=== PATIENT | male | born 1945 | race Caucasian/White ===

== ENCOUNTER → 2017-02-14 11:44 | Day surgery (SDC) | payer OTHER ==
--- NOTE | 2017-01-24 17:04 | HP ---
CC: Anjel Reyes MD, at [facility] ADMISSION HISTORY AND PHYSICAL: DATE OF ADMISSION: 01/31/17 CHIEF COMPLAINT: Bilateral inguinal and umbilical hernias. HISTORY OF PRESENT ILLNESS: This is a 71-year-old generally healthy male who for the past 2 to 3 ye ars has noted bulging in both groins, left greater than right. These have been associated with occas ional achiness related to activity, though nothing to suggest incarceration or strangulation. The u mbilical area has been asymptomatic. He denies any change in GI or symptoms. He was seen in the office by Dr. Allison on 01/18/17, at which time exam confirmed the presence of bilateral inguinal hernias which were reducible and a small nontender umbilical hernia. Dr. Allison has discussed with him the indications for repair, the risks, benefits, and alternatives and the patient would like to proceed as scheduled with laparoscopic repair of bilateral inguinal hernias with mesh and repair of umbilical hernia. 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 PAST SURGICAL HISTORY: Previous surgeries include: 1. Left eyebrow lift. 2. ORIF of a toe fracture. CURRENT MEDICATIONS: 1. Aspirin 81 mg once daily which he will hold for 1 week preoperatively. 2. Glucosamine and chondroitin once daily. 3. Multivitamin once daily. 4. Rnzt-kzz-qzfpnya eye drops for dry eyes. 5. Vitamin C 500 mg once daily. 6. Viagra 100 mg 1/2 to 1 tablet p.r.n. DRUG ALLERGIES: None known. FAMILY HISTORY: Negative for anesthesia problems, bleeding or clotting disorders. SOCIAL HISTORY: The patient is . 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 He is a nonsmoker and drinks between 1 and 2 drinks per day. Denies other drug use. REVIEW OF SYSTEMS: General: No recent constitutional symptoms or acute illnesses. His weight has b een stable. Cardiovascular: He has a long history of occasional palpitations that last for 10 to 1 5 seconds and not associated with any chest pain or lightheadedness. He has not had any workup othe r than routine in-office EKG's and there have been no recent changes. Respiratory: No history of a sthma, chronic cough, or shortness of breath. GI: No problems reported. He did undergo colonoscop y within the past 5 years and there were a couple of polyps removed at that time. He is due for a r epeat exam later this year. He denies any interval symptoms. : Somewhat decreased stream. Noct uria x1 to 2. No other reported problems. Endocrine: No diabetes or thyroid dysfunction. Musculo skeletal: He does well in terms of arthritic pain with the current glucosamine and chondroitin prod uct. PHYSICAL EXAMINATION GENERAL: Well-nourished, well-developed male in no acute distress. VITAL SIGNS: Height 71 inches, weight 180 pounds. Temperature 97.5, blood pressure 118/68, pulse 6 6, respirations 16. HEENT: Pupils equal, round, and reactive. EOMs intact. He has a left-sided Kincaid's palsy. He does have bilateral hearing aids. Oropharynx: Teeth in good repair. No intraoral lesions. NECK: No lymphadenopathy, thyromegaly, or masses. LUNGS: Clear to auscultation. No wheezes or rales. HEART: Regular rate and rhythm. No murmur appreciated. ABDOMEN: Soft, nontender to palpation. No palpable masses or organomegaly. Hernia exams as noted i n the HPI per Dr. Allison, not re-examined. EXTREMITIES: No edema. RECTAL: Not done. BACK: No spinous process or CVA tenderness. NEUROLOGICAL: Grossly intact other than the Kincaid's palsy. SKIN: Warm and dry. No suspicious rashes or lesions. IMPRESSION: Bilateral inguinal and umbilical hernias. PLAN: Laparoscopic repair, bilateral inguinal hernias with mesh; repair, umbilical hernia. MOISES RIVERA [id number]/[facility] #: [id number]
[~2017-02-14 11:44] MED LIST: Acetaminophen TAB* 325 MG PO PRN; Buffered Lidocaine 1% SYRIN* 3 ML/SYR SYRINGE INTRADERM ONE; Bupivacaine 0.5% W/EPI SDV* 30 ML VIAL ONE; Dexamethasone IV* 4 MG/ML 1 ML (4 MG) ONE; DiMENhydriNATE IV* 50 MG/ML VIAL IV PUSH PRN; DiMENhydriNATE IV* 50 MG/ML VIAL ONE; Famotidine IV* 10 MG/ML 2 ML (20 mg) IV ONE; Famotidine IV* 10 MG/ML 2 ML (20 mg) ONE; HYDROmorphone* 1 MG/ML 1 ML SYR IV PRN; Ketorolac INJ* 30 MG/ML 1 ML VIAL ONE; Lidocaine 2% PF* 5 ML VIAL ONE; Midazolam* 1 MG/ML 5 ML VIAL (5 MG) ONE; Ondansetron INJ* 2 MG/ML VIAL ONE; Propofol* 10 MG/ML 20 ML BTL IV PUSH ONE; Rocuronium* 10 MG/ML VIAL ONE; Succinylcholine* 20 MG/ML 10 ML VIAL ONE; ceFAZolin 2 GM PREMIX(*) 2 GM/50 ML BAG IVPB ONE; fentaNYL* 50 MCG/ML 2 ML VIAL (100 MCG VIAL) ONE; oxyCODONE TAB* 5 MG TAB ONE; oxyCODONE TAB* 5 MG TAB PO PRN
[2017-02-14 17:20] VITALS: BP 112/61
--- NOTE | 2017-02-15 04:53 | OP ---
DATE OF OPERATION: 02/14/17 [facility] DATE OF : 45 SURGEON: Miguel A Allison MD ELIGIBILITY CONSULTANT: MOISES Funes ANESTHESIOLOGIST: Casandra Hernandez MD ANESTHESIA: General endotracheal. PRE-OP DIAGNOSES: Bilateral inguinal hernias and umbilical hernia. POST-OP DIAGNOSES: Bilateral inguinal hernias and umbilical hernia. OPERATIVE PROCEDURE: Laparoscopic preperitoneal repair of bilateral inguinal hernias with mesh and open repair of umbilical hernia. ESTIMATED BLOOD LOSS: Minimal. IV FLUIDS: Crystalloid. SPECIMENS: None. DRAINS: None. COMPLICATIONS: None. COUNTS: The instrument, needle, and sponge counts were correct. DESCRIPTION OF PROCEDURE: The patient was brought to the operating room and placed on the table supine. Sequential compression devices were placed on both lower extremities. He was administered general anesthesia and Buck catheter was placed. His abdomen was prepped and draped in the usual sterile fashion, then time-out was performed. Local anesthetic was infiltrated into the skin and soft tissue prior to making each incision. The initial incision was curvilinear infraumbilical incision and then blunt dissection was used to dissect at the rectus fascia to the right of midline. The fascia was incised transversely. The underlying muscles retracted laterally and then preperitoneal balloon dissector was positioned down the pubic symphysis; and, under direct visualization, this was insufflated with air. The balloon dissector was removed and then a 12-mm blunt port was placed with carbon dioxide to insufflate to pressure of 12 mmHg. The addition of two 5-mm trocars in the lower midline was made under direct visualization. Blunt dissection was then used to dissect out the preperitoneal space starting at the midline and extending this laterally identifying Niraj's ligament and there was noted to be a direct inguinal hernia, which was reduced. The inferior epigastric vessels were maintained in their appropriate position. The peritoneum was identified and this was dissected away from the cord structures preserving them. The dissection proceeded laterally to the anterior superior iliac spine. There was an inadvertent entry into the peritoneal sac and this was controlled with endoscopic clip placement. The dissection then proceeded on the left side mimicking what was performed on the right. Again, the dissection identifying the direct inguinal hernia was performed out laterally to the anterior superior iliac spine and also succeeded in small rent in the peritoneal sac which was again closed with endoscopic clip placement. The repair of the hernias was performed with the Bard 3DMax mesh using a large size patch on each side. First the left-sided repair was performed and this was positioned to cover the direct, indirect, and femoral spaces, and the mesh was sutured with the CapSure tacker to the pubic tubercle, Niraj's ligament, anterior abdominal wall musculature, and the lateral abdominal wall musculature well above the inguinal ligament. This mesh placement procedure was repeated for the right side repair. After completing the repair, the ports were removed under direct visualization and carbon dioxide was released. A closure of the anterior rectus fascia was performed with a 0 Polysorb in a running fashion. Next, the umbilical hernia was addressed. First, the umbilical stalk was elevated off the abdominal wall and its attachment was divided. A 1-cm umbilical hernia was identified and the contents were reduced. Fascial edges were identified, healthy fascia was incorporated into the repair using 0 Ti-Cron suture in a running fashion, running to and fro, and tied to itself. Subsequently, the umbilical stalk was reapproximated to the anterior abdominal wall with 3-0 Polysorb. The skin incisions were closed with 4-0 Monocryl in a subcuticular fashion. Steri- Strips were applied. The patient tolerated the procedure well. He was extubated and transferred to recovery room in stable condition. [id number]/[facility] #: [id number] EILEEN
== END | disposition home or self-care (01) ==
LOC: OR 11:44
PROVIDERS: ATTEND Surgery
DX: K40.20 Bilateral inguinal hernia, without obstruction or gangrene, not specified as recurrent (principal); K42.9 Umbilical hernia without obstruction or gangrene; I49.3 Ventricular premature depolarization
CPT/HCPCS: A9270-GY; C1776; C1781; J0330; J0690; J1100; J1240; J1885; J2250; J2405; J2704; J3010

== ENCOUNTER 2017-07-31 08:58 | Emergency (ER) | payer OTHER ==
[2017-07-31 09:11] VITALS: BP 107/69
--- NOTE | 2017-07-31 09:26 | UC ---
Ear Complaint HPI - HPI Summary HPI Summary: 72 yo male presents here to have part of HEARING AID remove from right ear no pain - History of Current Complaint Chief Complaint: UCForeignBody Stated Complaint: FB IN EAR Time Seen by Provider: 07/31/17 09:04 Hx Obtained From: Patient Onset/Duration: Sudden Onset, Lasting Hours Severity Initially: Mild Severity Currently: Mild Pain Intensity: 1 Pain Scale Used: 0-10 Numeric Associated Signs/Symptoms: Positive: Foreign Body Sensation - Allergies/Home Medications Allergies/Adverse Reactions: Allergies Allergy/AdvReac Type Severity Reaction Status Date / Time No Known Allergies Allergy Verified 07/31/17 09:11 Home Medications: Home Medications Warfarin TAB(*) [Coumadin TAB(*)] 5 mg PO DAILY 07/31/17 [History Confirmed 10/06] traZODone TAB* [Desyrel TAB*] 50 mg PO BEDTIME PRN 07/31/17 [History Confirmed 07/31/17] PMH/Surg Hx/FS Hx/Imm Hx Previously Healthy: Yes Cardiovascular History: Other Other Cardiovascular History: valvular heart disease - Surgical History Surgical History: Yes Surgery Procedure, Year, and Place: 30 YRS AGO, RIGHT LITTLE TOE, [facility]. 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 - Family History Known Family History: Positive: Hypertension - Social History Alcohol Use: Daily Alcohol Amount: 1-2 drinks a day Substance Use Type: None Smoking Status (MU): Never Smoked Tobacco Have You Smoked in the Last Year: No Review of Systems Constitutional: Negative Skin: Negative Eyes: Negative ENT: Negative Respiratory: Negative Cardiovascular: Negative Gastrointestinal: Negative Genitourinary: Negative Motor: Negative Neurovascular: Negative Musculoskeletal: Negative Neurological: Negative Psychological: Negative Is Patient Immunocompromised?: No All Other Systems Reviewed And Are Negative: Yes Physical Exam Triage Information Reviewed: Yes Appearance: Well-Appearing, No Pain Distress, Well-Nourished Vital Signs: Initial Vital Signs Temp 97.3 F 07/31/17 09:05 Pulse 79 07/31/17 09:05 Resp 18 07/31/17 09:05 BP 107/69 07/31/17 09:05 Pulse Ox 99 07/31/17 09:05 Vital Signs Reviewed: Yes Eyes: Positive: Conjunctiva Clear ENT: Positive: TMs normal, Other: - FB right ear. 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
== END 2017-07-31 09:30 | disposition home or self-care (01) ==
LOC: UCEAST 08:58
DX: T16.1XXA Foreign body in right ear, initial encounter (principal); W45.8XXA Other foreign body or object entering through skin, initial encounter; Y92.9 Unspecified place or not applicable
CPT/HCPCS: 99211; G0463

== ENCOUNTER 2019-02-03 01:16 | Emergency (ER) | payer MEDICARE, OTHER ==
--- OUTSIDE RECORDS SUMMARY | 2019-02-03 01:27 | XMS REPORT | Continuity of Care Document ---
:1945 External Reference #:[id number] Author Name Jayro Cochran Care Team Providers Name Role Phone Edi Ferreira DO Primary Care Physician Unavailable Payers Date Identification Numbers Payment Provider Subscriber Policy Number: [id number] [employer] Ilya Bang PayID: [id number] [address] [place] [address] Policy Number: [id number] Medicare Ilya Bang PayID: [id number] [address] [place] [address] Advance Directives Description No Information Available Problems Description No Information Family History Date Family Member(s) Observation Comments General Bladder Cancer General Heart Disease General Diabetes Father Hypercholesterolemia Father due to Bladder Cancer () - at 67 Mother due to Natural Causes () - at 96 Onset: Siblings 1 1 brother (full (03/14/2017) brother) with MR, (MV (age 75 Years) repair age 65).arrhythmia hx requiring ablation 1 half brother - hx unknown 3 sisters - oldest sister from [place] 3 half sisters Social History Type Date Description Comments Sex Unknown Marital Status Lives With 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 Lisinopril 09/11/20 Active Tablets 2.5mg 90tab 1/2 tab by Niraj 17 s mouth every F. day Mitchell Harrison Metoprolol 06/22/20 Active Tablets 25mg 180ta 1/2 tablet Niraj Succinate ER 17 ER 24HR bs by mouth F. once a day Mitchell Harrison Glucosamine Active Capsules 1 po bid Unknown Chondroitin 500 00 Complex Multivitamin Active Tablets 1 by mouth Unknown Adult 00 every day Vitamin C Active Tablets 500mg 1 by mouth Unknown 00 twice a day Aspirin Active Tablets 81mg 90tab 1 by mouth Unknown 00 DR s every other day Magnesium Oxide Active Tablets 250mg 1 by mouth Unknown 00 every day Soothe XP Active 2 gtt Left Unknown 00 eye twice daily Soothe Night Active Ointment 1/4 inch Unknown Time 00 application L eye at bedtime Cialis Active Tablets 10mg 1 po qd prn Unknown 00 Sacul 01/25/20 Hx Tablets 5-325mg 20tab 1-2 tab by Lillian Garvey 17 - s mouth every , Unknown 4 hours as MD needed Viagra Hx Tablets 100mg by mouth Unknown 00 - 0.5 or 1 07/24/20 tab 1h 18 before intercourse Aspirin Hx Tablets 81mg 1 by mouth Unknown 00 - DR every day Unknown Ibuprofen Hx Tablets 600mg three times Unknown 00 - a day prn 10/25/20 (rare use) 17 Coumadin Hx Tablets 3mg as directed Unknown 00 - (managed by 09/10/20 Dr. Santi Ferreira) Coumadin Hx Tablets 1mg take as Unknown 00 - directed 09/10/20 (managed by Santi Ferreira) Trazodone HCL Hx Tablets 50mg 1 tab po Unknown 00 - weekly as 10/28/20 needed 18 (very rare) Immunizations Description No Information Available Vital Signs Date Vital Result Comment 01/17/2019 3:14pm Height 72 inches 6'0" Weight 182.00 lb with shoes Heart Rate 72 /min BP Systolic Sitting 104 mmHg BP Diastolic Sitting 74 mmHg BP Systolic Standing 100 mmHg BP Diastolic Standing 70 mmHg BP Systolic Lying Down 122 mmHg la repeat sitting BP Diastolic Lying Down 74 mmHg la repeat sitting BMI (Body Mass Index) 24.7 kg/m2 Ejection Fraction 40-45% stress echo09/26/18 10/29/2018 11:25am Height 72 inches 6'0" Weight 182.00 lb with shoes Heart Rate 72 /min BP Systolic 100 mmHg lue BP Diastolic 76 mmHg lue BMI (Body Mass Index) 24.7 kg/m2 Ejection Fraction 50-55% 02/06/18 echocardiogram 07/25/2018 1:27pm Height 72 inches 6'0" Weight 180.25 lb Heart Rate 68 /min BP Systolic Sitting 104 mmHg LA, reg BP Diastolic Sitting 72 mmHg LA, reg BMI (Body Mass Index) 24.4 kg/m2 Ejection Fraction 50%-55% 02/06/18 echo 12/26/2017 11:12am Height 72 inches 6'0" Weight 182.50 lb Heart Rate 72 /min BP Systolic 110 mmHg L/Arm Reg Cuff BP Diastolic 70 mmHg L/Arm Reg Cuff BMI (Body Mass Index) 24.7 kg/m2 Ejection Fraction 40-45% closer to 40% Echocardiogram 08/22/2017 11/30/2017 2:22pm Heart Rate 76 /min apical BP Systolic 108 mmHg Ra, reg cuff BP Diastolic 66 mmHg Ra, reg cuff BP Systolic Sitting 112 mmHg LA, reg cuff BP Diastolic Sitting 68 mmHg LA, reg cuff BP Systolic Standing 104 mmHg Ra, reg cuff BP Diastolic Standing 66 mmHg Ra, reg cuff 10/25/2017 12:59pm Height 72 inches 6'0" Weight 181.50 lb with shoes Heart Rate 84 /min BP Systolic Sitting 120 mmHg LA reg cuff BP Diastolic Sitting 78 mmHg LA reg cuff BMI (Body Mass Index) 24.6 kg/m2 Ejection Fraction 40%-45% echo 08/22/17 10/03/2017 9:11am Height 72 inches 6'0" Weight 182.00 lb with shoes Heart Rate 76 /min BP Systolic Sitting 116 mmHg Lue reg cuff BP Diastolic Sitting 80 mmHg Lue reg cuff BP Systolic Standing 108 mmHg Lue reg cuff BP Diastolic Standing 76 mmHg Lue reg cuff Respiratory Rate 16 /min BMI (Body Mass Index) 24.7 kg/m2 Ejection Fraction 40-45% 08/22/2017-echo 09/11/2017 9:09am Height 72 inches 6'0" Weight 181.12 lb with shoes Heart Rate 82 /min BP Systolic Sitting 110 mmHg Lue reg cuff BP Diastolic Sitting 70 mmHg Lue reg cuff Respiratory Rate 17 /min BMI (Body Mass Index) 24.6 kg/m2 Ejection Fraction 40-45% date 08/22/2017 ECHO 07/19/2017 10:57am Height 72 inches 6'0" Weight 180.50 lb with shoes Heart Rate 80 /min BP Systolic 132 mmHg LA reg cuff BP Diastolic 80 mmHg LA reg cuff BP Systolic Sitting 126 mmHg LA reg cuff in office BP Diastolic Sitting 84 mmHg LA reg cuff in office BMI (Body Mass Index) 24.5 kg/m2 07/10/2017 10:43am Height 72 inches 6'0" Heart Rate 80 /min BP Systolic Sitting 104 mmHg LA, regular BP Diastolic Sitting 78 mmHg LA, regular BP Systolic Standing 105 mmHg LA, regular, stand BP Diastolic Standing 70 mmHg LA, regular, stand 06/20/2017 1:36pm Height 72 inches 6'0" Weight 176.00 lb with shoes Heart Rate 94 /min BP Systolic Sitting 116 mmHg LA reg cuff BP Diastolic Sitting 74 mmHg LA reg cuff BMI (Body Mass Index) 23.9 kg/m2 Ejection Fraction 55% - 60% Moe 04/21/17 05/17/2017 12:53pm Height 72 inches 6'0" Weight 182.00 lb with shoes Heart Rate 66 /min BP Systolic Sitting 110 mmHg LA reg cuff BP Diastolic Sitting 62 mmHg LA reg cuff BMI (Body Mass Index) 24.7 kg/m2 Ejection Fraction 50% - 55% echo 05/10/17 03/14/2017 1:41pm Height 72 inches 6'0" Weight 187.00 lb w/shoes Heart Rate 70 /min BP Systolic Sitting 132 mmHg LA reg cuff BP Diastolic Sitting 90 mmHg LA reg cuff BP Systolic Standing 106 mmHg la repeat sitting BP Diastolic Standing 61 mmHg la repeat sitting BMI (Body Mass Index) 25.4 kg/m2 Ejection Fraction 60-65% Echo 02/03/17 03/08/2017 11:34am Heart Rate 66 /min BP Systolic 124 mmHg BP Diastolic 72 mmHg Respiratory Rate 18 /min Body Temperature 97.6 F 02/22/2017 1:54pm Heart Rate 72 /min BP Systolic 126 mmHg BP Diastolic 62 mmHg Respiratory Rate 16 /min Body Temperature 97.6 F 01/24/2017 1:05pm Height 71 inches 5'11" Weight 179.00 lb Heart Rate 60 /min BP Systolic 118 mmHg BP Diastolic 68 mmHg Respiratory Rate 16 /min Body Temperature 97.5 F BMI (Body Mass Index) 25.0 kg/m2 01/18/2017 3:12pm Height 71 inches 5'11" Weight 180.00 lb Heart Rate 72 /min BP Systolic 118 mmHg BP Diastolic 78 mmHg Respiratory Rate 18 /min Body Temperature 97.6 F BMI (Body Mass Index) 25.1 kg/m2 Results Test Date Facility Test Result H/L Range Note Basic Metabolic 10/22/2018 [facility] Sodium 140 mmol/L N 135- 145 Panel [address] [place] [address] [phone] Potassium 4.4 mmol/L N 3.5-5.0 Chloride 105 mmol/L N 101-111 Co2 Carbon Dioxide 29 mmol/L N 22-32 Anion Gap 6 mmol/L N 2-11 Glucose 100 mg/dL N 70-100 Blood Urea Nitrogen 22 mg/dL N 6-24 Creatinine 1.00 mg/dL N 0.67-1.17 BUN/Creatinine Ratio 22.0 High 8-20 Calcium 10.1 mg/dL N 8.6-10.3 Egfr Non- 73.2 >60 Egfr 88.6 >60 1 Basic Metabolic Panel 10/17/2018 [facility] Sodium 137 mmol/L N 135-145 [address] [place] [address] [phone] Chloride 104 mmol/L N 101-111 Co2 Carbon Dioxide 28 mmol/L N 22-32 Glucose 109 mg/dL High 70-100 Blood Urea Nitrogen 20 mg/dL N 6-24 Creatinine 0.93 mg/dL N 0.67-1.17 BUN/Creatinine Ratio 21.5 High 8-20 Calcium 10.0 mg/dL N 8.6-10.3 Egfr Non- 79.6 >60 Egfr 96.4 >60 2 Potassium TNP mmol/L 3.5-5.0 3 Anion Gap 5 mmol/L N 2-11 Laboratory test 10/17/2018 [facility] Magnesium 2.0 mg/dL N 1.9-2.[address] [place] [address] [phone] Laboratory test 12/01/2017 [facility] Magnesium 2.0 mg/dL N 1.9-2.[address] [place] [address] [phone] CBC Auto Diff 12/01/2017 [facility] White Blood 7.1 N 3.5- 10.[address] Count 10^3/[place] [address] [phone] Red Blood Count 5.30 10^6/uL N 4.0-5.4 Hemoglobin 15.3 g/dL N 14.0-18.0 Hematocrit 45 % N 42-52 Mean Corpuscular Volume 85 fL N 80-94 Mean Corpuscular Hemoglobin 29 pg N 27-31 Mean Corpuscular HGB Conc 34 g/dL N 31-36 Red Cell Distribution Width 15 % N 10.5-15 Platelet Count 248 10^3/uL N 150-450 Mean Platelet Volume 7 um3 Low 7.4-10.4 Abs Neutrophils 4.1 10^3/uL N 1.5-7.7 Abs Lymphocytes 2.3 10^3/uL N 1.0-4.8 Abs Monocytes 0.5 10^3/uL N 0-0.8 Abs Eosinophils 0.1 10^3/uL N 0-0.6 Abs Basophils 0 10^3/uL N 0-0.2 Abs Nucleated RBC 0 10^3/uL Granulocyte % 58.5 % N 38-83 Lymphocyte % 32.6 % N 25-47 Monocyte % 7.3 % N 1-9 Eosinophil % 1.1 % N 0-6 Basophil % 0.5 % N 0-2 Nucleated Red Blood Cells % 0.1 Protein 12/01/2017 [facility] Total 6.7 g/dL 6.3 - Electrophoresis [address] Protein(Pep) 7.9 [place] [address] [phone] Albumin 3.4 g/dL 3.4-4.7 Alpha-1 Globulin 0.3 g/dL 0.1-0.3 Alpha-2 Globulin 0.9 g/dL 0.6-1.0 Beta Globulin 1.1 g/dL 0.7-1.2 Gamma Globulin 1.0 g/dL 0.6-1.6 Albumin/Globulin Ratio 1.05 Impression See Comment 4 Basic Metabolic Panel 12/01/2017 [facility] Sodium 139 mmol/L N 133-145 [address] [place] [address] [phone] Potassium 4.3 mmol/L N 3.5-5.0 Chloride 108 mmol/L N 101-111 Co2 Carbon Dioxide 23 mmol/L N 22-32 Anion Gap 8 mmol/L N 2-11 Glucose 86 mg/dL N 70-100 Blood Urea Nitrogen 25 mg/dL High 6-24 Creatinine 0.86 mg/dL N 0.67-1.17 BUN/Creatinine Ratio 29.1 High 8-20 Calcium 9.6 mg/dL N 8.6-10.3 Egfr Non- 87.4 >60 Egfr 112.4 >60 5 Inr/Protime 11/06/2017 [facility] Inr 1.06 High 0.77-1.02 6 [address] [place] [address] [phone] Basic Metabolic 09/26/2017 [facility] Sodium 140 mmol/L N 133- 145 Panel [address] [place] [address] [phone] Potassium 4.5 mmol/L N 3.5-5.0 Chloride 106 mmol/L N 101-111 Co2 Carbon Dioxide 27 mmol/L N 22-32 Anion Gap 7 mmol/L N 2-11 Glucose 96 mg/dL N 70-100 Blood Urea Nitrogen 22 mg/dL N 6-24 Creatinine 0.87 mg/dL N 0.67-1.17 BUN/Creatinine Ratio 25.3 High 8-20 Calcium 9.9 mg/dL N 8.6-10.3 Egfr Non- 86.3 N >60 Egfr 110.9 N >60 7 Laboratory test 09/26/2017 [facility] Magnesium 2.0 mg/dL N 1.9-2.7 8 finding [address] [place] [address] [phone] 1 Because ethnic data is not always readily available, this report includes an eGFR for both -Americans and non- Americans. The National Kidney Disease Education Program (NKDEP) does not endorse the use of the MDRD equation for patients that are not between the ages of 18 and 70, are , have extremes of body size, muscle mass, or nutritional status, or are non- or non-. According to the National Kidney Foundation, irrespective of diagnosis, the stage of the disease is based on the level of kidney function: Stage Description GFR(mL/min/1.73 m(2)) 1 Kidney damage with normal or decreased GFR 90 2 Kidney damage with mild decrease in GFR 60-89 3 Moderate decrease in GFR 30-59 4 Severe decrease in GFR 15-29 5 Kidney failure <15 (or dialysis) 2 Because ethnic data is not always readily available, this report includes an eGFR for both -Americans and non- Americans. The National Kidney Disease Education Program (NKDEP) does not endorse the use of the MDRD equation for patients that are not between the ages of 18 and 70, are , have extremes of body size, muscle mass, or nutritional status, or are non- or non-. According to the National Kidney Foundation, irrespective of diagnosis, the stage of the disease is based on the level of kidney function: Stage Description GFR(mL/min/1.73 m(2)) 1 Kidney damage with normal or decreased GFR 90 2 Kidney damage with mild decrease in GFR 60-89 3 Moderate decrease in GFR 30-59 4 Severe decrease in GFR 15-29 5 Kidney failure <15 (or dialysis) 3 Specimen Hemolyzed. Result may not be valid. Unable to report test result due to hemolysis. 4 RESULT: No apparent monoclonal protein on serum electrophoresis. Test Performed by: [address] [id number] 5 Because ethnic data is not always readily available, this report includes an eGFR for both -Americans and non- Americans. The National Kidney Disease Education Program (NKDEP) does not endorse the use of the MDRD equation for patients that are not between the ages of 18 and 70, are , have extremes of body size, muscle mass, or nutritional status, or are non- or non-. According to the National Kidney Foundation, irrespective of diagnosis, the stage of the disease is based on the level of kidney function: Stage Description GFR(mL/min/1.73 m(2)) 1 Kidney damage with normal or decreased GFR 90 2 Kidney damage with mild decrease in GFR 60-89 3 Moderate decrease in GFR 30-59 4 Severe decrease in GFR 15-29 5 Kidney failure <15 (or dialysis) 6 Please note the change in INR reference range effective 17. 7 Because ethnic data is not always readily available, this report includes an eGFR for both -Americans and non- Americans. The National Kidney Disease Education Program (NKDEP) does not endorse the use of the MDRD equation for patients that are not between the ages of 18 and 70, are , have extremes of body size, muscle mass, or nutritional status, or are non- or non-. According to the National Kidney Foundation, irrespective of diagnosis, the stage of the disease is based on the level of kidney function: Stage Description GFR(mL/min/1.73 m(2)) 1 Kidney damage with normal or decreased GFR 90 2 Kidney damage with mild decrease in GFR 60-89 3 Moderate decrease in GFR 30-59 4 Severe decrease in GFR 15-29 5 Kidney failure <15 (or dialysis) 8 non-fasting in 2 weeks Procedures Date Code Description Status 01/17/2019 27302 EKG Tracing & Interpretation Completed 09/26/2018 82866 ECHO Stress Test Incl Perf Contiuous ekg Monitoring Completed W/Phys Superv 07/25/2018 87042 EKG Tracing & Interpretation Completed 02/06/2018 18397 ECHO Transthoracic, Real-Time 2D With Doppler And Completed Color Flow 02/06/2018 08163 ECHO Transthoracic, Real-Time 2D With Doppler And Completed Color Flow 12/26/2017 51679 EKG Tracing & Interpretation Completed 10/25/2017 09719 EKG Tracing & Interpretation Completed 10/03/2017 25529 EKG Tracing & Interpretation Completed 10/03/2017 87354 EKG Tracing & Interpretation Completed 08/22/2017 57406 Echocardiogram, Limited Study Completed 07/19/2017 48349 EKG Tracing & Interpretation Completed 07/10/2017 24662 EKG Tracing & Interpretation Completed 06/21/2017 20977 ECHO Transthoracic, Real-Time 2D With Doppler And Completed Color Flow 06/20/2017 19861 EKG Tracing & Interpretation Completed 06/05/2017 [id number] Diabetic Retinal Eye Exam Completed 05/17/2017 60824 EKG Tracing & Interpretation Completed 05/10/2017 11367 ECHO Stress Test Incl Perf Contiuous ekg Monitoring Completed W/Phys Superv 05/10/2017 41110 ECHO Stress Test Incl Perf Contiuous ekg Monitoring Completed W/Phys Superv 04/21/2017 01175 Color Flow Doppler/Interp & Reprt Completed 04/21/2017 76554 Pulse Wave/Continuous-Interp.RPT Completed 04/21/2017 07201 Echocardiography, Transesophageal, Real Time W/Image Completed 2D W/W/O M-M 03/14/2017 98893 EKG Tracing & Interpretation Completed 02/14/2017 01612 Laparoscopy, Surgical Repair Initial Inguinal Hernia Completed 02/14/2017 71473 Laparoscopy, Surgical Repair Initial Inguinal Hernia Completed 02/03/2017 05346 ECHO Transthoracic, Real-Time 2D With Doppler And Completed Color Flow 02/21/2012 [id number] Colonoscopy Completed 02/14/2012 [id number] Colonoscopy Completed Encounters Type Date Location Provider Dx Diagnosis Office Visit 10/29/2018 [facility] Thalia Hurtado, I42.9 Cardiomyopathy, 11:30a N.P. unspecified I34.0 Nonrheumatic mitral (valve) insufficiency R42 Dizziness and giddiness Office Visit 07/25/2018 [facility] Niraj Sexton I42.9 Cardiomyopathy, 1:30p Cardiology Mitchell Harrison unspecified I34.0 Nonrheumatic mitral (valve) insufficiency R07.9 Chest pain, unspecified R42 Dizziness and giddiness Office Visit 12/26/2017 11:20a [facility] Niraj Sexton I10 Essential (primary) Mitchell Harrison hypertension I49.3 Ventricular premature depolarization I44.4 Left anterior fascicular block I34.0 Nonrheumatic mitral (valve) insufficiency I42.9 Cardiomyopathy, unspecified Office Visit 11/30/2017 2:00p [facility] Nurse Visit cc I10 Essential (primary) hypertension Office Visit 10/25/2017 1:30p [facility] Niraj Sexton I44.4 Left ashlie Harrison M.D. fascicular block I49.3 Ventricular premature depolarization I34.0 Nonrheumatic mitral (valve) insufficiency I42.9 Cardiomyopathy, unspecified Office Visit 10/03/2017 9:30a [facility] Flakita Noonan, I49.3 [facility] premature depolarization I34.0 Nonrheumatic mitral (valve) insufficiency I42.9 Cardiomyopathy, unspecified Office Visit 09/11/2017 9:30a [facility] Flakita Noonan, I42.9 Cardiomyopathy, [facility] unspecified I34.0 Nonrheumatic mitral (valve) insufficiency Office Visit 07/19/2017 11:00a [facility] Flakita Noonan, I34.0 Nonrheumatic mitral [place] (valve) insufficiency I42.9 Cardiomyopathy, unspecified Office Visit 06/20/2017 2:00p [facility] Niraj Sexton I34.1 Nonrheumatic Mitchell Harrison mitral (valve) prolapse Office Visit 05/17/2017 1:10p [facility] Niraj Sexton I34.1 Nonrheumatic Mitchell Harrison mitral (valve) prolapse R00.2 Palpitations R06.00 Dyspnea, unspecified Office Visit 03/14/2017 2:00p [facility] Niraj Sexton R01.1 Cardiac murmurChristy M.D. unspecified R00.2 Palpitations I34.0 Nonrheumatic mitral (valve) insufficiency R06.00 Dyspnea, unspecified R94.31 Abnormal electrocardiogram [ECG] [EKG] Office Visit 01/18/2017 3:00p Surgical Miguel A Allison, K40.20 [facility] , FACS hernia, w/o obst or gangrene, not spcf as recur K42.9 Umbilical hernia without obstruction or gangrene Plan of Treatment 01/17/2019 - Niraj Harrison M.D.I42.9 Cardiomyopathy, unspecifiedNew Orders :Echocardiogram, Ordered: 01/17/19Follow up:ov 3-4 mI34.0 Nonrheumatic mitral ( valve) [id number] Dizziness and jiawqoefxU36.31 Abnormal electrocardiogram [ECG] [EKG]
--- NOTE | 2019-02-03 02:32 | ED ---
Palpitations / Dysrhythmia - HPI Summary HPI Summary: This patient is a 73 year old M presenting to ED with a chief complaint of afib since earlier today. He reports he has an apple watch that does EKGs. He saw that he had afib and he reports that he could feel it. On the way to [facility] [place], it stopped. The CC is described as throbbing in my chest, towards my throat. The patient rates the pain 0/10 in severity. Symptoms aggravated by nothing. Symptoms alleviated by spontaneous resolution. Patient reports slightly light- headedness (in the past couple of days). Patient denies SOB and CP. The patient is not on any blood thinners. He had 1.5 glasses of wine tonight. The patient sees Yue Harrison. - History of Current Complaint Chief Complaint: EDDysrhythmPalp Time Seen by Provider: 02/03/19 02:20 Hx Obtained From: Patient Onset/Duration: Sudden Onset, Lasting Minutes, Resolved Severity Currently: None Character: Irregular Aggravating: Nothing Alleviating: Nothing - Allergy/Home Medications Allergies/Adverse Reactions: Allergies Allergy/AdvReac Type Severity Reaction Status Date / Time No Known Allergies Allergy Verified 02/03/19 01:18 PMH/Surg Hx/FS Hx/Imm Hx Endocrine/Hematology History: Denies: Hx Diabetes, Hx Thyroid Disease Cardiovascular History: Reports: Other Cardiovascular Problems/Disorders - periodic arrhythmia, MD is aware Denies: Hx Hypertension Respiratory History: Denies: Hx Asthma, Hx Chronic Obstructive Pulmonary Disease (COPD) GI History: Denies: Hx Ulcer Musculoskeletal History: Reports: Hx Arthritis - knees Sensory History: Reports: Hx Contacts or Glasses - GLASSES reading and driving, Hx Hearing Aid - [facility] History: Reports: Hx Contacts or Glasses - GLASSES reading and driving Neurological History: Reports: Hx Nerve Disease - LEFT FACIAL PARALYSIS, Other Neuro Impairments/Disorders - hx of shingles late summer/early fall 2013 Psychiatric History: Reports: Hx Anxiety - in the past, Hx Depression - in the past - Surgical History Surgery Procedure, Year, and Place: 30 YRS AGO, RIGHT LITTLE TOE, [facility] [place]. 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 Hx Anesthesia Reactions: No Infectious Disease History: No Infectious Disease History: Denies: Hx Clostridium Difficile, Hx Hepatitis, Hx Human Immunodeficiency Virus (HIV), Hx of Known/Suspected MRSA, Hx Shingles, Hx Tuberculosis, Hx Known/ Suspected VRE, Hx Known/Suspected VRSA, History Other Infectious Disease, Traveled Outside the [place] in Last 30 Days - Family History Known Family History: Positive: Hypertension - Social History Alcohol Use: Daily Alcohol Amount: 1-2 drinks a day Substance Use Type: Reports: None Smoking Status (MU): Never Smoked Tobacco Have You Smoked in the Last Year: No Review of Systems Positive: Other - afib. Negative: Chest Pain Negative: Shortness Of Breath Neurological: Other - light-headedness for the past couple of days All Other Systems Reviewed And Are Negative: Yes Physical Exam - Summary Physical Exam Summary: Appearance: Well-appearing, Well-nourished, lying in bed comfortably Skin: Warm, dry, no obvious rash Eyes: sclera anicteric, no conjunctival pallor ENT: mucous membranes moist, pharynx appears normal Neck: Supple, nontender Respiratory: Clear to auscultation, no signs of respiratory distress Cardiovascular: Normal S1, S2. No murmurs. Normal distal pulses in tibial and radial bilaterally. 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 Psychiatric: affect is normal, does not appear anxious or depressed Triage Information Reviewed: Yes Vital Signs On Initial Exam: Initial Vitals Temp Pulse Resp BP Pulse Ox 98.3 F 84 16 114/69 94 02/03/19 01:17 02/03/19 01:17 02/03/19 01:17 02/03/19 01:17 02/03/19 01:17 Vital Signs Reviewed: Yes Diagnostics - Vital Signs Vital Signs Temp Pulse Resp BP Pulse Ox 02/03/19 02:13 75 17 93/69 93 02/03/19 01:17 98.3 F 84 16 114/69 94 - Laboratory Result Diagrams: 02/03/19 02:39 Lab Statement: Any lab studies that have been ordered have been reviewed, and results considered in the medical decision making process. - EKG 0227 Cardiac Rate: NL - 72 BPM EKG Rhythm: Sinus Rhythm Summary of EKG Findings: incomplete LBBB Course/Dx - Course Assessment/Plan: This patient is a 73 year old M presenting to ED with a chief complaint of afib since earlier today. EKG reveals NSR at 72 BPM and incomplete LBBB. The patient will be discharged with dx of paroxysmal atrial fibrillation. Patient understands and agrees with this plan. - Diagnoses Differential Diagnosis/HQI/PQRI: Positive: Other - paroxysmal atrial fibrillation Provider Diagnoses: Paroxysmal atrial fibrillation Discharge - Sign-Out/Discharge Documenting (check all that apply): Patient Departure - discharge Patient Received Moderate/Deep Sedation with Procedure: No - Discharge Plan Condition: Good Disposition: HOME Patient Education Materials: A-fib (Atrial Fibrillation) (ED) Referrals: Niraj Harrison MD [Medical Doctor] - Additional Instructions: Call Dr. Harrison's office on Monday. He may want to order an ambulatory heart monitoring test to see if you are having more bouts of the atrial fib, and he will want to talk to you about the possibility of putting you on anticoagulant medication. If the irregularity recurs, you do not necessarily have to come right to the hospital again unless you feel sick (chest pain, trouble breathing , feeling dizzy or lightheaded, etc.), but if it continues for more than 4-6 hours come in and we may need to cardiovert you. Most of the time your heart will revert back to a normal rhythm fairly quickly, sometimes within a few minutes. - Attestation Statements Document Initiated by Nathan: Yes Documenting Scribe: Noah Garvey Provider For Whom Nathan is Documenting (Include Credential): Omid Kinsey MD Scribe Attestation: I, Noah Garvey, scribed for Omid Kinsey MD on 02/03/19 at 0257. Status of Scribe Document: Ready
[2019-02-03 02:47] LABS: ABS Basophils 0 10^3/ul (0-0.2); ABS Eosinophils 0.1 10^3/ul (0-0.6); ABS Lymphocytes 1.6 10^3/ul (1.0-4.8); ABS Monocytes 0.7 10^3/ul (0-0.8); ABS Neutrophils 5.5 10^3/ul (1.5-7.7); ABS Nucleated RBC 0 10^3/ul; Eosinophil % 1.2 %; Hematocrit 45 % (36-46); Hemoglobin 15.3 g/dL (14.0-18.0); Mean Corpuscular HGB Conc 34 g/dL (31-36); Mean Corpuscular Hemoglobin 30 pg (27-31); Mean Corpuscular Volume 87 fL (80-94); Nucleated Red Blood Cells % 0; Platelet Count 242 10^3/uL (150-450); Red Blood Count 5.14 10^6 /uL (4.18-5.48); Red Cell Distribution Width 14 % (10.5-15); White Blood Count 7.8 10^3/uL (3.5-10.8)
[2019-02-03 03:02] LABS: Albumin 3.9 g/dL (3.2-5.2); Albumin/Globulin Ratio 1.6 (1-3); BUN/Creatinine Ratio 24.4 (8-20); Calcium 9.3 mg/dL (8.6-10.3); EGFR African American 111.4 (>60); EGFR Non-African American 92.1 (>60); Globulin 2.4 g/dL (2-4); Potassium 4.2 mmol/L (3.5-5.0); Total Bilirubin 0.3 mg/dL (0.2-1.0); Total Protein 6.3 g/dL (6.4-8.9)
[2019-02-03 03:24] LABS: TSH (Thyroid Stimulating Horm) 4.16 mcIU/mL (0.34-5.60)
[2019-02-03 04:06] VITALS: BP 103/64
== END 2019-02-03 04:07 | disposition home or self-care (01) ==
LOC: ED 01:16
DX: I48.91 Unspecified atrial fibrillation (principal); I44.7 Left bundle-branch block, unspecified
CPT/HCPCS: 36415; 80053; 84443; 85025; 93005; 99283

== ENCOUNTER 2019-05-15 12:14 | Observation (INO) | payer MEDICARE ==
--- OUTSIDE RECORDS SUMMARY | 2019-05-15 12:26 | XMS REPORT | Continuity of Care Document ---
:1945 External Reference #:[id number] Author Name Edi Ferreira D.O. Address [address] [place] [address] Care Team Providers Name Role Phone HCP/LW on file Primary Care Physician Unavailable Payers Date Identification Numbers Payment Provider Subscriber Effective: 2018 Policy Number: [id number] [employer] Medicare Ppo Saba Veliz PayID: [id number] [place] [address] Problems Active Problems Provider Date Sensorineural hearing loss Anjel Reyes M.D. Onset: 01/13/2011 Psychosexual dysfunction associated with Anjel Reyes M.D. Onset: 05/2014 inhibited libido Bilateral inguinal hernia Anjel Reyes M.D. Onset: 02/12/2015 Mitral valve disorder Anjel Reyes M.D. Onset: 02/09/2017 Medication monitoring Edi Ferreira D.O. Onset: 06/08/2017 Psychogenic impotence Edi Ferreira D.O. Onset: 04/05/2018 Family History Date Family Member(s) Observation Comments Father due to Bladder () - AT AGE 67 Cancer Mother Diabetes, Nos BORDERLINE : (age Mother due to Old Age 96 Years) Onset: (age 93 Mother Dementia started around 65 to 70 Years) Number of Children 1 son and 1 daughter First Son Sesar First Son 10/07/67 First Daughter Denisse First Daughter 10/11/72 Number of Siblings Siblings: 1 brother and 3 sisters First Brother sciatica First Brother Heart Problems of a rapid heart beat sort which resulted in heart damage history of developing valve problem surgery at age 65 was recommended and some kind of repair was done etiology was unclear First Brother TimBlessing in 2012 had MRI at 70 - had had a fall MRI was nl and then one in 2010 showed a area of damage ? cause - Onset: First Sister Parkinson's Disease (01/24/2014) (age 75 Years) Onset: First Sister Colon Cancer ruptured colon and (03/30/2017) terminal w mets to (age 78 Years) liver First Sister Mak age 74 in 2012 some memory decline Second Sister Well Second Sister Eliana 72 in 2011 Third Sister Well Third Sister Aicha age 69 in 2012 Paternal Grandfather Heart Disease Paternal Grandmother of chf in his 50s - unknown cause Maternal Grandfather Heart Disease Maternal Grandfather Stroke Paternal Uncles NH at age 72 - in the 1980s Paternal Uncle other uncle had some kind of heart problem with unknown type of heart operations in his 70 and 80s Social History Type Date Description Comments Sex Unknown Education Highest Level Completed College Marital Status Diet 01/17/2012 Calcium Intake taking a [id number] milk - 8 bo=208 cheese=0 yogurt=0 cottage cheese=0 other=0 goal 1200mg Diet Diet Recall 24 HR breakfast - oatmeal w milk, aplesuce, 1/2 banana snack nuts - pnuts w almonds w cashews and apricot lunch - soup split pea - w crackers, w coffee snack pm nut mix supper - salmon on cream cheese and bagel 1/2, no ghazal other brkfast eggs and toast 1/2 banana and coffee veggies - grows own and has veg beef stew and turkey soup w lots of veg Smoke-Free Home is smoke-free Work Status 1999 Retired [employer] Hand Dominance 04/23/2019 Right-handed Advance Directive 01/13/2011 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 Hobbies 07/25/2008 [employer] Volunteering drives for [employer] Tobacco Use Start: Unknown Denies Cigarette Use ETOH Use 03/30/2017 Rarely consumes alcohol 2 beers or glasses wine a day Recreational Drug Use Denies Drug Use Tobacco Use Start: Unknown Non Smoker / No Tobacco Smoking Status Reviewed: 04/29/19 Non Smoker / No Tobacco Exercise Type/Frequency Exercises regularly tiw ski machine - gym 3/wk and gardening and bowling Sun Exposure moderate amount of sun exposure Sun Exposure Uses sunscreen Seat Belt/Car Seat always uses seat belt Currently Active Patient is currently sexually active Age [address] [place] 21 Years Old Sexual Hx Patients has had 2 sexual partners. Patient states heterosexual. Allergies, Adverse Reactions, Alerts Description No Known Drug Allergies Medications Active Medications SIG Qnty Indications Ordering Date Provider Doxycycline Hyclate 1 twice a day for 42caps A69.20 Edi Ferreira, 2018 100mg 21 days D.O. Capsules Cyclobenzaprine HCL 1 tab by mouth 30tabs Edi Ferreira, 04/23/2019 5mg every night for D.O. Tablets neck pain. will make you drowsy Tramadol HCL 1 by mouth every 6 30tabs Edi Ferreira, 04/23/2019 50mg Tablets hours as needed D.O. for pain Magnesium 1 daily Unknown 04/08/2019 250 Vitamin C 1 by mouth twice Unknown 04/08/2019 500mg Capsules daily Soothe XP 2 drops Left eye Unknown 04/08/2019 Solution twice daily Soothe Nighttime Dry 1/4 inch, Left eye Unknown 04/08/2019 Eye Therapy at bedtime Ointment Sotalol HCL take 1/2 tablet by Unknown 04/05/2019 80mg Tablets mouth twice a day Eliquis 1 tablet by mouth Unknown 03/26/2019 5mg Tablets twice daily Entresto 1/2 tablet by Unknown 03/13/2019 24-26mg Tablets mouth daily Metoprolol Succinate 1/2 tablet once Unknown 02/24/2019 ER daily 25mg Tablets ER 24HR Cialis take 1 tablet by 18tabs F52.21 Edi Ferreira, 04/05/2018 20mg Tablets mouth every day as D.O. needed for erectile dysfunction Glucosamine 500 complex 1 Unknown 08/30/2017 Chondroitin twice daily Multivitamin 1 PO qd 0tabs Anjel Centeno 02/14/2005 Kitty Reyes M.D. History Medications Cephalexin 1 tabs by mouth 10tabs L72.3 Edi Ferreira, 05/04/2018 - 500mg twice a day D.O. 05/09/2018 Tablets until gone Shingrix 1 shot repeat 1units Edi Ferreira, 04/05/2018 - 50mcg once in 2 months D.O. 08/03/2018 Suspension Rec Metoprolol Succinate 1/2 tab by Unknown 12/21/2017 - ER mouth in am and 02/24/2019 25mg Tablets ER 1/2 tab in 24HR evening Lisinopril take one tablet Unknown 12/21/2017 - 2.5mg by mouth every 04/05/2019 Tablets day for high blood pressure Zyrtec Allergy 1 by mouth every 30tabs L56.1 Edi Ferreira, 08/31/2017 - 10mg day D.O. 04/04/2018 Tablets Trazodone HCL take 1 tablet by 90tabs G47.00 Edi Ferreira, 07/13/2017 - 50mg mouth daily at D.O. 07/13/2018 Tablets bedtime for trouble sleeping Metoprolol 1 po daily Unknown 07/12/2017 - 12.5mg 12/21/2017 Warfarin Sodium use as directed, 60tabs Edi Ferreira, 06/13/2017 - 1mg take 1/2-1 tab D.O. 08/30/2017 Tablets by mouth daily Vitamin C 2 daily Unknown 06/06/2017 - 500 06/07/2017 Capsules Aspirin Low Dose take 1 tablet by Unknown 06/06/2017 - 81mg mouth every 03/26/2019 Chewtabs other day (prevent heart disease) Warfarin Sodium take 1-3 tablet 90tabs Edi Ferreira, 06/06/2017 - 3mg by mouth once D.O. 08/30/2017 Tablets daily Potassium Chloride Take 1 Tablet By 5tabs Unknown 06/06/2017 - Liz ER Mouth Daily For 06/11/2017 20Meq Tablets 5 Days While ER Taking Lasix Hydrocodone-Acetamin Take 1 To 2 100tabs Unknown 06/06/2017 - ophen Tablets By Mouth 08/30/2017 5-325mg Tablets Every 6 Hours as Needed For Pain Furosemide Take 1 Tablet By 5tabs Unknown 06/06/2017 - 40mg Mouth Daily For 06/11/2017 Tablets 5 Days Doxycycline Hyclate 1 twice a day 42caps 088.81 Edi Ferreira, 2014 - for 21 days D.O. 06/24/2015 100mg Capsules until gone Doxycycline Hyclate 2 now to prevent 2tabs E906.4 Anjel Centeno 04/05/2014 - lyme disease Mitchell Reyes 04/10/2014 100mg Tablets Calcium 600 1 qd Anjel Centeno 01/17/2013 - 600mg Mitchell Reyes 01/24/2014 Tablets Glucosamine OTC Anjel Centeno 01/16/2012 - Chondroitin Complex Mitchell Reyes 06/08/2017 Capsules Viagra take 1 tablet 18tabs F52.21 dEi Ferreira, 01/07/2010 - 100mg Tablets every 24 hours D.O. 05/03/2018 as needed as directed. maximum daily dose 1 Zoloft 1 po bid 180tabs 296.31 Anjel Centeno 07/25/2008 - 50mg Tablets Mitchell Reyes 08/26/2009 Abilify 1 qd 90tabs 296.31 Anjel Centeno 07/25/2008 - 5mg Tablets Mitchell Reyes 09/26/2009 Oxaprozin 2 PO qd For Knee 28tabs 719.46 Antwon Barreto 06/07/2006 - 600mg Pain Mitchell 06/21/2006 Tablets Lomotil 1 to 2 up to qid 40tabs 787.91 Anjel Centeno 02/20/2006 - 2.5mg;0.025 prn diarrhea Mitchell Reyes 03/02/2006 mg Tablets Abilify 296.31 Anjel Centeno 12/23/2005 - 5mg Tablets Mitchell Reyes 01/23/2008 Calcium 1 PO qd Anjel Centeno 02/14/2005 - 600mg Mitchell Reyes 01/16/2012 Vit C 1 PO qd Anjel Centeno 02/14/2005 - 500mg Mitchell Reyes 04/09/2019 Viagra 1 to 1/2 as 15tabs 302.72 Anjel Centeno 02/14/2005 - 50mg Tablets directed Mitchell Reyes 01/07/2010 Asp 1 Tab qd To 0tabs Anjel Centeno 11/24/2004 - 81mg Tablets Prevent A Stroke Mitchell Reyes 01/26/2017 Amoxil 1 PO tid Until 30caps 466.0 Anjel Centeno 11/24/2004 - 250mg Capsules Gone Mitchell Reyes 12/04/2004 Zoloft 1 PO qod 0tabs 296.31 Unknown - 25mg Tablets 01/23/2008 Abilify 1 po q hs 296.31 Unknown - 5mg Tablets 06/28/2010 Sertraline HCL 2 po qd 90tabs 296.31 Unknown - 50mg 06/26/2010 Tablets Magnesium Oxide 1/2 tablet daily Unknown - 500mg 06/08/2017 Tablets Medications Administered in Office Medication SIG Qnty Indications Ordering Provider Date H1N1 Swine Flu Vaccine Anjel Reyes M.D. 01/07/2010 Injection Immunizations CPT Code Status Date Vaccine Lot # 35960 Given 11/16/2018 Shingrix Zoster (Shingles) Vaccine (HZV) Recomb,Subnit,Adjuvanted 57541 Given 09/21/2018 Influenza Vaccine Split Virus Preservative Free Im Use 05978 Given 09/21/2018 Influenza Vaccine Split Virus Preservative Free Im Use 90616 Given 06/06/2018 Shingrix Zoster (Shingles) Vaccine (HZV) Recomb,Subnit,Adjuvanted 64445 Given 07/13/2017 Influenza Vaccine Split Virus Preservative Free Im [id number] Use 91669 Given 10/09/2015 Influenza Vaccine Split Virus Preservative Free Im Use 99443 Given 06/18/2015 Prevnar 13 [id number] 60779 Given 10/28/2014 Influenza Vaccine Split Virus Preservative Free Im Use 13544 Given 01/24/2014 Adacel or Boostrix, TDaP [id number] 23406 Given 10/25/2013 Flu, Split Virus 3Yrs 70939 Given 10/15/2012 Flu, Split Virus 3Yrs [id number] 57001 Given 08/22/2011 Flu, Split Virus 3Yrs 55253 Given 01/13/2011 Zostavax [id number] 60181 Given 01/13/2011 Pneumococcal Immunization [id number] 70167 Given 09/20/2010 Flu, Split Virus 3Yrs 46924 Given 11/04/2009 Flu, Split Virus 3Yrs [id number] 21342 Given 07/02/2009 Td Immunization [id number] 39707 Given 11/06/2008 Flu, Split Virus 3Yrs 38467 53376 Given 10/09/2007 Flu, Split Virus 3Yrs [id number] 82858 Given 10/14/2005 Flu, Split Virus 3Yrs 67609 Given 11/24/1994 Td Immunization 50929 Given 11/24/1989 Flu, Split Virus 3Yrs Vital Signs Date Vital Result Comment 05/08/2019 1:24pm BP Systolic 126 mmHg BP Diastolic 72 mmHg 04/29/2019 4:13pm BP Systolic 120 mmHg BP Diastolic 80 mmHg Body Temperature 98.4 F 04/23/2019 1:54pm BP Systolic 102 mmHg BP Diastolic 60 mmHg Weight 184.00 lb w/shoes 04/09/2019 9:21am BP Systolic 104 mmHg BP Diastolic 60 mmHg Height 71.50 inches 5'11.50" Weight 180.00 lb BMI (Body Mass Index) 24.8 kg/m2 05/28/2018 6:26pm Respiratory Rate 16 /min Weight 176.00 lb 05/04/2018 2:49pm BP Systolic 108 mmHg BP Diastolic 70 mmHg 04/05/2018 1:56pm BP Systolic 110 mmHg BP Diastolic 68 mmHg Height 72 inches 6'0" with shoes Weight 180.00 lb with shoes BMI (Body Mass Index) 24.4 kg/m2 08/31/2017 10:20am BP Systolic 110 mmHg BP Diastolic 76 mmHg Weight 180.00 lb 07/13/2017 11:45am BP Systolic 114 mmHg Pt's 128/77 BP Diastolic 82 mmHg Pt's 128/77 Weight 178.00 lb 06/08/2017 2:37pm BP Systolic 116 mmHg BP Diastolic 68 mmHg Weight 182.00 lb 03/30/2017 10:01am BP Systolic 128 mmHg BP Diastolic 82 mmHg Heart Rate 70 /min rrr Respiratory Rate 16 /min Height 72.75 inches 6'0.75" Weight 186.00 lb BMI (Body Mass Index) 24.7 kg/m2 02/09/2017 11:16am BP Systolic 130 mmHg BP Diastolic 80 mmHg 01/26/2017 3:36pm BP Systolic 112 mmHg BP Diastolic 75 mmHg Heart Rate 67 /min rrr Height 72 inches 6'0" with sneakers Weight 183.00 lb with sneakers BMI (Body Mass Index) 24.8 kg/m2 02/15/2016 9:10am BP Systolic 118 mmHg BP Diastolic 76 mmHg Heart Rate 70 /min rrr Respiratory Rate 16 /min Height 71.75 inches 5'11.75" Weight 181.00 lb BMI (Body Mass Index) 24.7 kg/m2 07/10/2015 1:08pm BP Systolic 120 mmHg BP Diastolic 70 mmHg Weight 178.00 lb w/shoes 06/18/2015 3:07pm BP Systolic 118 mmHg BP Diastolic 70 mmHg Weight 175.00 lb with sneakers 06/03/2015 2:15pm BP Systolic 100 mmHg BP Diastolic 68 mmHg Weight 176.00 lb 02/12/2015 10:38am BP Systolic 118 mmHg BP Diastolic 80 mmHg Heart Rate 70 /min rrr Respiratory Rate 16 /min Height 71.25 inches 5'11.25" Weight 175.00 lb BMI (Body Mass Index) 24.2 kg/m2 07/03/2014 4:07pm BP Systolic 110 mmHg BP Diastolic 72 mmHg Body Temperature 98.0 F Weight 172.00 lb 04/05/2014 9:43am BP Systolic 100 mmHg BP Diastolic 60 mmHg Weight 177.00 lb 01/24/2014 2:24pm BP Systolic 120 mmHg BP Diastolic 76 mmHg Heart Rate 80 /min Respiratory Rate 16 /min Height 71.5 inches 5'11.50" Weight 180.00 lb BMI (Body Mass Index) 24.8 kg/m2 01/18/2013 2:07pm BP Systolic 112 mmHg BP Diastolic 74 mmHg Heart Rate 80 /min Respiratory Rate 16 /min Height 72 inches 6'0" Weight 178.00 lb BMI (Body Mass Index) 24.1 kg/m2 10/15/2012 3:22pm BP Systolic 128 mmHg BP Diastolic 78 mmHg 09/28/2012 1:14pm BP Systolic 126 mmHg BP Diastolic 70 mmHg Height 71.50 inches 5'11.50" Weight 173.00 lb BMI (Body Mass Index) 23.8 kg/m2 01/17/2012 1:15pm BP Systolic 120 mmHg BP Diastolic 90 mmHg Heart Rate 70 /min Respiratory Rate 16 /min Height 71.50 inches 5'11.50" Weight 186.00 lb BMI (Body Mass Index) 25.6 kg/m2 06/07/2011 2:45pm BP Systolic 100 mmHg BP Diastolic 70 mmHg Heart Rate 70 /min Respiratory Rate 16 /min Height 71.25 inches 5'11.25" Weight 187.00 lb BMI (Body Mass Index) 25.9 kg/m2 01/13/2011 10:50am BP Systolic 130 mmHg BP Diastolic 84 mmHg Heart Rate 80 /min Respiratory Rate 16 /min Height 71.75 inches 5'11.75" Weight 185.00 lb BMI (Body Mass Index) 25.3 kg/m2 Last Menstrual Period 0 07/19/2010 8:56am BP Systolic 118 mmHg BP Diastolic 76 mmHg Heart Rate 80 /min Height 71.75 inches 5'11.75" Weight 188.50 lb BMI (Body Mass Index) 25.7 kg/m2 02/11/2010 2:59pm BP Systolic 108 mmHg BP Diastolic 70 mmHg Weight 194.00 lb 01/07/2010 10:52am BP Systolic 110 mmHg BP Diastolic 70 mmHg Height 71.75 inches 5'11.75" Weight 194.00 lb BMI (Body Mass Index) 26.5 kg/m2 09/26/2009 9:18am BP Systolic 102 mmHg BP Diastolic 72 mmHg Weight 193.00 lb declined to take off sneakers 07/02/2009 9:06am BP Systolic 130 mmHg BP Diastolic 80 mmHg Heart Rate 80 /min Respiratory Rate 16 /min Weight 192.00 lb 01/01/2009 10:44am BP Systolic 116 mmHg BP Diastolic 86 mmHg Heart Rate 70 /min Respiratory Rate 16 /min Height 71 inches 5'11" Weight 197.00 lb BMI (Body Mass Index) 27.5 kg/m2 Last Menstrual Period 0 07/25/2008 5:05pm BP Systolic 120 mmHg BP Diastolic 82 mmHg Height 71.5 inches 5'11.50" Weight 180.00 lb BMI (Body Mass Index) 24.8 kg/m2 Last Menstrual Period 0 12/27/2007 10:55am BP Systolic 100 mmHg BP Diastolic 72 mmHg Heart Rate 70 /min Respiratory Rate 16 /min Height 71.5 inches 5'11.50" Weight 185.00 lb w/out shoes BMI (Body Mass Index) 25.4 kg/m2 06/07/2006 1:06pm BP Systolic 116 mmHg BP Diastolic 76 mmHg Height 73 inches 6'1" Weight 185.00 lb BMI (Body Mass Index) 24.4 kg/m2 02/20/2006 3:34pm BP Systolic 116 mmHg BP Diastolic 72 mmHg Height 72 inches 6'0" Weight 175.00 lb BMI (Body Mass Index) 23.7 kg/m2 10/14/2005 11:37am BP Systolic 120 mmHg BP Diastolic 70 mmHg Height 72 inches 6'0" Weight 173.00 lb BMI (Body Mass Index) 23.5 kg/m2 04/29/2005 4:50pm BP Systolic 112 mmHg BP Diastolic 64 mmHg Body Temperature 98.3 F Height 72 inches 6'0" Weight 174.00 lb BMI (Body Mass Index) 23.6 kg/m2 02/14/2005 2:42pm BP Systolic 116 mmHg BP Diastolic 68 mmHg Heart Rate 80 /min RRR Respiratory Rate 16 /min Easy Height 72 inches 6'0" Weight 176.00 lb BMI (Body Mass Index) 23.9 kg/m2 11/24/2004 11:17am BP Systolic 112 mmHg BP Diastolic 70 mmHg Heart Rate 80 /min Respiratory Rate 16 /min Easy Body Temperature 98.0 F Height 72 inches 6'0" Weight 174.00 lb BMI (Body Mass Index) 23.6 kg/m2 Results Test Date Facility Test Result H/L Range Note Lipid Profile 05/01/2019 [facility] Triglycerides 63 mg/dL 1, 2 (Trig/Chol/HDL) [phone] Cholesterol 127 mg/dL 3 HDL Cholesterol 26.7 mg/dL 4 LDL Cholesterol 88 mg/dL 5 CBC Auto Diff 05/01/2019 [facility] White Blood Count 8.7 10^3/uL N 3.5-10.8 [phone] Red Blood Count 4.82 10^6/uL N 4.18-5.48 Hemoglobin 14.4 g/dL N 14.0-18.0 Hematocrit 42 % N 42-52 Mean Corpuscular Volume 87 fL N 80-94 Mean Corpuscular Hemoglobin 30 pg N 27-31 Mean Corpuscular HGB Conc 34 g/dL N 31-36 Red Cell Distribution Width 13 % N 10-15 Platelet Count 375 10^3/uL N 150-450 Mean Platelet Volume 6.7 fL Low 7.4-10.4 Abs Neutrophils 6.0 10^3/uL N 1.5-7.7 Abs Lymphocytes 1.7 10^3/uL N 1.0-4.8 Abs Monocytes 1.0 10^3/uL High 0-0.8 Abs Eosinophils 0.1 10^3/uL N 0-0.6 Abs Basophils 0.0 10^3/uL N 0-0.2 Abs Nucleated RBC 0.0 10^3/uL Granulocyte % 68.8 % Lymphocyte % 19.0 % Monocyte % 11.3 % Eosinophil % 0.6 % Basophil % 0.3 % Nucleated Red Blood Cells % 0.2 Comp Metabolic Panel 05/01/2019 [facility] Sodium 136 mmol/L N 135- 145 [phone] Potassium 4.4 mmol/L N 3.5-5.0 Chloride 99 mmol/L Low 101-111 Co2 Carbon Dioxide 29 mmol/L N 22-32 Anion Gap 8 mmol/L N 2-11 Glucose 88 mg/dL N 70-100 Blood Urea Nitrogen 17 mg/dL N 6-24 Creatinine 0.78 mg/dL N 0.67-1.17 BUN/Creatinine Ratio 21.8 High 8-20 Calcium 9.3 mg/dL N 8.6-10.3 Total Protein 6.2 g/dL Low 6.4-8.9 Albumin 3.6 g/dL N 3.2-5.2 Globulin 2.6 g/dL N 2-4 Albumin/Globulin Ratio 1.4 N 1-3 Total Bilirubin 0.80 mg/dL N 0.2-1.0 Alkaline Phosphatase 55 U/L N 34-104 Alt 17 U/L N 7-52 Ast 15 U/L N 13-39 Egfr Non- 97.6 >60 Egfr 118.1 >60 6 Laboratory test 05/01/2019 [facility] TSH (Thyroid 2.17 mcIU/mL N 0.34-5.60 finding [phone] Stim Horm) Vitamin B12 997 pg/mL High 180-914 7 Magnesium 2.1 mg/dL N 1.9-2.7 Lyme Disease AB 05/01/2019 [facility] IgG Immunoblot Negative Negative Immunoblot WB [phone] IgG detected against None kDa IgM Immunoblot Negative Negative IgM detected against p41 kDa Lyme Disease Interpretation See Comment 8 Tick-Borne Panel PCR 05/01/2019 [facility] Babesia microti Negative Negative Blood [phone] PCR Babesia ducani Negative Negative Babesia divergens/Mo-1 Negative Negative 9 Anaplasma phagocytophilum Negative Negative Ehrlichia chaffeensis Negative Negative Ehrlichia ewingii/canis Negative Negative Ehrlichia muris eauclairensis Negative Negative 10 B. miyamotoi PCR, B Negative Negative 11 Laboratory test 05/01/2019 [facility] Erythrocyte Sed 50 mm/Hr High 0 -19 finding [phone] Rate C Reactive Protein 139.53 mg/L High <8.01 Xray 04/29/2019 [facility] X-Ray, Cervical no acute 12 Spine Min 4 process Views, Ap, Lat, & Both Oblique Laboratory test 02/27/2019 [facility] Magnesium 2.2 mg/dL N 1.9-2.7 finding [phone] Basic Metabolic 02/27/2019 [facility] Sodium 140 mmol/L N 135-145 Panel [phone] Potassium 4.4 mmol/L N 3.5-5.0 Chloride 105 mmol/L N 101-111 Co2 Carbon Dioxide 29 mmol/L N 22-32 Anion Gap 6 mmol/L N 2-11 Glucose 114 mg/dL High 70-100 Blood Urea Nitrogen 19 mg/dL N 6-24 Creatinine 0.94 mg/dL N 0.67-1.17 BUN/Creatinine Ratio 20.2 High 8-20 Calcium 9.6 mg/dL N 8.6-10.3 Egfr Non- 78.7 >60 Egfr 95.2 >60 13 CBC Auto Diff 02/27/2019 [facility] White Blood Count 6.3 10^3/uL N 3.5-10.8 [phone] Red Blood Count 5.37 10^6/uL N 4.18-5.48 Hemoglobin 16.1 g/dL N 14.0-18.0 Hematocrit 47 % High 36-46 Mean Corpuscular Volume 88 fL N 80-94 Mean Corpuscular Hemoglobin 30 pg N 27-31 Mean Corpuscular HGB Conc 34 g/dL N 31-36 Red Cell Distribution Width 14 % N 10.5-15 Platelet Count 233 10^3/uL N 150-450 Mean Platelet Volume 7.1 fL Low 7.4-10.4 Abs Neutrophils 3.4 10^3/uL N 1.5-7.7 Abs Lymphocytes 2.2 10^3/uL N 1.0-4.8 Abs Monocytes 0.5 10^3/uL N 0-0.8 Abs Eosinophils 0.1 10^3/uL N 0-0.6 Abs Basophils 0 10^3/uL N 0-0.2 Abs Nucleated RBC 0 10^3/uL Granulocyte % 54.5 % Lymphocyte % 35.3 % Monocyte % 7.8 % Eosinophil % 1.9 % Basophil % 0.5 % Nucleated Red Blood Cells % 0.2 CBC Auto Diff 02/03/2019 [facility] White Blood Count 7.8 10^3/uL N 3.5-10.8 [phone] Red Blood Count 5.14 10^6/uL N 4.18-5.48 Hemoglobin 15.3 g/dL N 14.0-18.0 Hematocrit 45 % N 36-46 Mean Corpuscular Volume 87 fL N 80-94 Mean Corpuscular Hemoglobin 30 pg N 27-31 Mean Corpuscular HGB Conc 34 g/dL N 31-36 Red Cell Distribution Width 14 % N 10.5-15 Platelet Count 242 10^3/uL N 150-450 Mean Platelet Volume 7.0 fL Low 7.4-10.4 Abs Neutrophils 5.5 10^3/uL N 1.5-7.7 Abs Lymphocytes 1.6 10^3/uL N 1.0-4.8 Abs Monocytes 0.7 10^3/uL N 0-0.8 Abs Eosinophils 0.1 10^3/uL N 0-0.6 Abs Basophils 0 10^3/uL N 0-0.2 Abs Nucleated RBC 0 10^3/uL Granulocyte % 69.7 % Lymphocyte % 20.0 % Monocyte % 8.7 % Eosinophil % 1.2 % Basophil % 0.4 % Nucleated Red Blood Cells % 0 Comp Metabolic Panel 02/03/2019 [facility] Sodium 137 mmol/L N 135- 145 [phone] Potassium 4.2 mmol/L N 3.5-5.0 Chloride 106 mmol/L N 101-111 Co2 Carbon Dioxide 24 mmol/L N 22-32 Anion Gap 7 mmol/L N 2-11 Glucose 118 mg/dL High 70-100 Blood Urea Nitrogen 20 mg/dL N 6-24 Creatinine 0.82 mg/dL N 0.67-1.17 BUN/Creatinine Ratio 24.4 High 8-20 Calcium 9.3 mg/dL N 8.6-10.3 Total Protein 6.3 g/dL Low 6.4-8.9 Albumin 3.9 g/dL N 3.2-5.2 Globulin 2.4 g/dL N 2-4 Albumin/Globulin Ratio 1.6 N 1-3 Total Bilirubin 0.30 mg/dL N 0.2-1.0 Alkaline Phosphatase 38 U/L N 34-104 Alt 19 U/L N 7-52 Ast 18 U/L N 13-39 Egfr Non- 92.1 >60 Egfr 111.4 >60 14 Laboratory test 02/03/2019 [facility] TSH (Thyroid 4.16 mcIU/mL N 0.34-5.60 finding [phone] Stim Horm) Basic Metabolic 06/12/2018 [facility] Sodium 138 mmol/L N 135-145 Panel [phone] Potassium 4.2 mmol/L N 3.5-5.0 Chloride 102 mmol/L N 101-111 Co2 Carbon Dioxide 28 mmol/L N 22-32 Anion Gap 8 mmol/L N 2-11 Glucose 88 mg/dL N 70-100 Blood Urea Nitrogen 19 mg/dL N 6-24 Creatinine 0.95 mg/dL N 0.67-1.17 BUN/Creatinine Ratio 20.0 N 8-20 Calcium 9.4 mg/dL N 8.6-10.3 Egfr Non- 77.7 >60 Egfr 94.0 >60 15 Laboratory test 05/04/2018 [facility] Surgical SEE RESULT 16 finding [phone] Pathology BELOW Laboratory test 11/06/2017 [facility] Inr/Protime 1.06 High 0.77- 17 finding [phone] 1.02 Laboratory test 08/22/2017 [facility] Inr/Protime 1.71 High 0.89- 18 , 19 finding [phone] 1.11 Inr/Protime 08/15/2017 [facility] Inr 1.13 High 0.89- [phone] 1.11 Inr/Protime 08/07/2017 [facility] Inr 2.88 High 0.89- [phone] 1.11 Inr/Protime 07/31/2017 [facility] Inr 1.93 High 0.89- [phone] 1.11 Inr/Protime 07/17/2017 [facility] Inr 2.07 High 0.89- [phone] 1.11 Inr/Protime 07/10/2017 [facility] Inr 2.22 High 0.89- [phone] 1.11 Inr/Protime 07/07/2017 [facility] Inr 1.98 High 0.89- [phone] 1.11 Inr/Protime 07/03/2017 [facility] Inr 1.68 High 0.89- [phone] 1.11 CBC Auto Diff 06/26/2017 [facility] White Blood 8.1 10^3/uL N 3.5-2 [phone] Count 0.8 Red Blood Count 4.84 10^6/uL N 4.0-5.4 Hemoglobin 13.9 g/dL Low 14.0-18.0 Hematocrit 42 % N 42-52 Mean Corpuscular Volume 87 fL N 80-94 Mean Corpuscular Hemoglobin 29 pg N 27-31 Mean Corpuscular HGB Conc 33 g/dL N 31-36 Red Cell Distribution Width 15 % N 10.5-15 Platelet Count 291 10^3/uL N 150-450 Mean Platelet Volume 7 um3 Low 7.4-10.4 Abs Neutrophils 5.0 10^3/uL N 1.5-7.7 Abs Lymphocytes 2.2 10^3/uL N 1.0-4.8 Abs Monocytes 0.7 10^3/uL N 0-0.8 Abs Eosinophils 0.2 10^3/uL N 0-0.6 Abs Basophils 0.1 10^3/uL N 0-0.2 Abs Nucleated RBC 0 10^3/uL N Granulocyte % 61.6 % N 38-83 Lymphocyte % 27.1 % N 25-47 Monocyte % 8.1 % N 1-9 Eosinophil % 2.3 % N 0-6 Basophil % 0.9 % N 0-2 Nucleated Red Blood Cells % 0 N Laboratory test 06/26/2017 [facility] TSH (Thyroid 1.88 mcIU/mL N 0.34-5.60 finding [phone] Stim Horm) Comp Metabolic 06/26/2017 [facility] Sodium 139 mmol/L N 133-145 Panel [phone] Potassium 4.9 mmol/L N 3.5-5.0 Chloride 106 mmol/L N 101-111 Co2 Carbon Dioxide 25 mmol/L N 22-32 Anion Gap 8 mmol/L N 2-11 Glucose 99 mg/dL N 70-100 Blood Urea Nitrogen 20 mg/dL N 6-24 Creatinine 0.85 mg/dL N 0.67-1.17 BUN/Creatinine Ratio 23.5 High 8-20 Calcium 9.5 mg/dL N 8.6-10.3 Total Protein 6.2 g/dL Low 6.4-8.9 Albumin 4.0 g/dL N 3.2-5.2 Globulin 2.2 g/dL N 2-4 Albumin/Globulin Ratio 1.8 N 1-3 Total Bilirubin 0.30 mg/dL N 0.2-1.0 Alkaline Phosphatase 60 U/L N 34-104 Alt 17 U/L N 7-52 Ast 21 U/L N 13-39 Egfr Non- 88.6 N >60 Egfr 113.9 N >60 20 Inr/Protime 06/26/2017 [facility] Inr 1.73 High 0.89-1.11 [phone] Inr/Protime 06/20/2017 [facility] Inr 1.77 High 0.89-1.11 [phone] Inr/Protime 06/13/2017 [facility] Inr 1.82 High 0.89-1.11 [phone] Inr/Protime 06/09/2017 [facility] Inr 1.93 High 0.89-1.11 21 [phone] Laboratory test finding 06/07/2017 [facility] Inr/Protime 2.71 High 0.89-1.11 [phone] Urine Micro Inhouse 03/30/2017 In House Ua WBC 2-3 22 Ua RBC 6 Ua Casts - Ua Epi 4-5 Ua Other - Ua Glucose - Ua Bilirubin - Ua Ketones - Ua Specific [place] 1.020 Ua Blood - Ua PH 5.0 Ua Protein - Ua Urobilinogen - Ua Nitrite - Ua Leukocytes - Laboratory test 03/24/2017 [facility] TSH (Thyroid 2.70 mcIU/mL N 0.34-5.60 finding [phone] Stim Horm) CBC Auto Diff 02/13/2017 [facility] White Blood 6.7 10^3/uL N 3.5- 10.8 [phone] Count Red Blood Count 5.58 10^6/uL High 4.0-5.4 Hemoglobin 16.3 g/dL N 14.0-18.0 Hematocrit 49 % N 42-52 Mean Corpuscular Volume 87 fL N 80-94 Mean Corpuscular Hemoglobin 29 pg N 27-31 Mean Corpuscular HGB Conc 34 g/dL N 31-36 Red Cell Distribution Width 13 % N 10.5-15 Platelet Count 229 10^3/uL N 150-450 Mean Platelet Volume 7 um3 Low 7.4-10.4 Abs Neutrophils 3.7 10^3/uL N 1.5-7.7 Abs Lymphocytes 2.4 10^3/uL N 1.0-4.8 Abs Monocytes 0.5 10^3/uL N 0-0.8 Abs Eosinophils 0.1 10^3/uL N 0-0.6 Abs Basophils 0 10^3/uL N 0-0.2 Abs Nucleated RBC 0.01 10^3/uL N Granulocyte % 55.4 % N 38-83 Lymphocyte % 35.9 % N 25-47 Monocyte % 6.8 % N 1-9 Eosinophil % 1.6 % N 0-6 Basophil % 0.3 % N 0-2 Nucleated Red Blood Cells % 0.2 N Comp Metabolic Panel 02/13/2017 [facility] Sodium 139 mmol/L N 133- 145 [phone] Potassium 4.0 mmol/L N 3.5-5.0 Chloride 106 mmol/L N 101-111 Co2 Carbon Dioxide 27 mmol/L N 22-32 Anion Gap 6 mmol/L N 2-11 Glucose 100 mg/dL N 70-100 Blood Urea Nitrogen 15 mg/dL N 6-24 Creatinine 0.85 mg/dL N 0.67-1.17 BUN/Creatinine Ratio 17.6 N 8-20 Calcium 9.4 mg/dL N 8.6-10.3 Total Protein 6.4 g/dL N 6.4-8.9 Albumin 4.1 g/dL N 3.2-5.2 Globulin 2.3 g/dL N 2-4 Albumin/Globulin Ratio 1.8 N 1-3 Total Bilirubin 0.70 mg/dL N 0.2-1.0 Alkaline Phosphatase 30 U/L Low 34-104 Alt 19 U/L N 7-52 Ast 21 U/L N 13-39 Egfr Non- 88.9 N >60 Egfr 114.3 N >60 23 Lipid Profile (Trig/Chol/HDL) 02/13/2017 [facility] Triglycerides 96 mg /dL N 24 [phone] Cholesterol 166 mg/dL N 25 HDL Cholesterol 42.6 mg/dL N 26 LDL Cholesterol 104 mg/dL N 27 Laboratory test finding 02/13/2017 [facility] Magnesium 2.0 mg/dL N 1.9-2.7 28 [phone] Urine Micro Inhouse 02/12/2015 In House Ua WBC 0-1 Ua RBC 0-3 Ua Casts - Ua Epi 0-1 Ua Other crystals, sediment Ua Glucose - Ua Bilirubin - Ua Ketones - Ua Specific [place] 1.020 Ua Blood - Ua PH 6.0 Ua Protein tr Ua Urobilinogen - Ua Nitrite - Ua Leukocytes - Basic Metabolic Panel 07/08/2014 [facility] Sodium 137 mmol/L N 133- 145 [phone] Potassium 4.2 mmol/L N 3.7-5.6 Chloride 106 mmol/L N 101-111 Co2 Carbon Dioxide 24 mmol/L N 22-32 Anion Gap 7 mmol/L N 2-11 Glucose 130 mg/dL High 70-100 Blood Urea Nitrogen 19 mg/dL N 6-24 Creatinine 0.88 mg/dL N 0.67-1.17 BUN/Creatinine Ratio 21.6 High 8-20 Calcium 9.4 mg/dL N 8.6-10.3 Egfr Non- 85.9 N >60 Egfr 110.4 N >60 29 Urine Micro Inhouse 01/24/2014 In House Ua WBC - Ua RBC - Ua Casts - Ua Epi - Ua Other - Ua Glucose - Ua Bilirubin - Ua Ketones - Ua Specific [place] 1.020 Ua Blood - Ua PH 5.0 Ua Protein - Ua Urobilinogen - Ua Nitrite - Ua Leukocytes - Lipid Profile 01/30/2013 [facility] Triglycerides 104 mg/dL 40-200 (Trig/Chol/HDL) [phone] Cholesterol 186 mg/dL Less than 200 HDL Cholesterol 49 mg/dL 40-60 30 Cholesterol/HDL Ratio 3.8 Average 1-4.44 LDL Cholesterol 116.2 mg/dL High Less Than 100 31 Laboratory test 01/30/2013 [facility] Hepatitis C Nonreactive Nonreactive 32 finding [phone] Antibody Urine Micro 01/18/2013 In House Ua WBC - Inhouse Ua RBC - Ua Casts - Ua Epi - Ua Other - Ua Glucose - Ua Bilirubin - Ua Ketones - Ua Specific [place] 1.025 Ua Blood - Ua PH 6.0 Ua Protein - Ua Urobilinogen - Ua Nitrite - Ua Leukocytes - CBC Auto Diff 10/01/2012 [facility] White Blood Count 4.7 10^3/uL Low 4.8-10.8 [phone] Red Blood Count 5.14 10^6/uL 4.0-5.4 Hemoglobin 13.2 g/dL Low 14.0-18.0 Hematocrit 41 % Low 42-52 Mean Corpuscular Volume 80 fL 80-94 Mean Corpuscular Hemoglobin 26 pg Low 27-31 Mean Corpuscular HGB Conc 32 g/dL 31-36 Red Cell Distribution Width 18 % High 10.5-15 Platelet Count 238 10^3/uL 150-450 Mean Platelet Volume 8 um3 7.4-10.4 Abs Neutrophils 2.6 10^3/uL 1.5-7.7 Abs Lymphocytes 1.6 10^3/uL 1.0-4.8 Abs Monocytes 0.4 10^3/uL 0-0.8 Abs Eosinophils 0.1 10^3/uL 0-0.6 Abs Basophils 0 10^3/uL 0-0.2 Abs Nucleated RBC 0 10^3/uL Granulocyte % 55.5 % 38-83 Lymphocyte % 33.6 % 25-47 Monocyte % 7.8 % 1-9 Eosinophil % 2.3 % 0-6 Basophil % 0.8 % 0-2 Nucleated Red Blood Cells % 0 Comp Metabolic Panel 10/01/2012 [facility] Sodium 141 mmol/L 133- 145 [phone] Potassium 4.1 mmol/L 3.5-5.0 Chloride 107 mmol/L 101-111 Co2 Carbon Dioxide 29.0 mmol/L 22-32 Anion Gap 5.0 mmol/L 2-11 Glucose 91 mg/dL 70-100 Blood Urea Nitrogen 17 mg/dL 6-24 Creatinine 0.90 mg/dL 0.50-1.40 BUN/Creatinine Ratio 18.9 8-20 Calcium 9.5 mg/dL 8.1-9.9 Total Protein 6.1 GM/DL Low 6.2-8.1 Albumin 3.8 GM/DL 3.2-5.2 Globulin 2.3 GM/DL 2-4 Albumin/Globulin Ratio 1.7 1-3 Total Bilirubin 0.5 mg/dL 0.1-1.0 33 Alkaline Phosphatase 34 U/L 30-110 Alt 22 U/L 14-54 Ast 28 U/L 12-42 Egfr Non- 84.2 >60 Egfr 108.2 >60 34 Laboratory test 10/01/2012 [facility] Erythrocyte Sed 7 MM/HR 0-40 35 finding [phone] Rate Heavy Metal Blool 10/01/2012 [facility] Arsenic Not Detected 36 [phone] Lead 1 37 Mercury <1 [address] [place] [address] Guardian First Name Melonie Guardian Last Name Engst Venous/Capillary Heavy Metals Venous Patient Race Iron & Iron Binding Capacity 10/01/2012 [facility] Iron 60 UG/ML 45- 182 [phone] Unsaturated Iron Binding 389 g/dL Total Iron Binding Capacity 449 g/dL 250-450 Transferrin 321.0 % Iron Saturation 13 % Low 15-55 RPR 10/01/2012 [facility] Syphilis IgG Nonreactive Nonreactive 40 [phone] RPR TNP Nonreactive RPR Titer TNP Pediatric/Maternal NO Laboratory test 10/01/2012 [facility] TSH (Thyroid 1.74 MIU/ML 0.34- 5.60 finding [phone] Stimulating Horm) Vitamin B12 401 pg/mL 180-914 Testosterone Free & 10/01/2012 [facility] Free Testosterone 9.5 ng/dL 9-30 Total [phone] ng/dl Testosterone 397 ng/dL 240-950 41 Cell Morphology 10/01/2012 [facility] RBC Morphology Normal Normal [phone] Urine Micro Inhouse 01/13/2011 In House Ua WBC 0-2 Ua RBC - Ua Casts - Ua Epi 0-1 Ua Other - Ua Glucose - Ua Bilirubin - Ua Ketones - Ua Specific [place] 1.020 Ua Blood - Ua PH 5.0 Ua Protein - Ua Urobilinogen - Ua Nitrite - Ua Leukocytes - Laboratory test 02/11/2010 [facility] Surgical <SEE 42 finding [phone] Pathology NOTE> Comp Metabolic 01/07/2010 [facility] Sodium 142 mmol/L 135- Panel [phone] Potassium 4.6 mmol/L 3.5-5.0 Chloride 105 mmol/L 101-111 Co2 (Carbon Dioxide) 27.0 mmol/L 22-32 Anion Gap 10.0 mmol/L 2-11 43 Glucose 83 mg/dL 70-100 44 BUN 16 mg/dL 6-24 Creatinine 1.00 mg/dL 0.50-1.40 One Over Creatinine 1.00 BUN/Creatinine Ratio 16.0 8-20 Calcium 9.5 mg/dL 8.1-9.9 45 Total Protein 6.3 GM/DL 6.2-8.1 Albumin 4.1 GM/DL 3.2-5.2 Globulin 2.2 GM/DL 2-4 Albumin/Globulin Ratio 1.9 1-3 Bilirubin Total 0.5 mg/dL 0.4-1.5 46 Alkaline Phosphatase 37 U/L Low 39-117 Alt (SGPT) 33 U/L 17-63 Ast (Sgot) 28 U/L 12-42 eGFR Non- 80.0 > 60 eGFR 96.7 > 60 47 Laboratory test 01/07/2010 In House Occult Blood - neg x3 finding Stool CBC With Electronic 01/07/2010 [facility] White Blood 6.1 CUMM 4.8- 10.8 Diff [phone] Count Red Cell Count 5.06 CUMM 4.6-6.2 Hemoglobin 14.7 g/dL 14.0-18.0 Hematocrit 43 % 42-52 Mean Corpuscular Volume 84 um3 80-94 Mean Corpuscular Hemoglob 29 pg 27-31 Mean Corpuscular HGB Cone 35 g/dL 32-36 Redcell Distribution WDTH 13 % 10.5-15 Platelet Count 317 CUMM 150-450 Mean Platelet Volume 6.5 um3 Low 7.4-10.4 Gran % 58.7 % 38-83 Lymph % 31.0 % 25-47 Mononuclear % 7.9 % 1-9 Eosinophil % 1.9 % 0-6 Basophil % 0.5 % 0-2 Abs Lymphs 1.9 1.0-4.8 Abs Mononuclear 0.5 0-0.8 Absolute Neutrophil Count 3.6 1.5-7.7 Abs Eosinophils 0.1 0-0.6 Abs Basophils 0 0-0.2 Laboratory test 09/26/2009 [facility] Surgical <SEE 48 finding [phone] Pathology NOTE> Urine Micro 01/01/2009 In House Urine - Inhouse Microscopic Inhouse Ua Inhouse 01/01/2009 In House Ua Glucose - Ua Bilirubin - Ua Ketones - Ua Specific [place] 1.030 Ua Blood - Ua PH 5.0 Ua Protein - Ua Urobilinogen - Ua Nitrite - Ua Leukocytes - Comp Metabolic Panel 01/01/2009 [facility] Sodium 139 mmol/L 135- 145 [phone] Potassium 4.3 mmol/L 3.5-5.0 Chloride 107 mmol/L 101-111 Co2 (Carbon Dioxide) 27.0 mmol/L 22-32 Anion Gap 5.0 mmol/L 2-11 49 Glucose 88 mg/dL 70-100 50 BUN 12 mg/dL 6-24 Creatinine 0.90 mg/dL 0.50-1.40 One Over Creatinine 1.10 BUN/Creatinine Ratio 13.3 8-20 Calcium 9.7 mg/dL 8.1-9.9 51 Total Protein 6.4 GM/DL 6.2-8.1 Albumin 4.1 GM/DL 3.2-5.2 Globulin 2.3 GM/DL 2-4 Albumin/Globulin Ratio 1.8 1-3 Bilirubin Total 0.8 mg/dL 0.4-1.5 Alkaline Phosphatase 38 U/L Low 39-117 Alt (SGPT) 55 U/L 17-63 Ast (Sgot) 40 U/L 12-42 CBC With Electronic 01/01/2009 [facility] White Blood 7.0 CUMM 4.8- 10.8 Diff [phone] Count Red Cell Count 5.49 CUMM 4.6-6.2 Hemoglobin 15.9 g/dL 14.0-18.0 Hematocrit 47 % 42-52 Mean Corpuscular Volume 85 um3 80-94 Mean Corpuscular Hemoglob 29 pg 27-31 Mean Corpuscular HGB Cone 34 g/dL 32-36 Redcell Distribution WDTH 13 % 10.5-15 Platelet Count 298 CUMM 150-450 Mean Platelet Volume 6.6 um3 Low 7.4-10.4 Gran % 64.6 % 38-83 Lymph % 25.0 % 25-47 Mononuclear % 8.4 % 1-9 Eosinophil % 1.8 % 0-6 Basophil % 0.2 % 0-2 Abs Lymphs 1.8 1.0-4.8 Abs Mononuclear 0.6 0-0.8 Absolute Neutrophil Count 4.5 1.5-7.7 Abs Eosinophils 0.1 0-0.6 Abs Basophils 0 0-0.2 Lipid Profile 12/28/2007 [facility] Cholesterol/HDL 4.02 1-4.97 (Trig/Chol/HDL) [phone] Ratio AVERAGE Cholesterol 181 mg/dL Less Than 200 52 Triglyceride 53 mg/dL 40-200 High Density Lipoprotein 45 mg/dL 40-60 Low Density Lipoprotein 125 mg/dL High Less Than 100 53 Laboratory test 12/28/2007 [facility] PSA Screening 1.03 NG/ML 0-4 54 finding [phone] CBC With Manual 12/28/2007 [facility] White Blood 5.4 CUMM 4.8-10.8 Diff [phone] Count Absolute Neutrophil Count 3.7 Anisocytosis SLIGHT Basophil 1 % 0-2 Hematocrit 46 % 42-52 Hemoglobin 15.5 g/dL 14.0-18.0 Eosenophil 1 % 0-6 Lymphocyte 24 % 5-47 Mean Corpuscular HGB Cone 34 g/dL 32-36 Mean Corpuscular Hemoglob 29 pg 27-31 Mean Corpuscular Volume 84 um3 80-94 Monocyte 5 % 0-13 Mean Platelet Volume 7.0 um3 Low 7.4-10.4 Platelet Count 288 CUMM 150-450 Polysegmented Neutrophil 69 % 38-83 Red Cell Count 5.42 CUMM 4.6-6.2 Redcell Distribution WDTH 15 % 10.5-15 Comp Metabolic Panel 12/28/2007 [facility] One Over Creatinine 0.90 [phone] Anion Gap 7.0 mmol/L 2-11 55 Albumin/Globulin Ratio 1.7 1-3 Albumin 4.0 GM/DL 3.2-5.2 Alkaline Phosphatase 36 U/L Low 39-117 Alt (SGPT) 23 U/L 17-63 Ast (Sgot) 23 U/L 12-42 BUN 16 mg/dL 6-24 Calcium 9.4 mg/dL 8.7-10.2 Chloride 108 mmol/L 101-111 Co2 (Carbon Dioxide) 27.0 mmol/L 22-32 Globulin 2.3 GM/DL 2-4 Glucose 97 mg/dL 70-105 Potassium 4.2 mmol/L 3.5-5.0 Sodium 142 mmol/L 135-145 Bilirubin Total 0.6 mg/dL 0.4-1.5 Total Protein 6.3 GM/DL 6.2-8.1 BUN/Creatinine Ratio 14.5 8-20 Creatinine 1.1 mg/dL 0.5-1.4 Laboratory test 06/07/2006 [facility] Crystals Fluid NONE SEEN 56 finding [phone] CBC With Electronic 02/21/2006 [facility] White Blood 5.8 CUMM 4.8- 10.8 Diff [phone] Count Abs Basophils 0 0-0.2 Abs Eosinophils 0.1 0-0.6 Absolute Neutrophil Count 3.3 1.5-7.7 Abs Lymphs 1.8 1.0-4.8 Abs Mononuclear 0.4 0-0.8 Basophil % 0.4 % 0-2 Hematocrit 49 % 42-52 Hemoglobin 16.7 g/dL 14.0-18.0 Eosinophil % 2.5 % 0-6 Gran % 57.7 % 38-83 Lymph % 31.9 % 20-45 Mean Corpuscular HGB Cone 34 g/dL 32-36 Mean Corpuscular Hemoglob 29 pg 27-31 Mean Corpuscular Volume 85 um3 80-94 Mean Platelet Volume 7.0 um3 Low 7.4-10.4 Mononuclear % 7.5 % 1-9 Platelet Count 301 CUMM 150-450 Red Cell Count 5.68 CUMM 4.6-6.2 Redcell Distribution WDTH 16 % High 10.5-15 Comp Metabolic Panel 02/21/2006 [facility] One Over Creatinine 1.00 [phone] Anion Gap 8.0 mmol/L 2-11 57 Albumin/Globulin Ratio 1.5 1-3 Albumin 4.2 GM/DL 3.2-5.2 Alkaline Phosphatase 39 U/L 39-117 Alt (SGPT) 27 U/L 17-63 Ast (Sgot) 31 U/L 12-42 BUN 14 mg/dL 6-24 Calcium 9.7 mg/dL 8.7-10.2 Chloride 107 mmol/L 101-111 Co2 (Carbon Dioxide) 25.0 mmol/L 22-32 Globulin 2.8 GM/DL 2-4 Glucose 71 mg/dL 70-105 Potassium 3.7 mmol/L 3.5-5.0 Sodium 140 mmol/L 135-145 Bilirubin Total 0.6 mg/dL 0.4-1.5 Total Protein 7.0 GM/DL 6.2-8.1 BUN/Creatinine Ratio 14.0 8-20 Creatinine 1.0 mg/dL 0.5-1.4 Laboratory test 02/21/2006 [facility] Erythrocyte Sed Rate 1 MM/HR 0 -20 finding [phone] TSH 2.17 MIU/ML 0.34-5.60 Ua Inhouse 02/14/2005 In House Ua Glucose NEG Ua Bilirubin NEG Ua Ketones NEG Ua Specific [place] 1.030 Ua Blood NEG Ua PH 5.0 Ua Protein NEG Ua Urobilinogen NEG Ua Nitrite NEG Ua Leukocytes NEG Laboratory test 02/14/2005 In House Urine Microscopic NEG finding Inhouse Laboratory test 02/14/2005 [facility] PSA Screening 1.0 NG/ML 0-4 58 finding [phone] 1 FASTING 12 HOUR 2 Desirable: <150 Borderline High: 150-199 High: 200-499 Very High: >500 3 Desirable: <200 Borderline High: 200-239 High: >239 4 Low: <40 Desirable: 40-60 High: >60 5 Desirable: <100 Near Optimal: 100-129 Borderline High: 130-159 High: 160-189 Very High: >189 6 Because ethnic data is not always readily [...] 15-29 5 Kidney failure <15 (or dialysis) 7 Normal Range 180 to 914 Indeterminate Range 145 to 180 Deficient Range <145 8 Specific serologic response to B. burgdorferi infection is not detected, but cannot rule out early infection during which low or undetectable antibody levels to B. burgdorferi may be present. If clinically indicated, a new serum specimen should be submitted in 7-14 days. ADDITIONAL INFORMATION Per CDC criteria, the Lyme IgG Immunoblot is interpreted as positive if IgG-class antibodies are detected to >=5 B. burgdorferi proteins, and the Lyme IgM Immunoblot is interpreted as positive if IgM-class antibodies are detected to >=2 B. burgdorferi proteins. Immunoblot patterns not meeting these criteria should not be interpreted as positive. Epitopes from certain B. burgdorferi proteins (e.g., p41) are conserved across other bacteria, which may lead to the detection of IgM- and/or IgG-class antibodies on the Lyme disease immunoblots in patients without Lyme disease. Immunoblot should only be ordered on specimens that are positive or equivocal by a FDA-licensed Lyme disease antibody screening test (e.g., EIA). Results of the Lyme IgM immunoblot should not be considered in patients with >=30 days of symptoms. Test Performed by: [facility] [address] [place] [address] 9 ADDITIONAL INFORMATION This test was developed and its performance characteristics determined by [facility] in a manner consistent with CLIA requirements. This test has not been cleared or approved by the U.S. Food and Drug Administration. 10 ADDITIONAL INFORMATION This test was developed and its performance characteristics determined by [facility] in a manner consistent with CLIA requirements. This test has not been cleared or approved by the U.S. Food and Drug Administration. 11 ADDITIONAL INFORMATION This test was developed and its performance characteristics determined by [facility] in a manner consistent with CLIA requirements. This test has not been cleared or approved by the U.S. Food and Drug Administration. Test Performed by: [address] [address] 12 reduced disc height, good cervical lordosis, degenerative disc disease suggested. 13 Because ethnic data is not always readily [...] 15-29 5 Kidney failure <15 (or dialysis) 14 Because ethnic data is not always readily [...] 15-29 5 Kidney failure <15 (or dialysis) 15 Because ethnic data is not always readily [...] 15-29 5 Kidney failure <15 (or dialysis) 16 SEE RESULT BELOW Name: SABA VELIZ : [address]: Edi Ferreira DO Acct: [id number] Unit: [id number] AGE: 72 Location: [facility] Re05/04/18 SEX: M Status: REG REF SPEC: [id number] JAYCEE: 05/04/18-1725 [facility] DR: Edi Ferreira DO REQ: [id number] RECD: 05/07/18-1313 STATUS: SOUT _ ORDERED: LEVEL 4 COMMENTS: [id number] FINAL DIAGNOSIS Skin, right arm, excision: -- Proliferating pilar tumor. PRE-OPERATIVE DIAGNOSIS L72.3 sebaceous cyst, 3 x 2 cm GROSS DESCRIPTION The specimen is received in formalin labeled, Skin/Cyst Right Arm, and consists of a 1.9 x 1.8 x 0.9 cm translucent dove rubbery soft tissue fragment with a small amount of adherent dove-zapata fibro membranous tissue. The cut surface is translucent dove-yellow and gelatinous. The specimen is inked, serially sectioned and inbound sales representative sections are submitted in one cassette. Signed by and Reported on: Meeta Patterson MD 05/08/18 1456 END OF REPORT DEPARTMENT OF PATHOLOGY, [address] [place] [address] Mil Quintanilla M.D. Director [facility] # [id number] 17 Please note the change in INR reference range effective 17. 18 ORDERED:06/08/17 EXPIRES: 12/09/17 19 ORDERED:06/08/17 EXPIRES: 12/09/17 20 Because ethnic data is not always readily [...] 15-29 5 Kidney failure <15 (or dialysis) 21 Make this a standing order. 22 void, clear, yellow 23 Because ethnic data is not always readily [...] 15-29 5 Kidney failure <15 (or dialysis) 24 Desirable <150 Borderline high 150-199 High 200-499 Very High >500 25 Desirable <200 Borderline high 200-239 High >239 26 Low <40 Desirable: 40-60 High: >60 27 Desirable: <100 mg/dL Near Optimal: 100-129 mg/dL Borderline High: 130-159 mg/dL High: 160-189 mg/dL Very High: >189 mg/dL 28 FASTING 29 Because ethnic data is not always readily [...] 15-29 5 Kidney failure <15 (or dialysis) 30 HDL Interpretation: Undesirable: High Risk: Less than 40 MG/DL Desirable: Low Risk: Greater than 60 MG/DL 31 LDL Interpretation: Low Risk Optimal Level: LDL Less than 100 MG/DL Near or Above Optimal: LDL 100-129 MG/DL Borderline High Risk: LDL 130-159 MG/DL High Risk: LDL 160-189 MG/DL Very High Risk: LDL Greater than 189 MG/DL 32 PT IS FASTING 33 A metabolite of Naproxen, O-desmethylnaproxen, has been shown to interfere with the Jendrassik-Montauk method for measuring total bilirubin. Samples from patients who have taken Naproxen have shown spurious elevation in total bilirubin levels. 34 Because ethnic data is not always readily [...] 15-29 5 Kidney failure <15 (or dialysis) 35 @10/01/12 1355: Cell Morphology added. RFLXG=RBC MORPH. 36 Reference 0-12 37 Reference 0-9 38 Reference 0-9 39 Reference 0.0-4.9 40 Warning: A positive result is not useful for establishing a diagnosis of syphilis. In most situations, such a result may reflect a prior treated infection; a negative result can exclude a diagnosis of syphilis except for incubating or early primary disease. 41 Test Performed by: [address] [address] Ancillary Services Manager: Benito Gomez III, M.D. R 42 ---- RUN DATE: 02/15/10 [facility] NMI LIVE PAGE 1 RUN TIME: 1158 Specimen Inquiry RUN USER: INTERFACE -- Name: SABA VELIZ Status: REG REF Re02/11/10 Age/Sex: 64/M Unit#: [id number] Location: [facility] : [birth year] -- Specimen: [id number] SOUChristine Spec Date: 02/11/[address]: Anjel martinez MD Spec Type: SURGICAL P Received: 02/12/10-1013 Copies to: SPECIMEN RIGHT SHOULDER LESION HISTORY PRE-OP DIAGNOSIS: Neoplasm uncertain CLINICAL INFORMATION: Right shoulder, present for one year, more red/rais ed recently, 2 cm. diameter ovoid, greasy, scaly macule. Slightly raised, removed with curettage GROSS DESCRIPTION Specimen received in formalin labelled Saba Veliz, Skin Right Shoulder, and consists of multiple, irregular, keratotic fragments measuring 1.2 x 0.3 x 0.2 cm. Submitted entirely, one cassette. DIAGNOSIS Skin, right shoulder, shave biopsy: A. Pigmented hyperparakeratotic actinic keratosis. B. No melanocytic neoplasia identified. C. Lesion is transected along its base (see comment). COMMENT This is a superficial shave biopsy which does not include the dermal-epidermal interface along much of its length. The epidermis demonstrates dysplastic features with overlying hyperparakeratosis and squamous pigment deposition. A small fragment of tissue demonstrating dermis also demonstrates post inflammatory hyperpigmentation. I see no evidence of a neoplastic melanocytic process. The deep margin of the specimen cannot be adequately assessed based on this specimen. Signed Electronically by: MIL QUINTANILLA MD 02/15/10 1157 -- -- DEPARTMENT OF PATHOLOGY, [address] [place] [address] [facility] Permit #[id number] Mil Quintanilla M.D. Director Luminita MarinescMitchell huang -- 43 Anion gap measurement may be of limited value in the presence of any alkalosis, especially in a combined acid base disorder. . 44 Note change in reference range as of 07/10/08. The change was based on recommendations from the [place] [employer]. 45 Please note change in reference range effective 08 . 46 A metabolite of Naproxen, O-desmethylnaproxen, has been shown to interfere with the Jendrmaryik-Rosa method for measuring total bilirubin. Samples from patients who have taken Naproxen have shown spurious elevation in total bilirubin levels. 47 Because ethnic data is not always readily [...] 15-29 5 Kidney failure <15 (or dialysis) 48 ---- RUN DATE: 09/30/09 [facility] NMI LIVE PAGE 1 RUN TIME: 1346 Specimen Inquiry RUN USER: INTERFACE -- Name: SABA VELIZ Status: REG REF Re09/26/09 Age/Sex: 64/M Unit#: [id number] Location: [facility] : 45 -- Specimen: [id number] SOUT Spec Date: 09/26/09 [facility] Dr: Antwon gtz MD Spec Type: SURGICAL P Received: 09/29/09-1141 Copies to: SPECIMEN SHAVE BIOPSY OF LEFT ANTERIOR SHOULDER HISTORY PRE-OP DIAGNOSIS: Neoplasm, uncertain. CLINICAL INFORMATION: 3/4 cm. irregularly shaped well but demarcated soft maculopapule with mild background erythema and overlying scaling. GROSS DESCRIPTION The specimen is received in formalin labelled Saba Veliz, Skin Left Shoulder, and consists of a shave skin specimen with a hyperkeratotic skin measuring 0.5 x 0.5 x 0.2 cm. Bisected and submitted entirely in one cassette. DIAGNOSIS Skin, left shoulder, shave biopsy: A. Skin with epidermis with few apoptotic bodies, hyperkeratosis, and lymphocytic infiltrate. B. Lichenoid inflammatory infiltrate within the superficial dermis composed predominantly of lymphocytes with rare plasma cells and macrophages. C. Pigment incontinence. D. No evidence of malignancy. Signed Electronically by: PEDRO LUIS ABDI 09/30/09 1346 -- -- DEPARTMENT OF PATHOLOGY, [address] [place] [address] [facility] Permit #[id number] Mil Quintanilla M.D. Director Pedro Luis Abdi M.D. Plant Taxonomist Dir magaly -- 49 Anion gap measurement may be of limited value in the presence of any alkalosis, especially in a combined acid base disorder. . 50 Note change in reference range as of 07/10/08. The change was based on recommendations from the [place] [employer]. 51 Please note change in reference range effective 08 . 52 Classification: Desirable . 53 CALCULATED LDL APPROXIMATES THE VALUE OF A DIRECT LDL MEASUREMENT. Classification: Near or above optimal . 54 * SERUM LEVELS OF PSA MEASURED USING THE ALFONSO JEANCARLOS ACCESS HYBRITECH IMMUNOASSAY SHOULD NOT BE INTERPRETED ABSOLUTE EVIDENCE OF THE PRESENCE OR ABSENCE OF DISEASE. THE PSA VALUE SHOULD BE USED IN CONJUNCTION WITH OTHER PERTINENT CLINICAL DIAGNOSTIC PROCEDURES. 55 Anion gap measurement may be of limited value in the presence of any alkalosis, especially in a combined acid base disorder. . 56 JOINT FLUID LEFT KNEE 57 Anion gap measurement may be of limited value in the presence of any alkalosis, especially in a combined acid base disorder. . 58 * SERUM LEVELS OF PSA MEASURED USING THE ALFONSO CRMnext ACCESS HYBRITECH IMMUNOASSAY SHOULD NOT BE INTERPRETED ABSOLUTE EVIDENCE OF THE PRESENCE OR ABSENCE OF DISEASE. THE PSA VALUE SHOULD BE USED IN CONJUNCTION WITH OTHER PERTINENT CLINICAL DIAGNOSTIC PROCEDURES. Procedures Date Code Description Status 04/29/2019 19266 X-Ray, C-Spine Complete, Min 4 Completed 05/04/2018 57988 Excise Benign Lesion 2.1-3CM Trunk/Arm/Leg Completed 01/27/2017 94185 ECG Monitor/Review & Interpretation, W/Visual Completed Superimpos Scan 01/27/2017 22743 ECG Monitor/Recording W/Scanning Completed 01/26/2017 32487 ECG Monitor/Review & Interpretation, W/Visual Completed Superimpos Scan 01/26/2017 27251 ECG Monitor/Recording W/Scanning Completed 01/26/2017 99503 Electrocardiogram Complete Completed 07/02/2015 29713 Removal Of Foreign Body From Ear Completed 07/03/2014 85940 Electrocardiogram Complete Completed 02/14/2012 98264834 Colonoscopy Completed 01/17/2012 57235 Remove Impact Cerumen Requiring Instrument, Unilateral Completed 01/13/2011 73129 Pure Tone, Threshold Completed 02/11/2010 24027 Biopsy Skin Lesion Single Completed 09/26/2009 03779 Shave Skin Lesion .6-1CM Trunk/Arm/Leg Completed 07/31/2009 0 Payment Completed 01/26/2009 0 Payment Completed 01/29/2008 0 Payment Completed 06/08/2006 57322 X-Ray Knee, Complete Completed 06/07/2006 81032 X-Ray Knee,Ap&Lateral Oblique Views Completed 06/07/2006 73732 Inject/Drain Joint/Bursa Major Completed 04/27/2006 28576 Sigmoidoscopy Diagnostic Completed 04/29/2005 99132 I & D Abscess Simple Completed 04/25/2005 0 Payment Completed 02/14/2005 83375 Electrocardiogram Complete Completed 12/27/2004 0 Payment Completed 11/24/2004 60845 X-Ray Chest Two Views Completed Encounters Type Date Location Provider Dx Diagnosis Office Visit 05/08/2019 Main Office Edi Ferreira, M25.562 Pain in left knee 1:15p D.OJojo M54.2 Cervicalgia M54.5 Low back pain 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 M54.2 Cervicalgia I34.1 Nonrheumatic mitral (valve) prolapse F52.21 Male erectile disorder M54.5 Low back pain R50.9 Fever, unspecified R25.2 Cramp and spasm Office Visit 04/23/2019 1:30p Main Office Edi Ferreira D.O. M54.2 Cervicalgia I34.1 Nonrheumatic mitral (valve) prolapse F52.21 Male erectile disorder G47.00 Insomnia, unspecified Z79.01 correction (current) use of anticoagulants M25.512 Pain in left shoulder Office Visit 04/09/2019 9:15a Main Office Edi Ferreira I34.1 Nonrheumatic mitral D.O. (valve) prolapse F52.21 Male erectile disorder G47.00 Insomnia, unspecified Z79.01 correction (current) use of anticoagulants Z00.00 Encntr for general adult medical exam w/o abnormal findings Z68.24 Body mass index (BMI) 24.0-24.9, adult Office Visit 05/28/2018 4:00p Main Office Pam Joaquin H69.92 Unspecified P.A. Eustachian tube disorder, left ear H69.91 Unspecified Eustachian tube disorder, right ear Office Visit 05/04/2018 2:30p Main Office Edi Ferreira D.O. L72.3 Sebaceous cyst F52.21 Male erectile disorder Office Visit 04/05/2018 2:00p Main Office Edi Ferreira D.O. L72.3 Sebaceous cyst G47.00 Insomnia, unspecified I34.1 Nonrheumatic mitral (valve) prolapse Z79.01 correction (current) use of anticoagulants Z00.01 Encounter for general adult medical exam w abnormal findings F52.21 Male erectile disorder Z71.89 Other specified counseling Office Visit 08/31/2017 10:00a Main Office Edi Ferreira G47.00 Insomnia , D.O. 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 (valve) prolapse Z51.81 Encounter for therapeutic drug level monitoring Z79.01 correction (current) use of anticoagulants Office Visit 03/30/2017 10:00a Main Office Anjel Centeno Z12.11 Encounter for Mitchell Reyes screening for malignant neoplasm of colon Z00.01 Encounter for general adult medical exam w abnormal findings N40.0 Benign prostatic hyperplasia without lower urinry tract symp I34.1 Nonrheumatic mitral (valve) prolapse Z71.89 Other specified counseling Office Visit 02/09/2017 11:15a Main Office Anjel Centeno K40.00 Bi inguinal Mitchell Reyes hernia, w obst, w/o gangrene, not spcf as recur I34.0 Nonrheumatic mitral (valve) insufficiency I34.1 Nonrheumatic mitral (valve) prolapse Z71.89 Other specified counseling Office Visit 01/26/2017 3:15p Main Office Anjel Centeno Z01.818 Encounter for yancy Reyes M.D. preprocedural examination R00.2 Palpitations R01.1 Cardiac murmur, unspecified R94.31 Abnormal electrocardiogram [ECG] [EKG] Office Visit 02/15/2016 9:15a Main Office Anjel Centeno Z00.01 Encounter for Mitchell Reyes general adult medical exam w abnormal findings F52.21 Male erectile disorder Office Visit 07/10/2015 1:10p Main Office Anjel Reyes, 847.0 Sprains & Strains M.DJojo Neck 931 Foreign Body Ear Office Visit 07/02/2015 1:05p Main Office Anjel Reyes, 847.0 Sprains & Strains M.D. Neck 910.0 Injury Superficial Abrasion Face Neck & Scalp W/O Infection 931 Foreign Body Ear E915 Foreign Body Accidentally Entering Other Orifice V90.89 Other Specified Retained Foreign Body Office Visit 06/18/2015 3:00p Main Office Anjel Reyes, 729.5 Pain In Limb M.D. 700 Corns & Callosities 214.8 Lipoma Other Specified Sites V65.49 Counseling Other Spec V03.82 Streptococcus Pneumoniae Vaccination Spec Other V07.2 Prophylactic Immunotherapy Office Visit 06/03/2015 1:45p Main Office Edi Ferreira, 088.81 Lyme Disease D.O. 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 389.10 Hearing Loss Sensorineural Unspec V72.63 Pre-Procedural Laboratory Examination V72.83 Examination Preoperative Other Spec Office Visit 04/05/2014 9:15a Main Office Anjel Centeno E906.4 Bite Nonvenomous Mitchell Reyes Arthropod 216.8 Benign Neoplasm Skin Other Spec Sites 916.4 Injury Superficial Insect Bite Hip Thigh Leg Ankle NV No Inf 695.9 Erythematous Condtions Unspec Office Visit 01/24/2014 2:30p Main Office Anjel Centeno 216.9 Benign Neoplasm Mitchell Reyes Skin Site Unspec 389.10 Hearing Loss Sensorineural Unspec V70.0 Examination General Medical Routine AT Health Care Facility 600.00 Hypertrophy Prostate W/O Urinary Obstruction & Other Luts 302.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 Pelvis 302.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 W/ Inhibited Sexual Excitement 389.10 Hearing Loss Sensorineural Unspec V70.0 Examination General Medical Routine AT Health Care Facility V76.51 Special Screening For Malignant Neoplasms Colon V76.44 Screening For Malig Hakan Prostate V77.91 Screening For Lipoid Disorders 600.00 Hypertrophy Prostate W/O Urinary Obstruction & Other Luts Office Visit 10/15/2012 3:15p Main Office Anjel Reyes, 780.93 Memory Loss M.D. 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 389.10 Hearing Loss Sensorineural Unspec V72.83 Examination Preoperative Other Spec Office Visit 01/13/2011 10:45a Main Office Anjel Centeno 389.10 Hearing Loss Mitchell Reyes Sensorineural Unspec 780.79 Malaise And Fatigue Other 600.00 Hypertrophy Prostate W/O Urinary Obstruction & Other Luts 780.52 Insomnia Unspecified V58.69 Medications Alf (Current) Use Encounter V76.44 Screening For Malig Hakan Prostate V70.0 Examination General Medical Routine AT Health Care Facility V76.51 Special Screening For Malignant Neoplasms Colon 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 V03.82 Streptococcus Pneumoniae Vaccination Spec Other V05.8 Single Disease Spec Other Vaccination & Inoculation V07.2 Prophylactic Immunotherapy Office Visit 07/19/2010 8:55a Main Office Anjel Centeno 780.79 Malaise And Mitchell Reyes Fatigue Other 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 302.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 W/ Inhibited Sexual Excitement Office Visit 02/11/2010 3:00p Main Office Anjel Centeno 238.2 Neoplasm Uncertain Mitchell Reyes Skin Office Visit 01/07/2010 10:45a Main Office Anjel Centeno 302.72 Psychosexual Mitchell Reyes Dysfunction W/ Inhibited Sexual Excitement V76.51 Special Screening For Malignant Neoplasms Colon V70.0 Examination General Medical Routine AT Health Care Facility V76.44 Screening For Malig Hakan Prostate V58.69 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51 Special Screening Mitchell Reyes For Malignant Neoplasms Colon V70.0 Examination General Medical Routine AT Health Care Facility V76.44 Screening For Malig Hakan Prostate 780.52 Insomnia Unspecified 780.79 Malaise And Fatigue Other 600.00 Hypertrophy Prostate W/O Urinary Obstruction & Other Luts Office Visit 07/25/2008 5:00p Main Office Anjel Centeno 780.52 Insomnia Mitchell Reyes Unspecified 780.79 Malaise And Fatigue Other 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 Leg 719.06 Effusion Joint Lower Leg Office Visit 04/27/2006 9:15a Main Office Anjel Reyes M.D. 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 at [facility]/14/2020 9:15 am - Edi Ferreira D.O. at Main [facility]/08/2019 - Edi Ferreira D.O.M25.562 Pain in left kneeFollow up:reschedule follow up for 1 week from today.M54.2 KknskquxqnmS03.5 Low back painA69.23 Arthritis due to Lyme disease
--- OUTSIDE RECORDS SUMMARY | 2019-05-15 12:27 | XMS REPORT | Continuity of Care Document ---
:1945 External Reference #:[id number] Author Name Edi Ferreira D.O. Address [address] [place] [address] Care Team Providers Name Role Phone HCP/LW on file Primary Care Physician Unavailable Payers Date Identification Numbers Payment Provider Subscriber Effective: 2018 Policy Number: [id number] [employer] Medicare Ppo Saba Veliz PayID: [id number] [place] [address] Problems Active Problems Provider Date Sensorineural hearing [...] Heart Disease Maternal Grandfather Stroke Paternal Uncles [place] at age 72 - in the 1980s Paternal Uncle other uncle had some kind of heart problem with unknown type of heart operations in his 70 and 80s Social History Type Date Description Comments Sex Unknown Education Highest Level Completed College Marital Status Diet 01/17/2012 Calcium Intake taking a [id number]=678 milk - 8 pl=423 cheese=0 yogurt=0 cottage cheese=0 other=0 goal 1200mg [...] Home is smoke-free 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 04/23/2019 Right-handed Advance Directive 01/13/2011 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 Hobbies 07/25/2008 [employer] Volunteering drives for [employer] Tobacco Use Start: Unknown Denies Cigarette Use [...] Patient is currently sexually active Age [address] [place] 21 Years Old Sexual Hx Patients has [...] Capsules Viagra take 1 tablet 18tabs F52.21 Edi Ferreira, 01/07/2010 - 100mg Tablets every 24 [...] CPT Code Status Date Vaccine Lot # [id number] Given 11/16/2018 Shingrix Zoster (Shingles) Vaccine (HZV) Recomb,Subnit,Adjuvanted 15244 Given 09/21/2018 Influenza Vaccine Split Virus Preservative Free Im Use 47173 Given 09/21/2018 Influenza Vaccine Split Virus Preservative Free Im Use 11998 Given 06/06/2018 Shingrix Zoster (Shingles) Vaccine (HZV) Recomb,Subnit,Adjuvanted 62925 Given 07/13/2017 Influenza Vaccine Split Virus Preservative Free Im [id number] Use 03138 Given 10/09/2015 Influenza Vaccine Split Virus Preservative Free Im Use 62412 Given 06/18/2015 Prevnar 13 [id number] 88783 Given 10/28/2014 Influenza Vaccine Split Virus Preservative Free Im Use 72306 Given 01/24/2014 Adacel or Boostrix, TDaP [id number] 07909 Given 10/25/2013 Flu, Split Virus 3Yrs 58979 Given 10/15/2012 Flu, Split Virus 3Yrs [id number] 14038 Given 08/22/2011 Flu, Split Virus 3Yrs 96832 Given 01/13/2011 Zostavax [id number] 41328 Given 01/13/2011 Pneumococcal Immunization [id number] 29271 Given 09/20/2010 Flu, Split Virus 3Yrs 53305 Given 11/04/2009 Flu, Split Virus 3Yrs [id number] 93048 Given 07/02/2009 Td Immunization [id number] 10412 Given 11/06/2008 Flu, Split Virus 3Yrs [id number] 74820 Given 10/09/2007 Flu, Split Virus 3Yrs [id number] 95021 Given 10/14/2005 Flu, Split Virus 3Yrs 26210 Given 11/24/1994 Td Immunization 59219 Given 11/24/1989 Flu, Split Virus 3Yrs Vital Signs Date Vital Result Comment 04/29/2019 4:13pm BP Systolic 120 mmHg BP [...] Date Facility Test Result H/L Range Note Xray 04/29/2019 [facility] Medicine X-Ray, Cervical no acute 1 Spine Min 4 process Views, Ap, Lat, & Both Oblique CBC Auto 02/27/2019 [facility] White Blood 6.3 10^3/uL N 3.5-10.8 Diff [phone] Count Red Blood Count 5.37 10^6/uL N 4.18-5.48 [...] % Nucleated Red Blood Cells % 0.2 Basic Metabolic Panel 02/27/2019 [facility] Sodium 140 mmol/L N 135- 145 [phone] Potassium 4.4 mmol/L N 3.5-5.0 Chloride 105 mmol/L N 101-111 Co2 Carbon Dioxide 29 mmol/L N 22-32 Anion Gap 6 mmol/L N 2-11 Glucose 114 mg/dL High 70-100 Blood Urea Nitrogen 19 mg/dL N 6-24 Creatinine 0.94 mg/dL N 0.67-1.17 BUN/Creatinine Ratio 20.2 High 8-20 Calcium 9.6 mg/dL N 8.6-10.3 Egfr Non- 78.7 >60 Egfr 95.2 >60 2 Laboratory test 02/27/2019 [facility] Magnesium 2.2 mg/dL N 1.9-2.7 finding [phone] CBC Auto Diff 02/03/2019 [facility] White Blood 7.8 10^3/uL N 3.5- 10.8 [phone] Count Red Blood Count 5.14 10^6/uL N 4.18-5.48 [...] Cells % 0 Comp Metabolic Panel 02/03/2019 [facility] Sodium 137 mmol/L N 135- 145 [phone] Potassium 4.2 mmol/L N 3.5-5.0 Chloride 106 [...] Egfr Non- 92.1 >60 Egfr 111.4 >60 3 Laboratory test 02/03/2019 [facility] TSH (Thyroid 4.16 mcIU/mL N 0.34-5.60 finding [phone] Stim Horm) Basic Metabolic 06/12/2018 [facility] Sodium 138 mmol/L N 135-145 Panel [phone] Potassium 4.2 mmol/L N 3.5-5.0 Chloride 102 mmol/L N 101-111 Co2 Carbon Dioxide 28 mmol/L N 22-32 Anion Gap 8 mmol/L N 2-11 Glucose 88 mg/dL N 70-100 Blood Urea Nitrogen 19 mg/dL N 6-24 Creatinine 0.95 mg/dL N 0.67-1.17 BUN/Creatinine Ratio 20.0 N 8-20 Calcium 9.4 mg/dL N 8.6-10.3 Egfr Non- 77.7 >60 Egfr 94.0 >60 4 Laboratory test 05/04/2018 [facility] Surgical SEE RESULT 5 finding [phone] Pathology BELOW Laboratory test 11/06/2017 [facility] Inr/Protime 1.06 High 0.77-1 6 finding [phone] Laboratory test 08/22/2017 [facility] Inr/Protime 1.71 High 0.89-1 7 , 8 finding [phone] .11 Inr/Protime 08/15/2017 [facility] Inr 1.13 High 0.89-6 [phone] .11 Inr/Protime 08/07/2017 [facility] Inr 2.88 High 0.89-4 [phone] .11 Inr/Protime 07/31/2017 [facility] Inr 1.93 High 0.89-2 [phone] .11 Inr/Protime 07/17/2017 [facility] Inr 2.07 High 0.89-5 [phone] .11 Inr/Protime 07/10/2017 [facility] Inr 2.22 High 0.89-4 [phone] .11 Inr/Protime 07/07/2017 [facility] Inr 1.98 High 0.89-5 [phone] .11 Inr/Protime 07/03/2017 [facility] Inr 1.68 High 0.89-3 [phone] .11 CBC Auto Diff 06/26/2017 [facility] White Blood 8.1 10^3/uL N 3.5-10 [phone] Count .8 Red Blood Count 4.84 10^6/uL N 4.0-5.4 [...] Cells % 0 N Laboratory test 06/26/2017 [facility] TSH (Thyroid 1.88 mcIU/mL N 0.34-5.60 finding [phone] Stim Horm) Comp Metabolic 06/26/2017 [facility] Sodium 139 mmol/L N 133-145 Panel [phone] Potassium 4.9 mmol/L N 3.5-5.0 Chloride 106 [...] 88.6 N >60 Egfr 113.9 N >60 9 Inr/Protime 06/26/2017 [facility] Inr 1.73 High 0.89-1.11 [phone] Inr/Protime 06/20/2017 [facility] Inr 1.77 High 0.89-1.11 [phone] Inr/Protime 06/13/2017 [facility] Inr 1.82 High 0.89-1.11 [phone] Inr/Protime 06/09/2017 [facility] Inr 1.93 High 0.89-1.11 10 [phone] Laboratory test finding 06/07/2017 [facility] Inr/Protime 2.71 High 0.89-1.11 [phone] Urine Micro Inhouse 03/30/2017 In House Ua WBC 2-3 11 Ua RBC 6 Ua Casts - Ua Epi 4-5 Ua Other - Ua Glucose - Ua Bilirubin - Ua Ketones - Ua Specific [place] 1.020 Ua Blood - Ua PH 5.0 Ua Protein - Ua Urobilinogen - Ua Nitrite - Ua Leukocytes - Laboratory test 03/24/2017 [facility] TSH (Thyroid 2.70 mcIU/mL N 0.34-5.60 finding [phone] Stim Horm) CBC Auto Diff 02/13/2017 [facility] White Blood 6.7 10^3/uL N 3.5- 10.8 [phone] Count Red Blood Count 5.58 10^6/uL High [...] % 0.2 N Comp Metabolic Panel 02/13/2017 [facility] Sodium 139 mmol/L N 133- 145 [phone] Potassium 4.0 mmol/L N 3.5-5.0 Chloride 106 [...] 88.9 N >60 Egfr 114.3 N >60 12 Laboratory test 02/13/2017 [facility] Magnesium 2.0 mg/dL N 1.9-2.7 13 finding [phone] Lipid Profile 02/13/2017 [facility] Triglycerides 96 mg/dL N 14 (Trig/Chol/HDL) [phone] Cholesterol 166 mg/dL N 15 HDL Cholesterol 42.6 mg/dL N 16 LDL Cholesterol 104 mg/dL N 17 Urine Micro Inhouse 02/12/2015 In House Ua WBC 0-1 Ua RBC 0-3 Ua Casts - Ua Epi 0-1 Ua Other crystals, sediment Ua Glucose - Ua Bilirubin - Ua Ketones - Ua Specific [place] 1.020 Ua Blood - Ua PH 6.0 Ua Protein tr Ua Urobilinogen - Ua Nitrite - Ua Leukocytes - Basic Metabolic Panel 07/08/2014 [facility] Sodium 137 mmol/L N 133- 145 [phone] Potassium 4.2 mmol/L N 3.7-5.6 Chloride 106 mmol/L N 101-111 Co2 Carbon Dioxide 24 mmol/L N 22-32 Anion Gap 7 mmol/L N 2-11 Glucose 130 mg/dL High 70-100 Blood Urea Nitrogen 19 mg/dL N 6-24 Creatinine 0.88 mg/dL N 0.67-1.17 BUN/Creatinine Ratio 21.6 High 8-20 Calcium 9.4 mg/dL N 8.6-10.3 Egfr Non- 85.9 N >60 Egfr 110.4 N >60 18 Urine Micro Inhouse 01/24/2014 In House Ua WBC - Ua RBC - Ua Casts - Ua Epi - Ua Other - Ua Glucose - Ua Bilirubin - Ua Ketones - Ua Specific [place] 1.020 Ua Blood - Ua PH 5.0 Ua Protein - Ua Urobilinogen - Ua Nitrite - Ua Leukocytes - Laboratory 01/30/2013 [facility] Hepatitis C Nonreactive Nonreactive 19 test finding [phone] Antibody Lipid Profile 01/30/2013 [facility] Triglycerides 104 mg/dL 40-200 (Trig/Chol/HD [phone]) Cholesterol 186 mg/dL Less than 200 HDL Cholesterol 49 mg/dL 40-60 20 Cholesterol/HDL Ratio 3.8 Average 1-4.44 LDL Cholesterol 116.2 mg/dL High Less Than 100 21 Urine Micro Inhouse 01/18/2013 In House Ua WBC - Ua RBC - Ua Casts - Ua Epi - Ua Other - Ua Glucose - Ua Bilirubin - Ua Ketones - Ua Specific [place] 1.025 Ua Blood - Ua PH 6.0 Ua Protein - Ua Urobilinogen - Ua Nitrite - Ua Leukocytes - Comp Metabolic Panel 10/01/2012 [facility] Sodium 141 mmol/L 133- 145 [phone] Potassium 4.1 mmol/L 3.5-5.0 Chloride 107 mmol/L [...] 1.7 1-3 Total Bilirubin 0.5 mg/dL 0.1-1.0 22 Alkaline Phosphatase 34 U/L 30-110 Alt 22 U/L 14-54 Ast 28 U/L 12-42 Egfr Non- 84.2 >60 Egfr 108.2 >60 23 Laboratory test 10/01/2012 [facility] Erythrocyte Sed 7 MM/HR 0-40 24 finding [phone] Rate Heavy Metal Blool 10/01/2012 [facility] Arsenic Not Detected 25 [phone] Lead 1 26 Mercury <[address] [place] [address] Carlos Guardian First Name Melonie Guardian Last Name [facility] Venous/Capillary Heavy Metals Venous Patient Race CBC Auto Diff 10/01/2012 [facility] White Blood Count 4.7 10^3/uL Low 4.8-10.8 [phone] Red Blood Count 5.14 10^6/uL 4.0-5.4 Hemoglobin [...] 0-2 Nucleated Red Blood Cells % 0 Iron & Iron Binding Capacity 10/01/2012 [facility] Iron 60 UG/ML 45- 182 [phone] Unsaturated Iron Binding 389 g/dL Total Iron Binding Capacity 449 g/dL 250-450 Transferrin 321.0 % Iron Saturation 13 % Low 15-55 RPR 10/01/2012 [facility] Syphilis IgG Nonreactive Nonreactive 29 [phone] RPR TNP Nonreactive RPR Titer TNP Pediatric/Maternal NO Laboratory test 10/01/2012 [facility] TSH (Thyroid 1.74 MIU/ML 0.34- 5.60 finding [phone] Stimulating Horm) Vitamin B12 401 pg/mL 180-914 Testosterone Free & 10/01/2012 [facility] Free Testosterone 9.5 ng/dL 9-30 Total [phone] ng/dl Testosterone 397 ng/dL 240-950 30 Cell Morphology 10/01/2012 [facility] RBC Morphology Normal Normal [phone] Urine Micro Inhouse 01/13/2011 In House Ua WBC 0-2 Ua RBC - Ua Casts - Ua Epi 0-1 Ua Other - Ua Glucose - Ua Bilirubin - Ua Ketones - Ua Specific [place] 1.020 Ua Blood - Ua PH 5.0 Ua Protein - Ua Urobilinogen - Ua Nitrite - Ua Leukocytes - Laboratory test 02/11/2010 [facility] Surgical <SEE 31 finding [phone] Pathology NOTE> Laboratory test 01/07/2010 In House Occult Blood - neg x3 finding Stool Comp Metabolic 01/07/2010 [facility] Sodium 142 mmol/L 135- Panel [phone] Potassium 4.6 mmol/L 3.5-5.0 Chloride 105 mmol/L 101-111 Co2 (Carbon Dioxide) 27.0 mmol/L 22-32 Anion Gap 10.0 mmol/L 2-11 32 Glucose 83 mg/dL 70-100 33 BUN 16 mg/dL 6-24 Creatinine 1.00 mg/dL 0.50-1.40 One Over Creatinine 1.00 BUN/Creatinine Ratio 16.0 8-20 Calcium 9.5 mg/dL 8.1-9.9 34 Total Protein 6.3 GM/DL 6.2-8.1 Albumin 4.1 GM/DL 3.2-5.2 Globulin 2.2 GM/DL 2-4 Albumin/Globulin Ratio 1.9 1-3 Bilirubin Total 0.5 mg/dL 0.4-1.5 35 Alkaline Phosphatase 37 U/L Low 39-117 Alt (SGPT) 33 U/L 17-63 Ast (Sgot) 28 U/L 12-42 eGFR Non- 80.0 > 60 eGFR 96.7 > 60 36 CBC With Electronic 01/07/2010 [facility] White Blood 6.1 CUMM 4.8- 10.8 Diff [phone] Count Red Cell Count 5.06 CUMM 4.6-6.2 [...] Abs Basophils 0 0-0.2 Laboratory test 09/26/2009 [facility] Surgical <SEE 37 finding [phone] Pathology NOTE> Urine Micro 01/01/2009 In House Urine - Inhouse Microscopic Inhouse Ua Inhouse 01/01/2009 In House Ua Glucose - Ua Bilirubin - Ua Ketones - Ua Specific [place] 1.030 Ua Blood - Ua PH 5.0 Ua Protein - Ua Urobilinogen - Ua Nitrite - Ua Leukocytes - Comp Metabolic Panel 01/01/2009 [facility] Sodium 139 mmol/L 135- 145 [phone] Potassium 4.3 mmol/L 3.5-5.0 Chloride 107 mmol/L 101-111 Co2 (Carbon Dioxide) 27.0 mmol/L 22-32 Anion Gap 5.0 mmol/L 2-11 38 Glucose 88 mg/dL 70-100 39 BUN 12 mg/dL 6-24 Creatinine 0.90 mg/dL 0.50-1.40 One Over Creatinine 1.10 BUN/Creatinine Ratio 13.3 8-20 Calcium 9.7 mg/dL 8.1-9.9 40 Total Protein 6.4 GM/DL 6.2-8.1 Albumin 4.1 GM/DL 3.2-5.2 Globulin 2.3 GM/DL 2-4 Albumin/Globulin Ratio 1.8 1-3 Bilirubin Total 0.8 mg/dL 0.4-1.5 Alkaline Phosphatase 38 U/L Low 39-117 Alt (SGPT) 55 U/L 17-63 Ast (Sgot) 40 U/L 12-42 CBC With Electronic 01/01/2009 [facility] White Blood 7.0 CUMM 4.8- 10.8 Diff [phone] Count Red Cell Count 5.49 CUMM 4.6-6.2 [...] Abs Basophils 0 0-0.2 Lipid Profile 12/28/2007 [facility] Cholesterol/HDL 4.02 1-4.97 (Trig/Chol/HDL) [phone] Ratio AVERAGE Cholesterol 181 mg/dL Less Than 200 41 Triglyceride 53 mg/dL 40-200 High Density Lipoprotein 45 mg/dL 40-60 Low Density Lipoprotein 125 mg/dL High Less Than 100 42 Laboratory test 12/28/2007 [facility] PSA Screening 1.03 NG/ML 0-4 43 finding [phone] CBC With Manual 12/28/2007 [facility] White Blood 5.4 CUMM 4.8-10.8 Diff [phone] Count Absolute Neutrophil Count 3.7 Anisocytosis SLIGHT [...] 15 % 10.5-15 Comp Metabolic Panel 12/28/2007 [facility] One Over Creatinine 0.90 [phone] Anion Gap 7.0 mmol/L 2-11 44 Albumin/Globulin Ratio 1.7 1-3 Albumin 4.0 GM/DL [...] Creatinine 1.1 mg/dL 0.5-1.4 Laboratory test 06/07/2006 [facility] Crystals Fluid NONE SEEN 45 finding [phone] CBC With Electronic 02/21/2006 [facility] White Blood 5.8 CUMM 4.8- 10.8 Diff [phone] Count Abs Basophils 0 0-0.2 Abs Eosinophils [...] % High 10.5-15 Comp Metabolic Panel 02/21/2006 [facility] One Over Creatinine 1.00 [phone] Anion Gap 8.0 mmol/L 2-11 46 Albumin/Globulin Ratio 1.5 1-3 Albumin 4.2 GM/DL [...] Creatinine 1.0 mg/dL 0.5-1.4 Laboratory test 02/21/2006 [facility] Erythrocyte Sed Rate 1 MM/HR 0 -20 finding [phone] TSH 2.17 MIU/ML 0.34-5.60 Ua Inhouse 02/14/2005 In House Ua Glucose NEG Ua Bilirubin NEG Ua Ketones NEG Ua Specific [place] 1.030 Ua Blood NEG Ua PH 5.0 Ua Protein NEG Ua Urobilinogen NEG Ua Nitrite NEG Ua Leukocytes NEG Laboratory test 02/14/2005 [facility] PSA Screening 1.0 NG/ML 0-4 47 finding [phone] Laboratory test 02/14/2005 In House Urine Microscopic NEG finding Inhouse 1 reduced disc height, good cervical lordosis, degenerative disc disease suggested. 2 Because ethnic data is not always [...] 5 Kidney failure <15 (or dialysis) 3 Because ethnic data is not always readily [...] 15-29 5 Kidney failure <15 (or dialysis) 4 Because ethnic data is not always readily [...] 15-29 5 Kidney failure <15 (or dialysis) 5 SEE RESULT BELOW Name: SABA VELIZ : [address]: Edi Ferreira DO Acct: [id number] Unit: [id number] AGE: 72 Location: [facility] Re05/04/18 SEX: M Status: REG REF SPEC: [id number] JAYCEE: 05/04/18-172 [facility] [address]: Edi Ferriera DO REQ: [id number] RECD: 05/07/18-1312 STATUS: SOUT _ ORDERED: LEVEL 4 COMMENTS: [id number] FINAL DIAGNOSIS Skin, right arm, excision: -- [...] The specimen is inked, serially sectioned and client relations representative sections are submitted in one cassette. Signed by and Reported on: Meeta Patterson MD 05/08/18 1456 END OF REPORT DEPARTMENT OF PATHOLOGY, [address] [place] [address] Mil Quintanilla M.D. Director [facility] # [id number] 6 Please note the change in INR reference range effective 17. 7 ORDERED:06/08/17 EXPIRES: 12/09/17 8 ORDERED:06/08/17 EXPIRES: 12/09/17 9 Because ethnic data is not always readily [...] 15-29 5 Kidney failure <15 (or dialysis) 10 Make this a standing order. 11 void, clear, yellow 12 Because ethnic data is not always readily [...] 15-29 5 Kidney failure <15 (or dialysis) 13 FASTING 14 Desirable <150 Borderline high 150-199 High 200-499 Very High >500 15 Desirable <200 Borderline high 200-239 High >239 16 Low <40 Desirable: 40-60 High: >60 17 Desirable: <100 mg/dL Near Optimal: 100-129 mg/dL Borderline High: 130-159 mg/dL High: 160-189 mg/dL Very High: >189 mg/dL 18 Because ethnic data is not always readily [...] 15-29 5 Kidney failure <15 (or dialysis) 19 PT IS FASTING 20 HDL Interpretation: Undesirable: High Risk: Less than 40 MG/DL Desirable: Low Risk: Greater than 60 MG/DL 21 LDL Interpretation: Low Risk Optimal Level: LDL Less than 100 MG/DL Near or Above Optimal: LDL 100-129 MG/DL Borderline High Risk: LDL 130-159 MG/DL High Risk: LDL 160-189 MG/DL Very High Risk: LDL Greater than 189 MG/DL 22 A metabolite of Naproxen, O-desmethylnaproxen, has been shown to interfere with the Jendrmaryik-Rosa method for measuring total bilirubin. Samples from patients who have taken Naproxen have shown spurious elevation in total bilirubin levels. 23 Because ethnic data is not always [...] 5 Kidney failure <15 (or dialysis) 24 @10/01/12 1355: Cell Morphology added. RFLXG=RBC MORPH. 25 Reference 0-12 26 Reference 0-9 27 Reference 0-9 28 Reference 0.0-4.9 29 Warning: A positive result is not useful for establishing a diagnosis of syphilis. In most situations, such a result may reflect a prior treated infection; a negative result can exclude a diagnosis of syphilis except for incubating or early primary disease. 30 Test Performed by: [facility] [address] [address] Truck Jumper: Benito Gomez III, M.D. R 31 ---- RUN DATE: 02/15/10 [facility] NMI LIVE PAGE 1 RUN TIME: 1158 Specimen Inquiry RUN USER: INTERFACE -- Name: SABA VELIZ Status: REG REF Re02/11/10 Age/Sex: 64/M Unit#: [id number] Location: [facility] : [birth year] -- Specimen: [id number] SOUT Spec Date: 02/11/[address]: Anjel martinez MD Spec Type: SURGICAL [...] 02/15/10 1157 -- -- DEPARTMENT OF PATHOLOGY, [address] [place] [address] [facility] Permit #[id number] Mil Qunitanilla M.D. Director Pedro Luis Abdi M.D. Panel Gluer Dir magaly -- 32 Anion gap measurement may be of limited value in the presence of any alkalosis, especially in a combined acid base disorder. . 33 Note change in reference range as of 07/10/08. The change was based on recommendations from the [place] [employer]. 34 Please note change in reference range effective 08 . 35 A metabolite of Naproxen, O-desmethylnaproxen, has been shown to interfere with the Jendrassik-Garden method for measuring total bilirubin. Samples from patients who have taken Naproxen have shown spurious elevation in total bilirubin levels. 36 Because ethnic data is not always readily [...] 15-29 5 Kidney failure <15 (or dialysis) 37 ---- RUN DATE: 09/30/09 [facility] NMI LIVE PAGE 1 RUN TIME: 1346 Specimen Inquiry RUN USER: INTERFACE -- Name: SABA VELIZ Carolyn#: [id number] Status: REG REF Re09/26/09 Age/Sex: 64/M Unit#: [id number] Location: [facility] : [birth year] -- Specimen: [id number] Spec Date: 09/26/[address]: Antwon gtz MD Spec Type: SURGICAL P Received: 09/29/091141 Copies to: SPECIMEN SHAVE BIOPSY OF LEFT [...] 09/30/09 1346 -- -- DEPARTMENT OF PATHOLOGY, [address] [place] [address] [facility] Permit #[id number] Mil Quintanilla M.D. Director Pedro Luis Abdi M.D. Panel Gluer Dir magaly -- 38 Anion gap measurement may be of limited value in the presence of any alkalosis, especially in a combined acid base disorder. . 39 Note change in reference range as of 07/10/08. The change was based on recommendations from the [place] [employer]. 40 Please note change in reference range effective 08 . 41 Classification: Desirable . 42 CALCULATED LDL APPROXIMATES THE VALUE OF A DIRECT LDL MEASUREMENT. Classification: Near or above optimal . 43 * SERUM LEVELS OF PSA MEASURED USING THE ALFONSO JEANCARLOS ACCESS HYBRITECH IMMUNOASSAY SHOULD NOT BE INTERPRETED ABSOLUTE EVIDENCE OF THE PRESENCE OR ABSENCE OF DISEASE. THE PSA VALUE SHOULD BE USED IN CONJUNCTION WITH OTHER PERTINENT CLINICAL DIAGNOSTIC PROCEDURES. 44 Anion gap measurement may be of limited value in the presence of any alkalosis, especially in a combined acid base disorder. . 45 JOINT FLUID LEFT KNEE 46 Anion gap measurement may be of limited value in the presence of any alkalosis, especially in a combined acid base disorder. . 47 * SERUM LEVELS OF PSA MEASURED USING THE ALFONSO JEANCARLOS ACCESS HYBRITECH IMMUNOASSAY SHOULD NOT BE INTERPRETED ABSOLUTE EVIDENCE OF THE PRESENCE OR ABSENCE OF DISEASE. THE PSA VALUE SHOULD BE USED IN CONJUNCTION WITH OTHER PERTINENT CLINICAL DIAGNOSTIC PROCEDURES. Procedures Date Code Description Status 04/29/2019 33793 X-Ray, C-Spine Complete, Min 4 Completed 05/04/2018 10564 Excise Benign Lesion 2.1-3CM Trunk/Arm/Leg Completed 01/27/2017 40694 ECG Monitor/Review & Interpretation, W/Visual Completed Superimpos Scan 01/27/2017 06950 ECG Monitor/Recording W/Scanning Completed 01/26/2017 43640 ECG Monitor/Review & Interpretation, W/Visual Completed Superimpos Scan 01/26/2017 73772 ECG Monitor/Recording W/Scanning Completed 01/26/2017 53174 Electrocardiogram Complete Completed 07/02/2015 72873 Removal Of Foreign Body From Ear Completed 07/03/2014 28902 Electrocardiogram Complete Completed 02/14/2012 65240329 Colonoscopy Completed 01/17/2012 47020 Remove Impact Cerumen Requiring Instrument, Unilateral Completed 01/13/2011 68177 Pure Tone, Threshold Completed 02/11/2010 57119 Biopsy Skin Lesion Single Completed 09/26/2009 81860 Shave Skin Lesion .6-1CM Trunk/Arm/Leg Completed 07/31/2009 0 Payment Completed 01/26/2009 0 Payment Completed 01/29/2008 0 Payment Completed 06/08/2006 77583 X-Ray Knee, Complete Completed 06/07/2006 59634 X-Ray Knee,Ap&Lateral Oblique Views Completed 06/07/2006 64422 Inject/Drain Joint/Bursa Major Completed 04/27/2006 57921 Sigmoidoscopy Diagnostic Completed 04/29/2005 76151 I & D Abscess Simple Completed 04/25/2005 0 Payment Completed 02/14/2005 40507 Electrocardiogram Complete Completed 12/27/2004 0 Payment Completed 11/24/2004 79342 X-Ray Chest Two Views Completed Encounters Type Date Location Provider Dx Diagnosis Office Visit 04/29/2019 3:45p Main Office Edi Ferreira D.O. M54.2 Cervicalgia I34.1 Nonrheumatic mitral (valve) prolapse F52.21 Male erectile disorder M54.5 Low back pain R50.9 Fever, unspecified R25.2 Cramp and spasm Office Visit 04/23/2019 1:30p Main Office Edi Ferreira D.O. M54.2 Cervicalgia I34.1 Nonrheumatic mitral (valve) prolapse F52.21 Male erectile disorder G47.00 Insomnia, unspecified Z79.01 custodial (current) use of anticoagulants M25.512 Pain in left shoulder Office Visit 04/09/2019 9:15a Main Office Edi Ferreira I34.1 Nonrheumatic mitral D.O. (valve) prolapse F52.21 Male erectile disorder G47.00 Insomnia, unspecified Z79.01 long term care pharmacist (current) use of anticoagulants Z00.00 Encntr for general adult medical exam w/o abnormal findings Z68.24 Body mass index (BMI) 24.0-24.9, adult Office Visit 05/28/2018 4:00p Main Office Pam Joaquin, H69.92 Unspecified P.A. Eustachian tube disorder, left ear H69.91 Unspecified Eustachian tube disorder, right ear Office Visit 05/04/2018 2:30p Main Office Edi Ferreira D.O. L72.3 Sebaceous cyst F52.21 Male erectile disorder Office Visit 04/05/2018 2:00p Main Office Edi Ferreira D.O. L72.3 Sebaceous cyst G47.00 Insomnia, unspecified I34.1 Nonrheumatic mitral (valve) prolapse Z79.01 long term care pharmacist (current) use of anticoagulants Z00.01 Encounter for general adult medical exam w abnormal findings F52.21 Male erectile disorder Z71.89 Other specified counseling Office Visit 08/31/2017 10:00a Main Office Edi Ferreira, G47.00 Insomnia , D.O. 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 (valve) prolapse Z51.81 Encounter for therapeutic drug level monitoring Z79.01 custodial (current) use of anticoagulants Office Visit 03/30/2017 [...] Reyes, 847.0 Sprains & Strains M.D. Neck 931 Foreign Body Ear Office Visit [...] Psychosexual Dysfunction W/ Inhibited Sexual Excitement v06.1 Aznomdybmo-Pxlrkop-Cngrrwlo Combined (DTaP) V07.2 Prophylactic Immunotherapy Office Visit [...] Other Luts 780.52 Insomnia Unspecified V58.69 Medications [facility] (Current) Use Encounter V76.44 Screening For Malig [...] Screening For Malig Hakan Prostate V58.69 Medications [facility] (Current) Use Encounter 600.00 Hypertrophy Prostate W/O Urinary Obstruction & Other Luts V04.81 Need For Prophylactic Vaccination & Inoculation/Influenza Office Visit 09/26/2009 9:15a Main Office Antwon Barreto, 238.2 Neoplasm Uncertain Mitchell Skin 702.19 Seborrheic Keratosis Other Office Visit [...] Office Visit 12/27/2007 10:45a Main Office Anjel Reyes, 706.2 Sebaceous Cyst Mitchell 302.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 [...] Office Visit 02/14/2005 2:30p Main Office Anjel Centeno 700 Corns & Callosities Mitchell Reyes 785.1 Palpitations V70.0 Examination General Medical Routine [facility] 302.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 W/ Inhibited Sexual Excitement V76.51 Special Screening For Malignant Neoplasms Colon V81.6 Screening For Genitourinary Conditions Other & Unspec Office Visit 11/24/2004 11:15a Main Office Anjel Reyes, 466.0 Bronchitis Acute Mitchell 733.13 FX Pathologic Vertebrae Plan of Treatment Future Appointment(s):05/13/2019 2:45 pm - Edi Ferreira D.O. at Main Euputi6304/14/2020 9:15 am - Edi Ferreira D.O. at Main Xpohah4904/29/2019 - Edi Ferreira D.O.M54.2 CervicalgiaFollow up:as vqyeguzwlH11.1 Nonrheumatic mitral (valve) tgctyhbdN69.21 Male erectile bnkcrqjmB87.5 Low back painR50.9 Fever, acgjudhlkndQ21.2 Cramp and spasmFollow up:2 weeks recheck neck pain/spasm
--- OUTSIDE RECORDS SUMMARY | 2019-05-15 12:28 | XMS REPORT | Continuity of Care Document ---
:1945 External Reference #:[id number] Author Name Edi Ferreira D.O. Address [address] [place] [address] Care Team Providers Name Role Phone HCP/LW on file Primary Care Physician Unavailable Payers Date Identification Numbers Payment Provider Subscriber Effective: 2018 Policy Number: [id number] [employer] Medicare Ppo Saba Veliz PayID: [id number] [address] [place] [address] Problems Active Problems Provider Date Sensorineural hearing [...] Heart Disease Maternal Grandfather Stroke Paternal Uncles PA at age 72 - in the 1980s Paternal Uncle other uncle had some kind of heart problem with unknown type of heart operations in his 70 and 80s Social History Type Date Description Comments Sex Unknown Education Highest Level Completed College Marital Status Diet 01/17/2012 Calcium Intake taking a euyothok=795 milk - 8 ik=052 cheese=0 yogurt=0 cottage cheese=0 other=0 goal 1200mg [...] Home is smoke-free 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 Hand Dominance 04/23/2019 Right-handed Advance Directive 01/13/2011 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 Hobbies 07/25/2008 [employer] Volunteering drives for [employer] Tobacco Use Start: Unknown Denies Cigarette Use [...] Patient is currently sexually active Age 1st [place] 21 Years Old Sexual Hx Patients has [...] CPT Code Status Date Vaccine Lot # 12827 Given 11/16/2018 Shingrix Zoster (Shingles) Vaccine (HZV) Recomb,Subnit,Adjuvanted 06936 Given 09/21/2018 Influenza Vaccine Split Virus Preservative Free Im Use 96853 Given 09/21/2018 Influenza Vaccine Split Virus Preservative Free Im Use 48668 Given 06/06/2018 Shingrix Zoster (Shingles) Vaccine (HZV) Recomb,Subnit,Adjuvanted 52283 Given 07/13/2017 Influenza Vaccine Split Virus Preservative Free Im [id number] Use 64139 Given 10/09/2015 Influenza Vaccine Split Virus Preservative Free [place] Use 85600 Given 06/18/2015 Prevnar 13 [id number] 83312 Given 10/28/2014 Influenza Vaccine Split Virus Preservative Free [place] Use 21283 Given 01/24/2014 Adacel or Boostrix, TDaP [id number] 03049 Given 10/25/2013 Flu, Split Virus 3Yrs 50883 Given 10/15/2012 Flu, Split Virus 3Yrs [id number] 90949 Given 08/22/2011 Flu, Split Virus 3Yrs 86523 Given 01/13/2011 Zostavax [id number] 67642 Given 01/13/2011 Pneumococcal Immunization [id number] 95267 Given 09/20/2010 Flu, Split Virus 3Yrs 33088 Given 11/04/2009 Flu, Split Virus 3Yrs [id number] 71349 Given 07/02/2009 Td Immunization [id number] 64132 Given 11/06/2008 Flu, Split Virus 3Yrs 03488 34700 Given 10/09/2007 Flu, Split Virus 3Yrs [id number] 90979 Given 10/14/2005 Flu, Split Virus 3Yrs 84042 Given 11/24/1994 Td Immunization 26449 Given 11/24/1989 Flu, Split Virus 3Yrs Vital [...] Date Facility Test Result H/L Range Note CBC Auto Diff 02/27/2019 [facility] White Blood 6.3 10^3/uL N 3.5- 10.8 [phone] Count Red Blood Count 5.37 10^6/uL N [...] Cells % 0.2 Basic Metabolic Panel 02/27/2019 [facility] Sodium 140 mmol/L N 135- 145 [phone] Potassium 4.4 mmol/L N 3.5-5.0 Chloride 105 mmol/L N 101-111 Co2 Carbon Dioxide 29 mmol/L N 22-32 Anion Gap 6 mmol/L N 2-11 Glucose 114 mg/dL High 70-100 Blood Urea Nitrogen 19 mg/dL N 6-24 Creatinine 0.94 mg/dL N 0.67-1.17 BUN/Creatinine Ratio 20.2 High 8-20 Calcium 9.6 mg/dL N 8.6-10.3 Egfr Non- 78.7 >60 Egfr 95.2 >60 1 Laboratory test 02/27/2019 [facility] Magnesium 2.2 mg/dL N 1.9-2.7 finding [phone] CBC Auto Diff 02/03/2019 [facility] White Blood 7.8 10^3/uL N 3.5- 10.8 [phone] Count Red Blood Count 5.14 10^6/uL N [...] Cells % 0 Comp Metabolic Panel 02/03/2019 [facility] Sodium 137 mmol/L N 135- 145 [phone] Potassium 4.2 mmol/L N 3.5-5.0 Chloride 106 [...] Egfr Non- 92.1 >60 Egfr 111.4 >60 2 Laboratory test 02/03/2019 [facility] TSH (Thyroid 4.16 mcIU/mL N 0.34-5.60 finding [phone] Stim Horm) Basic Metabolic 06/12/2018 [facility] Sodium 138 mmol/L N 135-145 Panel [phone] Potassium 4.2 mmol/L N 3.5-5.0 Chloride 102 mmol/L N 101-111 Co2 Carbon Dioxide 28 mmol/L N 22-32 Anion Gap 8 mmol/L N 2-11 Glucose 88 mg/dL N 70-100 Blood Urea Nitrogen 19 mg/dL N 6-24 Creatinine 0.95 mg/dL N 0.67-1.17 BUN/Creatinine Ratio 20.0 N 8-20 Calcium 9.4 mg/dL N 8.6-10.3 Egfr Non- 77.7 >60 Egfr 94.0 >60 3 Laboratory test 05/04/2018 [facility] Surgical SEE RESULT 4 finding [phone] Pathology BELOW Laboratory test 11/06/2017 [facility] Inr/Protime 1.06 High 0.77-1 5 finding [phone] Laboratory test 08/22/2017 [facility] Inr/Protime 1.71 High 0.89-1 6 , 7 finding [phone] .[phone] Inr/Protime 08/15/2017 [facility] Inr 1.13 High 0.89-4 [phone] .11 Inr/Protime 08/07/2017 [facility] Inr 2.88 High 0.89-4 [phone] .11 Inr/Protime 07/31/2017 [facility] Inr 1.93 High 0.89-8 [phone] .11 Inr/Protime 07/17/2017 [facility] Inr 2.07 High 0.89-6 [phone] .11 Inr/Protime 07/10/2017 [facility] Inr 2.22 High 0.89-7 [phone] .11 Inr/Protime 07/07/2017 [facility] Inr 1.98 High 0.89-6 [phone] .11 Inr/Protime 07/03/2017 [facility] Inr 1.68 High 0.89-3 [phone] .11 CBC Auto Diff 06/26/2017 [facility] White Blood 8.1 10^3/uL N 3.5-10 [phone] Count .8 Red Blood Count 4.84 10^6/uL [...] Cells % 0 N Laboratory test 06/26/2017 [facility] TSH (Thyroid 1.88 mcIU/mL N 0.34-5.60 finding [phone] Stim Horm) Comp Metabolic 06/26/2017 [facility] Sodium 139 mmol/L N 133-145 Panel [phone] Potassium 4.9 mmol/L N 3.5-5.0 Chloride 106 [...] 88.6 N >60 Egfr 113.9 N >60 8 Inr/Protime 06/26/2017 [facility] Inr 1.73 High 0.89-1.11 [phone] Inr/Protime 06/20/2017 [facility] Inr 1.77 High 0.89-1.11 [phone] Inr/Protime 06/13/2017 [facility] Inr 1.82 High 0.89-1.11 [phone] Inr/Protime 06/09/2017 [facility] Inr 1.93 High 0.89-1.11 9 [phone] Laboratory test finding 06/07/2017 [facility] Inr/Protime 2.71 High 0.89-1.11 [phone] Urine Micro Inhouse 03/30/2017 In House Ua WBC 2-3 10 Ua RBC 6 Ua Casts - Ua Epi 4-5 Ua Other - Ua Glucose - Ua Bilirubin - Ua Ketones - Ua Specific Roslyn 1.020 Ua Blood - Ua PH 5.0 Ua Protein - Ua Urobilinogen - Ua Nitrite - Ua Leukocytes - Laboratory test 03/24/2017 [facility] TSH (Thyroid 2.70 mcIU/mL N 0.34-5.60 finding [phone] Stim Horm) CBC Auto Diff 02/13/2017 [facility] White Blood 6.7 10^3/uL N 3.5- 10.8 [phone] Count Red Blood Count 5.58 10^6/uL High [...] % 0.2 N Comp Metabolic Panel 02/13/2017 [facility] Sodium 139 mmol/L N 133- 145 [phone] Potassium 4.0 mmol/L N 3.5-5.0 Chloride 106 [...] 88.9 N >60 Egfr 114.3 N >60 11 Laboratory test 02/13/2017 [facility] Magnesium 2.0 mg/dL N 1.9-2.7 12 finding [phone] Lipid Profile 02/13/2017 [facility] Triglycerides 96 mg/dL N 13 (Trig/Chol/HDL) [phone] Cholesterol 166 mg/dL N 14 HDL Cholesterol 42.6 mg/dL N 15 LDL Cholesterol 104 mg/dL N 16 Urine Micro Inhouse 02/12/2015 In House Ua WBC 0-1 Ua RBC 0-3 Ua Casts - Ua Epi 0-1 Ua Other crystals, sediment Ua Glucose - Ua Bilirubin - Ua Ketones - Ua Specific Roslyn 1.020 Ua Blood - Ua PH 6.0 Ua Protein tr Ua Urobilinogen - Ua Nitrite - Ua Leukocytes - Basic Metabolic Panel 07/08/2014 [facility] Sodium 137 mmol/L N 133- 145 [phone] Potassium 4.2 mmol/L N 3.7-5.6 Chloride 106 mmol/L N 101-111 Co2 Carbon Dioxide 24 mmol/L N 22-32 Anion Gap 7 mmol/L N 2-11 Glucose 130 mg/dL High 70-100 Blood Urea Nitrogen 19 mg/dL N 6-24 Creatinine 0.88 mg/dL N 0.67-1.17 BUN/Creatinine Ratio 21.6 High 8-20 Calcium 9.4 mg/dL N 8.6-10.3 Egfr Non- 85.9 N >60 Egfr 110.4 N >60 17 Urine Micro Inhouse 01/24/2014 In House Ua WBC - Ua RBC - Ua Casts - Ua Epi - Ua Other - Ua Glucose - Ua Bilirubin - Ua Ketones - Ua Specific Roslyn 1.020 Ua Blood - Ua PH 5.0 Ua Protein - Ua Urobilinogen - Ua Nitrite - Ua Leukocytes - Laboratory 01/30/2013 [facility] Hepatitis C Nonreactive Nonreactive 18 test finding [phone] Antibody Lipid Profile 01/30/2013 [facility] Triglycerides 104 mg/dL 40-200 (Trig/Chol/HD [phone] L) Cholesterol 186 mg/dL Less than 200 HDL Cholesterol 49 mg/dL 40-60 19 Cholesterol/HDL Ratio 3.8 Average 1-4.44 LDL Cholesterol 116.2 mg/dL High Less Than 100 20 Urine Micro Inhouse 01/18/2013 In House Ua WBC - Ua RBC - Ua Casts - Ua Epi - Ua Other - Ua Glucose - Ua Bilirubin - Ua Ketones - Ua Specific Roslyn 1.025 Ua Blood - Ua PH 6.0 Ua Protein - Ua Urobilinogen - Ua Nitrite - Ua Leukocytes - Comp Metabolic Panel 10/01/2012 [facility] Sodium 141 mmol/L 133- 145 [phone] Potassium 4.1 mmol/L 3.5-5.0 Chloride 107 mmol/L [...] 1.7 1-3 Total Bilirubin 0.5 mg/dL 0.1-1.0 21 Alkaline Phosphatase 34 U/L 30-110 Alt 22 U/L 14-54 Ast 28 U/L 12-42 Egfr Non- 84.2 >60 Egfr 108.2 >60 22 Laboratory test 10/01/2012 [facility] Erythrocyte Sed 7 MM/HR 0-40 23 finding [phone] Rate Heavy Metal Blool 10/01/2012 [facility] Arsenic Not Detected 24 [phone] Lead 1 25 Mercury <1 [address] [facility] [address] [facility] Carlos Guardian First Name Melonie Guardian Last Name Merritt Venous/Capillary Heavy Metals Venous Patient Race CBC Auto Diff 10/01/2012 [facility] White Blood Count 4.7 10^3/uL Low 4.8-10.8 [phone] Red Blood Count 5.14 10^6/uL 4.0-5.4 Hemoglobin [...] 0 Iron & Iron Binding Capacity 10/01/2012 [facility] Iron 60 UG/ML 45- 182 [phone] Unsaturated Iron Binding 389 g/dL Total Iron Binding Capacity 449 g/dL 250-450 Transferrin 321.0 % Iron Saturation 13 % Low 15-55 RPR 10/01/2012 [facility] Syphilis IgG Nonreactive Nonreactive 28 [phone] RPR TNP Nonreactive RPR Titer TNP Pediatric/Maternal NO Laboratory test 10/01/2012 [facility] TSH (Thyroid 1.74 MIU/ML 0.34- 5.60 finding [phone] Stimulating Horm) Vitamin B12 401 pg/mL 180-914 Testosterone Free & 10/01/2012 [facility] Free Testosterone 9.5 ng/dL 9-30 Total [phone] ng/dl Testosterone 397 ng/dL 240-950 29 Cell Morphology 10/01/2012 [facility] RBC Morphology Normal Normal [phone] Urine Micro Inhouse 01/13/2011 In House Ua WBC 0-2 Ua RBC - Ua Casts - Ua Epi 0-1 Ua Other - Ua Glucose - Ua Bilirubin - Ua Ketones - Ua Specific Roslyn 1.020 Ua Blood - Ua PH 5.0 Ua Protein - Ua Urobilinogen - Ua Nitrite - Ua Leukocytes - Laboratory test 02/11/2010 [facility] Surgical <SEE 30 finding [phone] Pathology NOTE> Laboratory test 01/07/2010 In House Occult Blood - neg x3 finding Stool Comp Metabolic 01/07/2010 [facility] Sodium 142 mmol/L 135- Panel [phone] Potassium 4.6 mmol/L 3.5-5.0 Chloride 105 mmol/L 101-111 Co2 (Carbon Dioxide) 27.0 mmol/L 22-32 Anion Gap 10.0 mmol/L 2-11 31 Glucose 83 mg/dL 70-100 32 BUN 16 mg/dL 6-24 Creatinine 1.00 mg/dL 0.50-1.40 One Over Creatinine 1.00 BUN/Creatinine Ratio 16.0 8-20 Calcium 9.5 mg/dL 8.1-9.9 33 Total Protein 6.3 GM/DL 6.2-8.1 Albumin 4.1 GM/DL 3.2-5.2 Globulin 2.2 GM/DL 2-4 Albumin/Globulin Ratio 1.9 1-3 Bilirubin Total 0.5 mg/dL 0.4-1.5 34 Alkaline Phosphatase 37 U/L Low 39-117 Alt (SGPT) 33 U/L 17-63 Ast (Sgot) 28 U/L 12-42 eGFR Non- 80.0 > 60 eGFR 96.7 > 60 35 CBC With Electronic 01/07/2010 [facility] White Blood 6.1 CUMM 4.8- 10.8 Diff [phone] Count Red Cell Count 5.06 CUMM 4.6-6.2 [...] Abs Basophils 0 0-0.2 Laboratory test 09/26/2009 [facility] <SEE 36 finding [phone] Pathology NOTE> Urine Micro 01/01/2009 In House Urine - Inhouse Microscopic Inhouse Ua Inhouse 01/01/2009 In House Ua Glucose - Ua Bilirubin - Ua Ketones - Ua Specific Roslyn 1.030 Ua Blood - Ua PH 5.0 Ua Protein - Ua Urobilinogen - Ua Nitrite - Ua Leukocytes - Comp Metabolic Panel 01/01/2009 [facility] Sodium 139 mmol/L 135- 145 [phone] Potassium 4.3 mmol/L 3.5-5.0 Chloride 107 mmol/L 101-111 Co2 (Carbon Dioxide) 27.0 mmol/L 22-32 Anion Gap 5.0 mmol/L 2-11 37 Glucose 88 mg/dL 70-100 38 BUN 12 mg/dL 6-24 Creatinine 0.90 mg/dL 0.50-1.40 One Over Creatinine 1.10 BUN/Creatinine Ratio 13.3 8-20 Calcium 9.7 mg/dL 8.1-9.9 39 Total Protein 6.4 GM/DL 6.2-8.1 Albumin 4.1 GM/DL 3.2-5.2 Globulin 2.3 GM/DL 2-4 Albumin/Globulin Ratio 1.8 1-3 Bilirubin Total 0.8 mg/dL 0.4-1.5 Alkaline Phosphatase 38 U/L Low 39-117 Alt (SGPT) 55 U/L 17-63 Ast (Sgot) 40 U/L 12-42 CBC With Electronic 01/01/2009 [facility] White Blood 7.0 CUMM 4.8- 10.8 Diff [phone] Count Red Cell Count 5.49 CUMM 4.6-6.2 [...] Abs Basophils 0 0-0.2 Lipid Profile 12/28/2007 [facility] Cholesterol/HDL 4.02 1-4.97 (Trig/Chol/HDL) [phone] Ratio AVERAGE Cholesterol 181 mg/dL Less Than 200 40 Triglyceride 53 mg/dL 40-200 High Density Lipoprotein 45 mg/dL 40-60 Low Density Lipoprotein 125 mg/dL High Less Than 100 41 Laboratory test 12/28/2007 [facility] PSA Screening 1.03 NG/ML 0-4 42 finding [phone] CBC With Manual 12/28/2007 [facility] White Blood 5.4 CUMM 4.8-10.8 Diff [phone] Count Absolute Neutrophil Count 3.7 Anisocytosis SLIGHT [...] 15 % 10.5-15 Comp Metabolic Panel 12/28/2007 [facility] One Over Creatinine 0.90 [phone] Anion Gap 7.0 mmol/L 2-11 43 Albumin/Globulin Ratio 1.7 1-3 Albumin 4.0 GM/DL [...] Creatinine 1.1 mg/dL 0.5-1.4 Laboratory test 06/07/2006 [facility] Crystals Fluid NONE SEEN 44 finding [phone] CBC With Electronic 02/21/2006 [facility] White Blood 5.8 CUMM 4.8- 10.8 Diff [phone] Count Abs Basophils 0 0-0.2 Abs Eosinophils [...] % High 10.5-15 Comp Metabolic Panel 02/21/2006 [facility] One Over Creatinine 1.00 [phone] Anion Gap 8.0 mmol/L 2-11 45 Albumin/Globulin Ratio 1.5 1-3 Albumin 4.2 GM/DL [...] Creatinine 1.0 mg/dL 0.5-1.4 Laboratory test 02/21/2006 [facility] Erythrocyte Sed Rate 1 MM/HR 0 -20 finding [phone] TSH 2.17 MIU/ML 0.34-5.60 Ua Inhouse 02/14/2005 In House Ua Glucose NEG Ua Bilirubin NEG Ua Ketones NEG Ua Specific Roslyn 1.030 Ua Blood NEG Ua PH 5.0 Ua Protein NEG Ua Urobilinogen NEG Ua Nitrite NEG Ua Leukocytes NEG Laboratory test 02/14/2005 [facility] PSA Screening 1.0 NG/ML 0-4 46 finding [phone] Laboratory test 02/14/2005 In House Urine Microscopic NEG finding Inhouse 1 Because ethnic data is not always [...] 5 Kidney failure <15 (or dialysis) 4 SEE RESULT BELOW Name: SABA VELIZ : [address]: Edi Ferreira DO Acct: [id number] Unit: [id number] AGE: 72 Location: [facility] Re05/04/18 SEX: M Status: REG REF SPEC: [id number] JAYCEE: 05/04/18-[address] [facility] [address]: Edi Ferreira DO REQ: [id number] RECD: 05/07/18-1313 STATUS: SOUT _ ORDERED: LEVEL 4 COMMENTS: [id number] FINAL DIAGNOSIS Skin, right arm, excision: -- [...] The specimen is inked, serially sectioned and union representative sections are submitted in one cassette. Signed by and Reported on: Meeta Patterson MD 05/08/18 1456 END OF REPORT DEPARTMENT OF PATHOLOGY, [address] [place] [address] Mil Quintanilla M.D. Director [facility] # [id number] 5 Please note the change in INR reference range effective 17. 6 ORDERED:06/08/17 EXPIRES: 12/09/17 7 ORDERED:06/08/17 EXPIRES: 12/09/17 8 Because ethnic data is not always readily [...] 15-29 5 Kidney failure <15 (or dialysis) 9 Make this a standing order. 10 void, clear, yellow 11 Because ethnic data is not always readily [...] 15-29 5 Kidney failure <15 (or dialysis) 12 FASTING 13 Desirable <150 Borderline high 150-199 High 200-499 Very High >500 14 Desirable <200 Borderline high 200-239 High >239 15 Low <40 Desirable: 40-60 High: >60 16 Desirable: <100 mg/dL Near Optimal: 100-129 mg/dL Borderline High: 130-159 mg/dL High: 160-189 mg/dL Very High: >189 mg/dL 17 Because ethnic data is not always readily [...] 15-29 5 Kidney failure <15 (or dialysis) 18 PT IS FASTING 19 HDL Interpretation: Undesirable: High Risk: Less than 40 MG/DL Desirable: Low Risk: Greater than 60 MG/DL 20 LDL Interpretation: Low Risk Optimal Level: LDL Less than 100 MG/DL Near or Above Optimal: LDL 100-129 MG/DL Borderline High Risk: LDL 130-159 MG/DL High Risk: LDL 160-189 MG/DL Very High Risk: LDL Greater than 189 MG/DL 21 A metabolite of Naproxen, O-desmethylnaproxen, has been shown to interfere with the Jendrassik-Rosa method for measuring total bilirubin. Samples from patients who have taken Naproxen have shown spurious elevation in total bilirubin levels. 22 Because ethnic data is not always readily [...] 15-29 5 Kidney failure <15 (or dialysis) 23 @10/01/12 1355: Cell Morphology added. RFLXG=RBC MORPH. 24 Reference 0-12 25 Reference 0-9 26 Reference 0-9 27 Reference 0.0-4.9 28 Warning: A positive result is not useful for establishing a diagnosis of syphilis. In most situations, such a result may reflect a prior treated infection; a negative result can exclude a diagnosis of syphilis except for incubating or early primary disease. 29 Test Performed by: [address] [address] [place]: Benito Gomez III, M.D. R 30 ---- RUN DATE: 02/15/10 [facility] NMI LIVE PAGE 1 RUN TIME: 1158 Specimen Inquiry RUN USER: INTERFACE -- Name: SABA VELIZ Status: REG REF Re02/11/10 Age/Sex: 64/M Unit#: [id number] Location: [facility] : [birth year] -- Specimen: [id number] [facility] Spec Date: 02/11/10 [facility] Dr: Anjel martinez MD Spec Type: SURGICAL P Received: 02/12/10-1013 Copies to: SPECIMEN RIGHT SHOULDER LESION HISTORY PRE-OP DIAGNOSIS: Neoplasm uncertain CLINICAL INFORMATION: Right shoulder, present for one year, more red/rais ed recently, 2 cm. diameter ovoid, greasy, scaly macule. Slightly raised, removed with curettage GROSS DESCRIPTION Specimen received in formalin labelled Saab Veliz, Skin Right Shoulder, and consists of [...] 02/15/10 1157 -- -- DEPARTMENT OF PATHOLOGY, [address] [place] [address] [facility] Permit #[id number] Mil Quintanilla M.D. Director Pedro Luis Abdi M.D. Foreman Or Supervisor And Operator Dir magaly -- 31 Anion gap measurement may be of limited value in the presence of any alkalosis, especially in a combined acid base disorder. . 32 Note change in reference range as of 07/10/08. The change was based on recommendations from the [place] [employer]. 33 Please note change in reference range effective 08 . 34 A metabolite of Naproxen, O-desmethylnaproxen, has been shown to interfere with the Jendrassik-[place] method for measuring total bilirubin. Samples from patients who have taken Naproxen have shown spurious elevation in total bilirubin levels. 35 Because ethnic data is not always readily [...] 15-29 5 Kidney failure <15 (or dialysis) 36 ---- RUN DATE: 09/30/09 [facility] NMI LIVE PAGE 1 RUN TIME: 1346 Specimen Inquiry RUN USER: INTERFACE -- Name: SABA VELIZ Status: REG REF Re09/26/09 Age/Sex: 64/M Unit#: [id number] Location: [facility] : [birth year] -- Specimen: [id number] Spec Date: 09/26/09 [facility] Dr: Antwon gtz MD Spec Type: [...] 09/30/09 1346 -- -- DEPARTMENT OF PATHOLOGY, [address] [place] [address] [facility] Permit #[id number] Mil Quintanilla M.D. Director Pedro Luis Abdi M.D. Foreman Or Supervisor And Operator Dir magaly -- 37 Anion gap measurement may be of limited value in the presence of any alkalosis, especially in a combined acid base disorder. . 38 Note change in reference range as of 07/10/08. The change was based on recommendations from the [place] [employer]. 39 Please note change in reference range effective 08 . 40 Classification: Desirable . 41 CALCULATED LDL APPROXIMATES THE VALUE OF A DIRECT LDL MEASUREMENT. Classification: Near or above optimal . 42 * SERUM LEVELS OF PSA MEASURED USING THE ALFONSO JEANCARLOS ACCESS HYBRITECH IMMUNOASSAY SHOULD NOT BE INTERPRETED ABSOLUTE EVIDENCE OF THE PRESENCE OR ABSENCE OF DISEASE. THE PSA VALUE SHOULD BE USED IN CONJUNCTION WITH OTHER PERTINENT CLINICAL DIAGNOSTIC PROCEDURES. 43 Anion gap measurement may be of limited value in the presence of any alkalosis, especially in a combined acid base disorder. . 44 JOINT FLUID LEFT KNEE 45 Anion gap measurement may be of limited value in the presence of any alkalosis, especially in a combined acid base disorder. . 46 * SERUM LEVELS OF PSA MEASURED USING THE ALFONSO JEANCARLOS ACCESS HYBRITECH IMMUNOASSAY SHOULD NOT BE INTERPRETED ABSOLUTE EVIDENCE OF THE PRESENCE OR ABSENCE OF DISEASE. THE PSA VALUE SHOULD BE USED IN CONJUNCTION WITH OTHER PERTINENT CLINICAL DIAGNOSTIC PROCEDURES. Procedures Date Code Description Status 05/04/2018 05455 Excise Benign Lesion 2.1-3CM Trunk/Arm/Leg Completed 01/27/2017 85023 ECG Monitor/Review & Interpretation, W/Visual Completed Superimpos Scan 01/27/2017 91179 ECG Monitor/Recording W/Scanning Completed 01/26/2017 79012 ECG Monitor/Review & Interpretation, W/Visual Completed Superimpos Scan 01/26/2017 20357 ECG Monitor/Recording W/Scanning Completed 01/26/2017 25507 Electrocardiogram Complete Completed 07/02/2015 12474 Removal Of Foreign Body From Ear Completed 07/03/2014 34066 Electrocardiogram Complete Completed 02/14/2012 [id number] Colonoscopy Completed 01/17/2012 43766 Remove Impact Cerumen Requiring Instrument, Unilateral Completed 01/13/2011 87210 Pure Tone, Threshold Completed 02/11/2010 89744 Biopsy Skin Lesion Single Completed 09/26/2009 93727 Shave Skin Lesion .6-1CM Trunk/Arm/Leg Completed 07/31/2009 0 Payment Completed 01/26/2009 0 Payment Completed 01/29/2008 0 Payment Completed 06/08/2006 74466 X-Ray Knee, Complete Completed 06/07/2006 56602 X-Ray Knee,Ap&Lateral Oblique Views Completed 06/07/2006 17186 Inject/Drain Joint/Bursa Major Completed 04/27/2006 07300 Sigmoidoscopy Diagnostic Completed 04/29/2005 57130 I & D Abscess Simple Completed 04/25/2005 0 Payment Completed 02/14/2005 28719 Electrocardiogram Complete Completed 12/27/2004 0 Payment Completed 11/24/2004 61313 X-Ray Chest Two Views Completed Encounters Type Date Location Provider Dx Diagnosis Office Visit 04/23/2019 1:30p Main Office Edi Ferreira D.O. M54.2 Cervicalgia I34.1 Nonrheumatic mitral (valve) prolapse F52.21 Male erectile disorder G47.00 Insomnia, unspecified Z79.01 manager intermediate (current) use of anticoagulants M25.512 Pain in left shoulder Office Visit 04/09/2019 9:15a Main Office Edi Ferreira I34.1 Nonrheumatic mitral D.O. (valve) prolapse F52.21 Male erectile disorder G47.00 Insomnia, unspecified Z79.01 skilled nursing (current) use of anticoagulants Z00.00 Encntr for [...] unspecified I34.1 Nonrheumatic mitral (valve) prolapse Z79.01 skilled nursing (current) use of anticoagulants Z00.01 Encounter for general adult medical exam w abnormal findings F52.21 Male erectile disorder Z71.89 Other specified counseling Office Visit 08/31/2017 10:00a Main Office Edi Ferreira G47.00 Insomnia , D.O. 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 (valve) prolapse Z51.81 Encounter for therapeutic drug level monitoring Z79.01 skilled nursing (current) use of anticoagulants Office Visit 03/30/2017 [...] Psychosexual Dysfunction W/ Inhibited Sexual Excitement v06.1 Stmdxieogv-Qhorvoj-Kyqgszyn Combined (DTaP) V07.2 Prophylactic Immunotherapy Office Visit [...] Office Visit 10/15/2012 3:15p Main Office Anjel Reyes 780.93 Memory Loss M.D. 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 Fatigue Other 302.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 W/ Inhibited [...] Main Office Anjel Reyes, 706.2 Sebaceous Cyst M.D. 302.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 W/ Inhibited Sexual [...] Office Visit 11/24/2004 11:15a Main Office Anjel Reyes 466.0 Bronchitis Acute M.DJojo 733.13 FX Pathologic Vertebrae Plan of Treatment Future Appointment(s):04/14/2020 9:15 am - Edi Ferreira D.O. at Main [id number]/29/2019 - Edi Ferreira D.O.M54.2 CervicalgiaNew Xrays:X-Ray, Cervical Spine Min 4 Views, Ap, Lat, & Both Oblique, Ordered: Follow up:as [id number] Nonrheumatic mitral (valve) [id number] Male erectile [id number] Low back painR50.9 Fever, [id number] Cramp and spasm
[2019-05-15] MEDS ORDERED: NS 0.9% 1000 ML** 1,000 ML IV.FLUID IV ONE (12:35)
--- NOTE | 2019-05-15 13:07 | ED ---
Lower Extremity - HPI Summary HPI Summary: This pt is a 73 y/o M presenting to [facility] with his son and with a CC of lower extremity pain. The pt states that the symptoms began on 04/15 with a stiff neck. The pain soon then began traveling down his body and is currently making his L leg swollen and painful. The pain also migrated from his neck, to his ribs, abdomen, and low back throughout the previous month. He states that he has received multiple blood works and lymes disease tests from Dr. Ferreira starting April 29 after the symptoms persisted. The tests showed that his negative for lymes disease. He denies any fevers, headaches, diaphoresis, chills , dysuria, rashes, and weakness. He has no aggravating or alleviating symptoms. - History of Current Complaint Chief Complaint: EDExtremityLower Stated Complaint: KNEE SWELLING AND PAIN Time Seen by Provider: 05/15/19 12:25 Hx Obtained From: Patient Mechanism Of Injury: Unknown Onset of Pain: Immediate, Days - since 04/15 Onset/Duration: Still Present Severity Initially: Moderate Severity Currently: Moderate Pain Intensity: 2 Pain Scale Used: 0-10 Numeric Timing: Constant, Lasting Weeks Location: Other - pain started in neck, then travelded down his body to his LE Associated Signs And Symptoms: Positive: Negative - fevers, headaches, diaphoresis, chills, dysuria, rashes, and weakness., Swelling - L foot, Abdominal Pain, Knee Pain, Other - POSITIVE: chest pain, L and R leg pain. Negative: Fever, Weakness - Allergies/Home Medications Allergies/Adverse Reactions: Allergies Allergy/AdvReac Type Severity Reaction Status Date / Time No Known Allergies Allergy Verified 05/15/19 12:22 PMH/Surg Hx/FS Hx/Imm Hx Previously Healthy: No Endocrine/Hematology History: Denies: Hx Diabetes, Hx Thyroid Disease Cardiovascular History: Reports: Other Cardiovascular Problems/Disorders - periodic arrhythmia, MD is aware Denies: Hx Hypertension Respiratory History: Denies: Hx Asthma, Hx Chronic Obstructive Pulmonary Disease (COPD) GI History: Denies: Hx Ulcer Musculoskeletal History: Reports: Hx Arthritis - knees Sensory History: Reports: Hx Contacts or Glasses - GLASSES reading and driving, Hx Hearing Aid - [facility] History: Reports: Hx Contacts or Glasses - GLASSES reading and driving Neurological History: Reports: Hx Nerve Disease - LEFT FACIAL PARALYSIS, Other Neuro Impairments/Disorders - hx of shingles late summer/early fall 2013 Psychiatric History: Reports: Hx Anxiety - in the past, Hx Depression - in the past - Surgical History Surgery Procedure, Year, and Place: 30 YRS AGO, RIGHT LITTLE TOE, [facility]. 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 Hx Anesthesia Reactions: No Infectious Disease History: No Infectious Disease History: Denies: Hx Clostridium Difficile, Hx Hepatitis, Hx Human Immunodeficiency Virus (HIV), Hx of Known/Suspected MRSA, Hx Shingles, Hx Tuberculosis, Hx Known/ Suspected VRE, Hx Known/Suspected VRSA, History Other Infectious Disease, Traveled Outside the [place] in Last 30 Days - Family History Known Family History: Positive: Hypertension - Social History Alcohol Use: Daily Alcohol Amount: 1-2 drinks a day Hx Substance Use: No Substance Use Type: Reports: None Hx Tobacco Use: No Smoking Status (MU): Never Smoked Tobacco Have You Smoked in the Last Year: No Review of Systems Negative: Fever, Chills, Skin Diaphoresis Positive: Chest Pain - Rib pain Positive: Abdominal Pain Genitourinary: Negative Positive: Other - back pain, neck pain Negative: Rash Negative: Headache All Other Systems Reviewed And Are Negative: Yes Physical Exam - Summary Physical Exam Summary: Appearance: Well-appearing, Well-nourished, lying in bed comfortably Skin: Warm, dry, no obvious rash, no skin break down or sign of infection Eyes: sclera anicteric, no conjunctival pallor ENT: mucous membranes moist, pharynx appears normal Neck: Supple, nontender Respiratory: Clear to auscultation, no signs of respiratory distress Cardiovascular: Normal S1, S2. No murmurs. Normal distal pulses in tibial and radial bilaterally. Abdomen: Soft, nontender, normal active bowel sounds present Musculoskeletal: Normal, Strength/ROM Intact, swelling and erythema profusely from just below the L knee to the foot, No arthritis Neurological: A&Ox3, awake and alert, mentation is normal, speech is fluent and appropriate, dense L sided facial paralysis which family says is due to trauma Psychiatric: affect is normal, does not appear anxious or depressed Triage Information Reviewed: Yes Vital Signs On Initial Exam: Initial Vitals Temp Pulse Resp BP Pulse Ox 100.2 F 80 16 102/80 96 05/15/19 12:20 05/15/19 12:20 05/15/19 12:20 05/15/19 12:20 05/15/19 12:20 Vital Signs Reviewed: Yes Diagnostics - Vital Signs Vital Signs Temp Pulse Resp BP Pulse Ox 05/15/19 12:20 100.2 F 80 16 102/80 96 - Laboratory Result Diagrams: 05/16/19 05:21 05/16/19 05:21 Lab Statement: Any lab studies that have been ordered have been reviewed, and results considered in the medical decision making process. - Radiology ankle X-Ray Radiology Interpretation Completed By: Radiologist Summary of Radiographic Findings: OSTEOARTHRITIS. PERIPHERAL ARTERIAL DISEASE. NO ACUTE OSSEOUS INJURY. IF SYMPTOMS PERSIST, RECOMMEND REPEAT IMAGING. ED physician has reviewed this report. knee x-ray Radiology Interpretation Completed By: Radiologist Summary of Radiographic Findings: 1. OSTEOARTHRITIS. 2. CHONDROCALCINOSIS. 3. PERIPHERAL ARTERIAL DISEASE. 4. NO ACUTE OSSEOUS INJURY. IF SYMPTOMS PERSIST, RECOMMEND REPEAT IMAGING. ED physician has reviewed this report. - EKG 1242 Cardiac Rate: NL - 77 EKG Rhythm: Sinus Rhythm Summary of EKG Findings: NSR at 77 BPM with a LBBB. Interpreted by Dr. Kinsey at 1247 05/15/19. Lower Extremity Course/Dx - Course Course Of Treatment: This pt is a 73 y/o M presenting to [facility] with his son and with a CC of lower extremity pain. The pt states that the symptoms began on 04/15 with a stiff neck. The pain soon then began traveling down his body and is currently making his L leg swollen and painful. The pt has a PE which shows dense L sided facial paralysis which family says is due to trauma, swelling and erythema profusely from just below the L knee to the foot, no skin break down or sign of infection, No arthritis, and good pulses. His lab values show a C-reactive protein abnormality. His EKG shows a NSR at 77 BPM with a LBBB. His ankle x-ray shows OSTEOARTHRITIS. PERIPHERAL ARTERIAL DISEASE. NO ACUTE OSSEOUS INJURY. IF SYMPTOMS PERSIST, RECOMMEND REPEAT IMAGING. His knee x -ray shows 1. OSTEOARTHRITIS. 2. CHONDROCALCINOSIS. 3. PERIPHERAL ARTERIAL DISEASE. 4. NO ACUTE OSSEOUS INJURY. Dr. Ferreira called at 1425 to discuss the pt's case. He agrees that the pt should be admitted for further evaluation and observation. Dr. Schaefer, hospitalist, will be contacted to evaluate the pt for admission. Dr. Schaefer was contacted at 1455 and accepts the pt for admission. - Diagnoses Provider Diagnoses: Cellulitis of left leg - Physician Notifications Discussed Care Of Patient With: Yolanda Schaefer Time Discussed With Above Provider: 14:55 Instructed by Provider To: Admit As Inpatient Discharge - Sign-Out/Discharge Documenting (check all that apply): Patient Departure - admitted Patient Received Moderate/Deep Sedation with Procedure: No - Discharge Plan Condition: Stable Disposition: ADMITTED TO [facility] - Billing Disposition and Condition Condition: STABLE Disposition: Admitted to [facility] - Attestation Statements Document Initiated by Scribe: Yes Documenting Scribe: Crow French Provider For Whom Nathan is Documenting (Include Credential): Omid Kinsey MD Scribe Attestation: Crow Ward, scribed for Omid Kinsey MD on 05/17/19 at 0530. Scribe Documentation Reviewed: Yes Provider Attestation: The documentation as recorded by the Crow barnes accurately reflects the service I personally performed and the decisions made by Omid rodriguez MD Status of Scribjason Document: Viewed Consult Consult: Dr. Ferreira called at 1425 to discuss the pt's case. He agrees that the pt should be admitted for further evaluation and observation. Dr. Schaefer, hospitalist, will be contacted to evaluate the pt for admission. Dr. Schaefer was contacted at 1455 and accepts the pt for admission.
[2019-05-15 13:12] LABS: ABS Basophils 0.1 10^3/ul (0-0.2); ABS Lymphocytes 1.8 10^3/ul (1.0-4.8); ABS Monocytes 1.3 10^3/ul (0-0.8); Eosinophil % 0.2 %; Hematocrit 43 % (42-52); Hemoglobin 14.2 g/dL (14.0-18.0); Lymphocyte % 14.5 %; Mean Corpuscular HGB Conc 33 g/dL (31-36); Mean Corpuscular Hemoglobin 29 pg (27-31); Mean Corpuscular Volume 87 fL (80-94); Mean Platelet Volume 6.4 fL (7.4-10.4); Platelet Count 442 10^3/uL (150-450); Red Blood Count 4.93 10^6 /uL (4.18-5.48); Red Cell Distribution Width 13 % (10-15); White Blood Count 12.2 10^3/uL (3.5-10.8)
[2019-05-15 13:29] LABS: Activated Partial Thrombo Time 39.3 seconds (26.0-38.0); INR 1.75 (0.82-1.09)
[2019-05-15 13:33] LABS: Albumin 3.6 g/dL (3.2-5.2); BUN/Creatinine Ratio 19.4 (8-20); C Reactive Protein 96.35 mg/L (<8.01); Calcium 9.6 mg/dL (8.6-10.3); EGFR African American 96.4 (>60); EGFR Non-African American 79.6 (>60); Globulin 3.5 g/dL (2-4); Potassium 4.3 mmol/L (3.5-5.0); Total Bilirubin 0.6 mg/dL (0.2-1.0); Total Protein 7.1 g/dL (6.4-8.9)
[2019-05-15] MEDS ORDERED: Acetaminophen TAB* 325 MG PO PRN (16:30)
[2019-05-15] MEDS ORDERED: Ketorolac INJ* 15 MG/ML 1 ML VIAL IV PUSH PRN (16:46)
[2019-05-15] MEDS ORDERED: Lidocaine 2.5%/Prilocain 2.5%* 5 GM TUBE ONE (17:43)
[2019-05-15 18:17] LABS: Body Fluid Source Synovial Fluid
--- NOTE | 2019-05-15 18:31 | UC ---
Knee Pain HPI - HPI Summary HPI Summary: Oligoarticular joint pain - History of Current Complaint Chief Complaint: EDExtremityLower Stated Complaint: KNEE SWELLING AND PAIN Time Seen by Provider: 05/15/19 12:25 Hx Obtained From: Patient Onset/Duration: Lasting Weeks Severity Initially: Moderate Severity Currently: Moderate Location Of Injury: Right and left knee and left ankle Pain Intensity: 2 Pain Scale Used: 0-10 Numeric Aggravating Factor(s): Movement Associated Signs And Symptoms: Positive: Swelling - Patient presented with several week history of joint pain. He has been treated presumptively for Lyme disease. Currently he complains of right knee pain and swelling and left knee pain and swelling (which is improved) and left ankle swelling. Able to Bear Weight: No - Risk Factors Septic Arthritis Risk Factor: Negative - Allergies/Home Medications Allergies/Adverse Reactions: Allergies Allergy/AdvReac Type Severity Reaction Status Date / Time No Known Allergies Allergy Verified 05/15/19 12:22 Home Medications: Home Medications Apixaban* [Eliquis*] 5 mg PO BID 05/15/19 [History Confirmed 05/15/19] Ascorbic Acid TAB* [Vitamin C TAB*] 500 mg PO BID 05/15/19 [History Confirmed 05/15/19] Cyclobenzaprine (NF) [Cyclobenzaprine 5 MG (NF)] 5 mg PO QPM PRN 05/15/19 [ History Confirmed 05/15/19] DOXYcycline CAP(*) [DOXYcycline 100MG CAP(*)] 100 mg PO BID 05/15/19 [History Confirmed 05/15/19] Glucosam/Chond/MSM/[place]/Hyal [Tgt Advanced Glucosamine/] 1 tab PO BID 05/15/19 [History Confirmed 05/15/19] Glycerin/Propylene Glycol [Soothe Lubricant Eye Drops] 1 oint LEFT EYE BEDTIME 05/15/19 [History Confirmed 05/15/19] Magnesium Oxide TAB* [MagOx 400 TAB*] 400 mg PO DAILY 05/15/19 [History Confirmed 05/15/19] Metoprolol Succinate XL TAB* [Toprol XL TAB*] 12.5 mg PO DAILY 05/15/19 [ History Confirmed 05/15/19] Mineral Oil, Light/Mineral Oil [Soothe Xp/Xtra Protection] 2 drop LEFT EYE BID 05/15/19 [History Confirmed 05/15/19] Multivitamins/Minerals TAB* [Theragran/minerals TAB*] 1 tab PO DAILY 05/15/19 [ History Confirmed 05/15/19] Sacubitril/Valsartan (NF) [Entresto (NF)] 0.5 tab PO DAILY 05/15/19 [ History Confirmed 05/15/19] Sotalol TAB* [Betapace 80 MG TAB*] 40 mg PO BID 05/15/19 [History Confirmed ] Tadalafil [Cialis] 20 mg PO DAILY PRN 05/15/19 [History Confirmed 05/15/19] traMADol TAB* [Ultram*] 50 mg PO Q6HR PRN 05/15/19 [History Confirmed 05/15/19] PMH/Surg Hx/FS Hx/Imm Hx - Additional Past Medical History Additional PMH: cardiomyopathy Previously Healthy: No Cardiovascular History: Cardiac Disease - Surgical History Surgical History: Yes Surgery Procedure, Year, and Place: 30 YRS AGO, RIGHT LITTLE TOE, [facility]. 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 - Family History Known Family History: Positive: Hypertension - Social History Alcohol Use: Daily Alcohol Amount: 1-2 drinks a day Substance Use Type: None Smoking Status (MU): Never Smoked Tobacco Have You Smoked in the Last Year: No Review of Systems All Other Systems Reviewed And Are Negative: Yes Physical Exam Triage Information Reviewed: Yes Appearance: Well-Appearing - Right knee with 2 plus synovitis and left knee with minimal synovitis and left ankle with 2 plus synovitis Vital Signs: Initial Vital Signs Temp 100.2 F 05/15/19 12:20 Pulse 80 05/15/19 12:20 Resp 16 05/15/19 12:20 BP 102/80 05/15/19 12:20 Pulse Ox 96 05/15/19 12:20 Vital Signs Reviewed: Yes ENT: Positive: Normal ENT inspection Respiratory: Positive: Lungs clear Cardiovascular: Positive: RRR Abdomen Description: Positive: Nontender Musculoskeletal: Positive: ROM Limited @ - synovitis right knee and left ankle and right ankle and tenderness is present Diagnostics - Radiology ankle X-Ray Radiology Interpretation Completed By: Radiologist Summary of Radiographic Findings: OSTEOARTHRITIS. PERIPHERAL ARTERIAL DISEASE. NO ACUTE OSSEOUS INJURY. IF SYMPTOMS PERSIST, RECOMMEND REPEAT IMAGING. ED physician has reviewed this report. knee x-ray Radiology Interpretation Completed By: Radiologist Summary of Radiographic Findings: 1. OSTEOARTHRITIS. 2. CHONDROCALCINOSIS. 3. PERIPHERAL ARTERIAL DISEASE. 4. NO ACUTE OSSEOUS INJURY. IF SYMPTOMS PERSIST, RECOMMEND REPEAT IMAGING. ED physician has reviewed this report. - EKG Cardiac Rate: NL Knee Pain Course/Dx - Course Course Of Treatment: Mr. Bang has oligoarticular joint pain and inflammation. He has very high inflammatory markers. He may have a reactive arthropathy. I advised a diagnostic aspiration of the right knee. He consented after potential risks and benefits were explained. The right lateral knee was prepped with betadine times 3 and a 22 g needle was inserted after topical anesthesia was applied. Approximately 20 cc of grade 2 inflammatory removed from the right knee. Sent for cell count, culture gram stain and we also asked the lab to check for crystals as well Continue Doxycycline for now. Would re check Lyme serologies and AALIYAH - Differential Dx/Diagnosis Provider Diagnosis: Cellulitis of left leg - Physician Notifications Time Discussed With Above Provider: 14:55 Instructed by Provider To: Admit As Inpatient Discharge - Sign-Out/Discharge Documenting (check all that apply): Patient Departure - Patient admitted - Discharge Plan Condition: Stable Disposition: ADMITTED TO [facility] - Billing Disposition and Condition Condition: STABLE Disposition: Admitted to [facility]
[2019-05-15 18:59] LABS: Body Fluid Mono 8 %
--- NOTE | 2019-05-15 19:32 | HP ---
ATTENDING ADDENDUM NOW INCLUDED ON THIS REPORT CC: Dr. Ferreira; Dr. Harrison * HISTORY AND PHYSICAL: DATE OF ADMISSION: 05/15/19 PRIMARY CARE PROVIDER: Dr. Ferreira. HAND DECORATOR: Dr. Harrison. ATTENDING PHYSICIAN: Dr. España * (dictated by MOISES Scott). CHIEF COMPLAINT: Joint pain and swelling. HISTORY OF PRESENT ILLNESS/HOSPITAL COURSE: Mr. Bang is a 73-year-old male with past medical history of AFib, cardiomyopathy, and congenital L facial paralysis who presented to the ER today with complaints of pain and swelling in the left ankle and knee. The patient notes that approximately 3 weeks ago, he had a sore posterior neck. He notes that he strained this area while weed whacking. He went to see his primary care provider. He was given tramadol and cyclobenzaprine, which he takes occasionally. On 04/29/19, he noted fatigue, chills, muscle aches, and right-sided low back pain. He went to see his primary care provider, who noted that his inflammatory markers were up. Tick borne panel was drawn, as well, and was negative. He was prescribed and started doxycycline x3 weeks for possible Lyme disease as he noted a history of 2 tick bites the week of 04/02/19. He notes that he and his perform tick checks twice daily and he believes that they were not attached for a more than 24 hours. They did not lead to any rash, and he has noticed no rash throughout this event. Approximately 1 week later, his left knee started to swell. Days later, the swelling extended to the left ankle and foot. He notes that he then had left thigh pain and swelling. On the day he presents to the ER, he notes right knee and ankle pain with slight swelling. He notes that he has difficulty with walking due to the pain in both lower extremities. He continues to have swelling in the left knee, ankle, and foot. The patient states that in the beginning he had headache and fatigue, which have both been resolved. He notes fever x1 up to 100.4. He notes muscle aches in the left hip , which is also gone. He is positive for joint pain in the left knee, ankle, and the right knee. No upper extremity concerns. He notes that he went to the [facility] in February. He had a root canal approximately 1 month ago. 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 He uses knee pads and does not spend an extended amount of time kneeling. Again, he does tick checks twice daily. He denies chest pain, shortness of breath, fever. He is positive for occasional chills. He denies rash. He denies cough, abdominal pain, nausea , vomiting, diarrhea, or constipation. He denies pain in the upper extremities. While in the emergency department, the patient received a full workup, which includes 2.3 L IV fluid. Left knee and left ankle x-rays which show osteoarthritis. Doppler of the left lower extremity reveals no DVT, positive for Thomas cyst. The patient's blood work revealed leukocytosis, elevated CRP, and fever. Hospitalist team was asked to evaluate the patient for admission. PAST MEDICAL HISTORY: 1. Cardiomyopathy, EF 40% to 45%. 2. Atrial fibrillation. 3. Congenital left-sided facial nerve palsy. 4. Mitral valve repair. PAST SURGICAL HISTORY: Open heart mitral valve repair, hernia, left eyelid, root canal approximately 1 month ago. HOME MEDICATIONS: 1. Apixaban 5 mg p.o. b.i.d. 2. Ascorbic acid 500 mg p.o. b.i.d. 3. Cyclobenzaprine 5 mg p.o. q.p.m. p.r.n. for pain. 4. Doxycycline 100 mg p.o. b.i.d. 5. Glucosamine/chondroitin/MSM/boron/hyaluronate 1 tab p.o. b.i.d. 6. Soothe lubricant eye drops 1 ointment to left eye at bedtime. 7. Magnesium oxide 400 mg p.o. daily. 8. Metoprolol succinate XL 12.5 mg p.o. daily. 9. Soothe XP Xtra Protection 2 drops to the left eye b.i.d. 10. Multivitamin/mineral 1 tab p.o. daily. 11. Entresto 24, 0.5 tab p.o. daily. 12. Sotalol 40 mg p.o. b.i.d. 13. Cialis 20 mg p.o. daily p.r.n. 14. Tramadol 50 mg p.o. q.6 hours p.r.n. DRUG ALLERGIES: No known drug allergies. FAMILY HISTORY: Positive for heart disease, colon cancer, bladder cancer. Negative for diabetes mellitus, CVA, autoimmune. SOCIAL HISTORY: The patient does not and has never used tobacco. He quit drinking alcohol approximately 4 months ago. He lives with his . He is retired. 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 Currently, he gardens as a hobby. In the event that he is unable to make his own medical decisions, he has appointed his , Melonie Bang, to be his surrogate decision maker. REVIEW OF SYSTEMS: A 10-point review of systems was performed and all the pertinent positives and negatives are in the HPI. All other systems are negative. PHYSICAL EXAMINATION GENERAL: Mr. Bang is a 73-year-old male who is well developed, well nourished. He appears somewhat younger than his stated age. He is sitting up in bed. He is in no acute distress. VITAL SIGNS: Temperature 100.3 temporal, heart rate 80, respiratory rate 16, oxygen saturation 96% on room air, blood pressure 102/80. HEENT: Left facial paralysis noted, which is congenital. Extraocular movements intact. Hearing grossly intact. Oral mucous membranes are moist. There are no lesions. Oropharynx is clear. NECK: Full range of motion. No lymphadenopathy. RESPIRATORY: Symmetrical chest expansion without use of accessory muscles. Lungs are clear to auscultation bilaterally without rhonchi, wheezes, or rubs. CARDIOVASCULAR: Regular rate and rhythm with S1, S2 present without murmurs, rubs, clicks, or gallops. ABDOMEN: Flat. Bowel sounds noted in all quadrants. The abdomen is soft. There is no tenderness to palpation. The patient notes a tick bit him on the left lateral flank. There is a small area of erythema without any EM rash or other rash. The erythematous area is less than 1 cm in diameter. EXTREMITIES: Skin is warm and smooth bilaterally. There is no clubbing or cyanosis. The left knee is tender to palpation with an area of erythema over the patella. There is no edema or warmth. The left ankle is erythematous over the medial and lateral malleoli. There are faint petechiae from the midfoot to the mid calf; 1+ pitting edema to the pedal and lower leg. There is medial and lateral malleoli erythema. The patient is able to move the joint, but it is painful. SKIN: Faint petechial rash from L midfoot to mid calf. Without rash elsewhere. NEURO: Patient is awake. He is alert and oriented x3. Cranial nerves grossly intact with upper and lower extremity strength equal. DIAGNOSTIC STUDIES/LAB DATA: Left knee, left ankle x-ray revealed osteoarthritis and PAD. Doppler of left lower extremity reveals no DVT, positive for Thomas cyst. Laboratory data: WBC 12.2, CRP 96.35. ASSESSMENT AND PLAN: Mr. Bang is a 73-year-old male with a past medical history of cardiomyopathy, atrial fibrillation, mitral valve repair, Kincaid palsy who presents to the ER today with complaints of left knee and ankle pain and left ankle swelling. The patient will be admitted on observation for: 1. Left-sided joint swelling. The patient has an elevated CRP and leukocytosis. X-ray reveals osteoarthritis in the left ankle and knee. Doppler negative for DVT. This does not appear to be a cellulitis. The patient does have a history of tick bites, which he believes were removed within 24 hours of attachment. He has been placed on Doxycycline by his primary care provider. There has been no associated rash with the bites. Currently pending urinalysis , blood cultures. ER sent serology for Lyme screen. Differentials include Lyme , reactive arthritis. Dr. Pereira has been consulted. Doxycycline has been continued. The patient will be placed on Toradol 15 q.6 hours p.r.n. pain x4 doses. 2. Atrial fibrillation. Continue home medications metoprolol, apixaban, sotalol. 3. DVT prophylaxis. According to the DVT Risk Assessment, the patient scores 2 and is at moderate risk for DVT. He will continue his home apixaban. 4. Code status. Full code. TIME SPENT: Approximately 60 minutes were spent on this admission, greater than half of that time was spent with the patient and his obtaining history , performing physical, and reviewing the plan of care. The case has been reviewed with my attending, Dr. España, who is in agreement with the plan of care. MOISES ELMORE ADDENDUM: The case was discussed and reviewed with MOISES Scott. PRIMARY CARE PROVIDER: Dr. Ferreira. Mr. Bang is a 73-year-old male with a past medical history of cardiomyopathy, paroxysmal atrial fibrillation, mitral regurgitation, status post mitral valve repair, depression, left-sided facial paralysis that happened during , who presents to the emergency room with complaints of joint pain and left leg edema. The patient states he was in his usual state of health until the end of March when he started to have some malaise, neck pain, back pain. He was seen by his primary care provider and was prescribed tramadol with no significant improvement. He states that this has progressed and then he developed left knee pain that was followed by left ankle pain. This persisted, he returned to his primary care provider and CRP was elevated at 139. There was concern for possible Lyme disease as he had some ticks on himself before and he was started on doxycycline empirically. He had Lyme and other tick-borne pathology serologies done on 05/01/19 and they were negative. The patient states that it has been very difficult for him to walk and he is now using a walker. He developed right knee pain and also right Achilles tendon pain and edema. He went to his primary care provider, had uric acid checked and that was normal, and presented to the emergency room today as the swelling and the pain have progressed. I believe his presentation is compatible with reactive arthritis considering his oligoarthritis, Achilles tendon enthesopathy. He did travel to the [facility] in January, but does not remember any specific infections. Differential would include infection that could still be Lyme disease. The patient will be admitted for further evaluation and management. He will be continued on doxycycline and we are going to check rheumatoid factor and AALIYAH. I will contact Rheumatology to assist on his workup. For now, he received low dose Toradol to see if he has any symptomatic relief as he states that tramadol did not help. We are going to limit the Toradol use as he has a history of cardiomyopathy and is on anticoagulation. Eventually depending on his workup, he may require steroids. HERMILO España MD [id number]/CPS #: [id number] Zaida [id number]/CPS #: [id number] EILEEN
[2019-05-15] MEDS ORDERED: GLYCERIN LEFT EYE SCH (21:00)
[2019-05-15] MEDS ORDERED: PROPYLENE GLYCOL LEFT EYE SCH (21:00)
--- NOTE | 2019-05-15 21:28 | HP ---
CC: Dr. Ferreira * ADDENDUM: The case was discussed and reviewed with MOISES Scott. PRIMARY CARE PROVIDER: Dr. Ferreira. Mr. Bang is a 73-year-old male with a past medical history of cardiomyopathy, paroxysmal atrial fibrillation, mitral regurgitation, status post mitral valve repair, depression, left-sided facial paralysis that happened during , who presents to the emergency room with complaints of joint pain and left leg edema. The patient states he was in his usual state of health until the end of March when he started to have some malaise, neck pain, back pain. He was seen by his primary care provider and was prescribed tramadol with no significant improvement. He states that this has progressed and then he developed left knee pain that was followed by left ankle pain. This persisted, he returned to his primary care provider and CRP was elevated at 139. There was concern for possible Lyme disease as he had some ticks on himself before and he was started on doxycycline empirically. He had Lyme and other tick-borne pathology serologies done on 05/01/19 and they were negative. The patient states that it has been very difficult for him to walk and he is now using a walker. He developed right knee pain and also right Achilles tendon pain and edema. He went to his primary care provider, had uric acid checked and that was normal, and presented to the emergency room today as the swelling and the pain have progressed. I believe his presentation is compatible with reactive arthritis considering his oligoarthritis, Achilles tendon enthesopathy. He did travel to the [facility] in January, but does not remember any specific infections. Differential would include infection that could still be Lyme disease. The patient will be admitted for further evaluation and management. He will be continued on doxycycline and we are going to check rheumatoid factor and AALIYAH. I will contact Rheumatology to assist on his workup. For now, he received low dose Toradol to see if he has any symptomatic relief as he states that tramadol did not help. We are going to limit the Toradol use as he has a history of cardiomyopathy and is on anticoagulation. Eventually depending on his workup, he may require steroids. [id number]/[facility] #: [id number] [facility] MEDICAL CENTERAlexus
[2019-05-15] MEDS: DOXYcycline CAP(*) 100 MG PO SCH (21:39)
[2019-05-15] MEDS: Ascorbic Acid TAB* 500 MG PO SCH (21:39)
[2019-05-15] MEDS: Apixaban* 5 MG TAB PO SCH (21:39)
[2019-05-15] MEDS: GLUCOSAMINE PO SCH (21:40)
[2019-05-15] MEDS: METHYLSULFONYLMETHANE PO SCH (21:40)
[2019-05-15] MEDS: CHONDROITIN PO SCH (21:40)
[2019-05-15] MEDS: HYALURONIC ACID PO SCH (21:40)
[2019-05-15] MEDS: BORON PO SCH (21:40)
[2019-05-15] MEDS: Sotalol TAB* 80 MG PO SCH (22:25)
[2019-05-15] MEDS: Metoprolol Succinate XL TAB* 25 MG PO SCH (22:25)
[2019-05-16] MEDS: Melatonin 3 MG TAB PO SCH ×2 (00:17→21:08)
--- NOTE | 2019-05-16 02:11 | CONS ---
CONSULTATION REPORT: DATE OF CONSULT: 05/15/19 CONSULTING PHYSICIAN: Dr. Saldana. PRIMARY CARE DOCTOR: Dr. Ferreira. REASON FOR CONSULT: Oligoarticular joint pain and inflammation. HISTORY OF PRESENT ILLNESS: Mr. Bang is a pleasant 73-year-old male with a longstanding history of coronary artery disease with no prior history of gout, although he does recall 1 episode of knee pain after a cardiac procedure. He also has underlying medical conditions of cardiomyopathy and mitral regurgitation. Of note, he was in his usual state of health and doing fairly well until last month when after a tick bite, while gardening, he began to have some generalized joint pain, including malaise and back and upper neck pain. His back and neck pain gradually resolved and improved, but he had progressive joint pain as well as inflammation and swelling of his joints, especially in the lower extremity. Initially, he was prescribed tramadol with no significant improvement. Again, however, his joint pain proceeded and progressed into actual swelling of the joint, which was also followed by left ankle pain. This involved primarily the left knee and left ankle. Workup revealed an elevated C- reactive protein, which was markedly elevated and there was a concern for possible Lyme disease as he had some tick exposure. He was placed on doxycycline empirically and indeed while his left ankle remains very swollen and restricted, this somewhat improved compared to 2 days ago. He has had serologies done on 05/01/19, which reportedly were negative. However, his symptoms progressed, especially in his knee and his ankle region to the point that it was difficult to mobilize and he was using a walker. He also has over the last day developed some right knee pain and swelling as well as some discomfort in the right Achilles region and edema. He had a uric acid checked, which was normal, but he continued to have symptoms, so he presented to the emergency room, especially given his polyarticular joint pain and swelling. PAST MEDICAL HISTORY: Includes: 1. Cardiomyopathy. 2. Paroxysmal atrial fibrillation. 3. Mitral regurgitation. 4. Depression. 5. History of left-sided facial paralysis that happened during . PAST SURGICAL HISTORY: Includes a mitral valve repair. Past surgical history is also notable for open heart mitral valve repair, hernia, left eyelid surgery , and a root canal 1 month ago. In terms of his hospital course, he received Toradol and he was continued on doxycycline. In terms of his antibiotic course, he has been prescribed doxycycline 3 weeks for possible Lyme disease. In terms of travel history, he went to the [facility] in February. In terms of infectious history, he had a root canal approximately a month ago. 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 He does do tick checks and subjectively he has also noted occasional chills, but denied cough, abdominal pain, nausea, or diarrhea. While in the ER, he received a full workup including several liters of fluid and ankle x rays which showed osteoarthritis. Doppler of the left lower extremity revealed no DVT, but was positive for a Thomas cyst. He also had leukocytosis and elevated C-reactive protein. In terms of his cardiac history, he has an ejection fraction of 40% to 45%. HOME MEDICATIONS: Include: 1. Ascorbic acid 500 mg b.i.d. 2. Cyclobenzaprine 5 mg daily as needed for pain. 3. Doxycycline 100 mg twice daily. 4. Apixaban 5 mg b.i.d. 6. Glucosamine as needed. 7. Soothe lubricant eye drops to the left eye at bedtime. 8. Magnesium oxide 400 mg daily. 9. Metoprolol succinate XL 12.5 mg daily. 10. Multivitamins. 11. Entresto 0.5 mg daily. 12. Sotalol 40 mg b.i.d. 13. Cialis 20 mg daily as needed. 14. Tramadol 50 mg as needed. ALLERGIES: No known drug allergy. FAMILY HISTORY: Notable for heart disease, colon cancer, bladder cancer, but negative for diabetes, stroke, or autoimmune conditions. SOCIAL HISTORY: He does not smoke and has never used tobacco. He quit drinking alcohol approximately 4 months ago. He lives with his , who is supportive and is retired. 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 REVIEW OF SYSTEMS: General: He has low-grade fever. Musculoskeletal: As noted above. Skin: No overt rash. No circular rash. Cardiac: Denies chest wall pain. Pulmonary: Denies shortness of breath. Abdomen: Denies acute GI discomfort. Neurologic: He is generally restricted primarily due to his musculoskeletal condition. : No blood in the urine or stool. GI: No abdominal symptoms. No symptoms of colitis. Other 14-point review of systems were reviewed and were otherwise negative. PHYSICAL EXAM: He is a pleasant male who is extremely restricted due to the musculoskeletal inflammation in his knee and left ankle, which is very restricted. Temperature is 100.3 temporal, heart rate of 80, respiratory rate of 16, O2 sat is 96% on room air with blood pressure 102/80. HEENT: Revealed a chronic left-sided paralysis which is congenital. Extraocular movements were intact. Hearing was grossly intact. Oral mucous membranes were moist. Neck: Full range of motion. Lymph: No adenopathy. Lungs: Clear to auscultation bilaterally. No accessory use of his muscles. No wheezes or rubs. Cardiovascular: Exam revealed a regular and rhythm. Normal S1 and S2. No murmurs, rubs, or gallops or clicks. Abdomen: Flat, soft, nontender. Positive bowel sounds with no organomegaly. There was minimal erythema around a prior tick bite. It was less than 1 cm in diameter. Extremities: Skin was warm and smooth bilaterally with cyanosis or clubbing. Neurologic: Nonfocal. He did have restricted range of motion of the joints. Musculoskeletal: The left knee had mild tenderness along the medial aspect and was mildly warm, but no definite swelling. However, the right knee had moderate 2+ prepatellar synovitis extending to the lateral aspect of the right knee. Also, the right ankle had 1+ synovitis and was slightly warm and slightly restricted. The left ankle on the other hand was very restricted with significant synovitis 2 to 3+, but he did say that it is improved compared to 2 days ago, but he was very restricted and cannot mobilize the ankle very much globally or posteriorly and he could not dorsiflex it very well. He had no ankle drop, however. There appeared to be a popliteal cyst in the left knee and a slight flexion contracture. No tophi. His nail beds appeared normal and no other nodules were appreciated. DIAGNOSTIC STUDIES/LAB DATA: He had a white count of 12.2, C-reactive protein of 96.35. He had a left knee and left ankle x-ray which revealed osteoarthritis and peripheral arterial disease. Doppler of the lower extremity revealed no DVT. It was positive, however, for a Thomas cyst. ASSESSMENT: Mr. Bang is a 73-year-old male with new onset but persistent oligoarticular primarily lower extremity joint inflammation involving primarily his left knee and left ankle, but now also his right knee and right ankle with evidence of enthesitis, but also a recent tick bite and exposure with an absence of significant axial symptoms. He also has a history of cardiomyopathy. At this point in time, he may have an underlying reactive arthritis, also consider an underlying infectious process given his markedly elevated inflammatory markers and slight leukocytosis. However, this could still be also a reactive type process, also considering evolving connective tissue disorder or seronegative inflammatory arthropathy, also consider an underlying spondylitis. For diagnostic purposes, I recommended joint aspiration. He agreed after potential benefits and side effects were explained including bleeding, trauma, and infection. The right lateral knee was prepped with Betadine x3 swabs, topical anesthesia was applied, and after this, a 22-gauge needle was inserted in the right knee using sterile gloves. Approximately 20 cc grade 2 inflammatory fluid was removed from the knee and sent off for cell culture, cell count, Lyme PCR as well as Gram stain. I spoke to Dr. Saldana who will arrange for crystal analysis as this was not an order immediately available to us. I am under the understanding that he will have crystal analysis of the synovial fluid. We should also consider synovial aspiration of other joints including the left ankle, but he declined it this evening as he said that it was getting better. At this point in time, I would continue doxycycline. He may benefit from a short course of steroids if an infectious process is ruled out. Consider therefore 20 mg b.i.d. of prednisone, which could be titrated down; however, we will first need to follow up on his cultures. Also consider continuing doxycycline, possibly a short course of ceftriaxone for what appears to be possibly reactive symptoms related to a tick exposure such as Lyme disease. In terms of his atrial fibrillation, continue his home medications. DVT prophylaxis: Continue home anticlotting therapy. TIME SPENT: Approximately 70 minutes were spent with the patient evaluating and reevaluating his joints later on in the evening as well as reviewing prior studies, exam, history, and diagnostic evaluation as well as joint aspiration. We will continue to follow other potential consultations which may be helpful, include Orthopedics and Infectious Disease. [id number]/[facility] #: [id number] EILEEN
[2019-05-16 05:04] LABS: Urine Appearance Clear; Urine Bilirubin Negative (Negative); Urine Blood Negative (Negative); Urine Color Yellow; Urine Glucose Negative (Negative); Urine Ketones Negative (Negative); Urine Nitrite Negative (Negative); Urine Protein Negative (Negative); Urine Specific Gravity 1.018 (1.010-1.030); Urine Urobilinogen Negative (Negative)
[2019-05-16 06:03] LABS: ABS Lymphocytes 1.5 10^3/ul (1.0-4.8); ABS Monocytes 1.1 10^3/ul (0-0.8); ABS Neutrophils 6.6 10^3/ul (1.5-7.7); Eosinophil % 0.2 %; Hematocrit 37 % (42-52); Hemoglobin 12.3 g/dL (14.0-18.0); Lymphocyte % 16.7 %; Mean Corpuscular HGB Conc 33 g/dL (31-36); Mean Corpuscular Hemoglobin 29 pg (27-31); Mean Corpuscular Volume 85 fL (80-94); Mean Platelet Volume 6.4 fL (7.4-10.4); Platelet Count 344 10^3/uL (150-450); Red Blood Count 4.32 10^6 /uL (4.18-5.48); Red Cell Distribution Width 13 % (10-15); White Blood Count 9.2 10^3/uL (3.5-10.8)
[2019-05-16 06:22] LABS: Rheumatoid Factor < 10 IU/mL (<15)
[2019-05-16 06:28] LABS: ALT 13 U/L (7-52); AST 11 U/L (13-39); Albumin 2.9 g/dL (3.2-5.2); Alkaline Phosphatase 55 U/L (34-104); Anion Gap 7 mmol/L (2-11); BUN/Creatinine Ratio 23.8 (8-20); Blood Urea Nitrogen 15 mg/dL (6-24); CO2 Carbon Dioxide 25 mmol/L (22-32); Calcium 8.6 mg/dL (8.6-10.3); Chloride 104 mmol/L (101-111); EGFR African American 151.1 (>60); EGFR Non-African American 124.8 (>60); Globulin 2.9 g/dL (2-4); Glucose 106 mg/dL (70-100); Potassium 3.8 mmol/L (3.5-5.0); Sodium 136 mmol/L (135-145); Total Protein 5.8 g/dL (6.4-8.9)
[2019-05-16] MEDS: BORON PO SCH ×2 (08:34→21:37)
[2019-05-16] MEDS: HYALURONIC ACID PO SCH (08:34)
[2019-05-16] MEDS: METHYLSULFONYLMETHANE PO SCH (08:34)
[2019-05-16] MEDS: GLUCOSAMINE PO SCH (08:34)
[2019-05-16] MEDS: CHONDROITIN PO SCH (08:34)
[2019-05-16] MEDS: Ascorbic Acid TAB* 500 MG PO SCH ×2 (08:38→21:08)
[2019-05-16] MEDS: Apixaban* 5 MG TAB PO SCH ×2 (08:38→21:08)
[2019-05-16] MEDS: Multivitamins/Minerals TAB PO SCH (08:38)
[2019-05-16] MEDS: Sotalol TAB* 80 MG PO SCH ×2 (08:38→21:07)
[2019-05-16] MEDS ORDERED: Metoprolol Succinate XL TAB* 25 MG PO SCH (09:00)
[2019-05-16] MEDS ORDERED: VALSARTAN PO SCH (09:00)
[2019-05-16] MEDS ORDERED: SACUBITRIL PO SCH (09:00)
[2019-05-16] MEDS ORDERED: PTO: Sacubitril/Valsartan 24/26(NF) 1 TAB PO SCH (10:31)
[2019-05-16] MEDS: DOXYcycline CAP(*) 100 MG PO SCH ×2 (10:35→21:08)
[2019-05-16] MEDS: predniSONE TAB* 20 MG PO SCH ×2 (11:33→21:07)
[2019-05-16] MEDS: Magnesium Oxide TAB* 400 MG PO SCH (11:33)
--- NOTE | 2019-05-16 12:28 | CONS ---
CONSULTATION REPORT: DATE OF CONSULT: 05/16/19 REQUESTING PROVIDER: Dr. Saldana CONSULTING SERVICE: Infectious Disease. REASON FOR CONSULT: Bilateral knee and ankle arthritis and tendonitis. IMPRESSION: 1. Right greater than left knee synovitis with effusion and then bilateral ankle and foot edema, tenderness, synovitis and Achilles tendinitis, I think most likely a reactive process. This developed while he had been on doxycycline for the possibility of a tick borne illness. The timing of developing true arthritis early in a tick borne infection in multiple joints is unlikely with Lyme as opposed to multiple joint arthralgias early in Lyme. It is possible he had a Lyme infection earlier in the spring when he had the chills and neck pain and this is a reactive process to that. He was also in [facility] this spring and though he did not have febrile illness there, may have had exposure to chikungunya virus, which is also associated with joint sequelae including arthritis and arthralgia. 2. History of mitral valve repair. 3. Elevated C-reactive protein during #1. RECOMMENDATIONS: He is going to continue doxycycline while awaiting further tick studies. He is going to have empiric corticosteroid therapy for reactive process. I am going to add a chikungunya IgG antibody to see if he had been infected with that. HISTORY OF PRESENT ILLNESS: This is a 73-year-old man who has had knee and ankle swelling and pain. This started in mid March with neck and back aches and may be some chills and sweats at the time. He had some symptomatic therapy from his primary care doctor and because of persistence of symptoms, a trial of doxycycline later in the month. While on doxycycline, he feels that he started to get first left knee pain and swelling and then left ankle pain and swelling and then later right knee pain and then right ankle swelling. Because of ongoing symptoms and occasional chills without fevers, sweats or anorexia, he came to the emergency room yesterday. He had had negative Lyme and tick panel a couple of weeks earlier. In the ER, he was found to have a white count of 12, 000, normal urinalysis, CRP of 96, he was seen by Dr. Pereira, who aspirated his right knee that showed 16,000 white cells, 90% neutrophils. Gram stain showed 4 + neutrophils, no organisms, staph PCR was negative. He has been continued on doxycycline here. He has had no fever, chills, or sweats and symptoms about the same. He had no rash. He was in the [facility] in February, was not ill while there or soon thereafter. PAST MEDICAL HISTORY: 1. Atrial fibrillation. 2. Cardiomyopathy with an ejection fraction 40% to 45%. 3. Congenital Kincaid's palsy. 4. Status post mitral valve repair. 5. Status post hernia repair. 6. Root canal 1 month ago. MEDICATIONS: 1. Tylenol. 2. Eliquis. 3. Vitamin C. 4. Doxycycline 100 mg by mouth twice daily. 5. Magnesium oxide. 6. Melatonin. 7. Metoprolol. 8. Sacubitril/valsartan. 9. Sotalol. ALLERGIES: No known drug allergies. FAMILY HISTORY: There is coronary artery disease and colon cancer. SOCIAL HISTORY: He is a retired burnette, [employer] and [employer] employee, who had travelled to the [facility], no other travel abroad recently. Lives with his . REVIEW OF SYSTEMS: All negative except as noted above to 12-point review. PHYSICAL EXAM: Vital Sings: Temperature 37.8, heart rate 67, respiratory rate 20, blood pressure 98/49, oxygen saturation 96% on room air. In general, he is awake, not in distress. Neurologic: He is oriented x3. Follows all commands. Moves all his extremities. HEENT: There is no conjunctival hemorrhage. Oropharynx without lesions. Neck: Neck is supple without mass. Heart is regular rate and rhythm without murmurs, rubs, or gallops. Lungs: Clear to auscultation bilaterally. Abdomen: Soft, nontender, nondistended. Bowel sounds present. Skin: There is no rash or splinter hemorrhage. Musculoskeletal: No spine tenderness to palpation. There is no wrist or finger joint synovitis. There is right knee effusion. Mild warmth and tenderness. There is a left knee trace effusion, tenderness without much warmth. There is bilateral ankle and foot edema and ankle joint tenderness. DIAGNOSTIC STUDIES/LAB DATA: White blood cell count 9, hemoglobin 12, platelets 344, and creatinine 0.6. Please see impressions and recommendations outlined above that I discussed with Dr. Saldana. Thanks for asking me to see Mr. Bang in consultation. [id number]/[facility] #: [id number] [facility]
--- NOTE | 2019-05-16 13:50 | PN ---
Subjective Date of Service: 05/16/19 Interval History: HOSPITALIST PROGRESS NOTE Patient seen and examined at bedside. Care reviewed and d/w Marli Holley RN. He feels a little better today. Left knee is less swollen, but right knee arthritis is more pronounced. Denies CP, palpitations, dyspnea. Family History: Unchanged from Admission Social History: Unchanged from Admission Past Medical History: Unchanged from Admission Objective Active Medications: Acetaminophen (Tylenol Tab*) 650 mg PO Q4H PRN PRN Reason: FEVER/PAIN Last Admin: 05/16/19 11:33 Dose: 650 mg Apixaban (Eliquis*) 5 mg PO BID [facility] Last Admin: 05/16/19 08:38 Dose: 5 mg Ascorbic Acid (Vitamin C Tab*) 500 mg PO BID [facility] Last Admin: 05/16/19 08:38 Dose: 500 mg Doxycycline Hyclate (Vibramycin Cap(*)) 100 mg PO BID [facility] Last Admin: 05/16/19 10:35 Dose: 100 mg Magnesium Oxide (Magox 400 Tab*) 400 mg PO DAILY@1200 [facility] Last Admin: 05/16/19 11:33 Dose: 400 mg Melatonin (Melatonin) 3 mg PO BEDTIME [facility] Last Admin: 05/16/19 00:17 Dose: Not Given Metoprolol Succinate (Toprol Xl Tab*) 12.5 mg PO QPM [facility] Last Admin: 05/15/19 22:25 Dose: 12.5 mg Multivitamins/Minerals (Theragran/Minerals Tab*) 1 tab PO DAILY [facility] Last Admin: 05/16/19 08:38 Dose: 1 tab Pto: Glycerin/Propylene Glycol [ Soothe Lubricant Eye Drops] 1 Oint) 1 oint LEFT EYE BEDTIME [facility] Pto: Glucosam/Chond/Msm/[place]/Hyal [ Glucosamine-Chondr Complex Tab] 1 Tab) 1 tab PO BID [facility] Prednisone (Deltasone Tab*) 20 mg PO BID [facility] Last Admin: 05/16/19 11:33 Dose: 20 mg Sacubitril/Valsartan (Entresto (Nf)) 0.5 tab PO DAILY [facility] Sotalol HCl (Betapace Tab*) 40 mg PO BID [facility] Last Admin: 05/16/19 08:38 Dose: 40 mg Vital Signs - 8 hr 05/16/19 05/16/19 05/16/19 07:35 08:00 11:33 Temperature 100.1 F 97.9 F Pulse Rate 67 63 Respiratory 20 18 20 Rate Blood Pressure 98/49 103/53 (mmHg) O2 Sat by Pulse 96 96 100 Oximetry Oxygen Devices in Use Now: None Appearance: Pleasant elderly gentleman sitting up in a chair in NAD. Eyes: No Scleral Icterus Ears/Nose/Mouth/Throat: Mucous Membranes Moist Neck: Trachea Midline Respiratory: Symmetrical Chest Expansion and Respiratory Effort, Clear to Auscultation Cardiovascular: RRR - Normal S1 and S2 Extremities: - - Right knee edema and warmth; left knee has minimal edema and warmth is much improved; Left ankle still has severe edema and warmth Neurological: Alert and Oriented x 3, NL Muscle Strength and Tone, - - Left facial paralysis Result Diagrams: 05/16/19 05:21 05/16/19 05:21 Microbiology and Other Data: Microbiology 05/15/19 12:56 Aerobic Blood Culture - Preliminary Blood Venous No Growth Day 1 Anaerobic Blood Culture - Preliminary No Growth Day 1 05/15/19 12:56 Aerobic Blood Culture - Preliminary Blood Venous No Growth Day 1 Anaerobic Blood Culture - Preliminary No Growth Day 1 05/15/19 18:00 Gram Stain - Final Joint Fluid(Synovial) Body Fluid Culture - Preliminary No Growth Day 1 Skin and Soft Tissue MRSA/MSSA (PCR - Final Mrsa Negative S.aureus Negative Assess/Plan/Problems-Billing Assessment: Mr Bang is a 73yo M with PMH of Afib, CMP wtih EF 40-45%, s/p MV repair, left facial paralysis (at ), who presented to ED with 1 month of malaise, fatigue, progressive oligoarthritis (knees and left ankle), right Achilles tendon pain/edema, found to have probable Reactive arthritis vs Lyme related arthritis. - Patient Problems (1) Reactive arthritis Comment: - Rheumatology input much appreciated. - Synovial fluid suggestive of inflammatory arthropathy - d/w Dr Pereira - will start Prednisone 20mg PO BID. - Continue doxycycline for possible Lyme. - F/u other synovial fluid tests (including crystals and Lyme PCR). - Continue PT as tolerated. (2) Afib Comment: - In NSR. - Continue Apixaban, Metoprolol, and Sotalol. (3) Cardiomyopathy Comment: - Stable. - Continue Entresto and Metoprolol. (4) DVT prophylaxis Comment: - Apixaban. (5) Full code status
[2019-05-16] MEDS: Metoprolol Succinate XL TAB* 25 MG PO SCH (17:29)
--- NOTE | 2019-05-16 18:12 | PN ---
Subjective - Subjective Date of Service: 05/16/19 - chief complaint: oligoarticular joint pain and swelling Active Problems: Active Problems Afib (Acute) I48.91 - In NSR. - Continue Apixaban, Metoprolol, and Sotalol. Cardiomyopathy (Acute) I42.9 - Stable. - Continue Entresto and Metoprolol. DVT prophylaxis (Acute) Z29.9 - Apixaban. Full code status (Acute) Z78.9 Reactive arthritis (Acute) M02.30 - Synovial fluid suggestive of inflammatory arthropathy - I spoke with Dr. Schaefer and Dr. Campos- he has noted a benefit in terms of joint pain and swelling since starting Prednisone 20mg PO BID. - Continue doxycycline for possible Lyme. - F/u other synovial fluid tests (including crystals and Lyme PCR ). - Continue PT as tolerated. Current Medications: Current Medications Acetaminophen (Tylenol Tab*) 650 mg PO Q4H PRN PRN Reason: FEVER/PAIN Last Admin: 05/16/19 11:33 Dose: 650 mg Apixaban (Eliquis*) 5 mg PO BID [facility] Last Admin: 05/16/19 08:38 Dose: 5 mg Ascorbic Acid (Vitamin C Tab*) 500 mg PO BID [facility] Last Admin: 05/16/19 08:38 Dose: 500 mg Doxycycline Hyclate (Vibramycin Cap(*)) 100 mg PO BID [facility] Last Admin: 05/16/19 10:35 Dose: 100 mg Magnesium Oxide (Magox 400 Tab*) 400 mg PO DAILY@1200 [facility] Last Admin: 05/16/19 11:33 Dose: 400 mg Melatonin (Melatonin) 3 mg PO BEDTIME [facility] Last Admin: 05/16/19 00:17 Dose: Not Given Metoprolol Succinate (Toprol Xl Tab*) 12.5 mg PO QPM [facility] Last Admin: 05/16/19 17:29 Dose: 12.5 mg Multivitamins/Minerals (Theragran/Minerals Tab*) 1 tab PO DAILY [facility] Last Admin: 05/16/19 08:38 Dose: 1 tab Pto: Glycerin/Propylene Glycol [ Soothe Lubricant Eye Drops] 1 Oint) 1 oint LEFT EYE BEDTIME [facility] Pto: Glucosam/Chond/Msm/[place]/Hyal [ Glucosamine-Chondr Complex Tab] 1 Tab) 1 tab PO BID [facility] Prednisone (Deltasone Tab*) 20 mg PO BID [facility] Last Admin: 05/16/19 11:33 Dose: 20 mg Sacubitril/Valsartan (Entresto (Nf)) 0.5 tab PO BEDTIME [facility] Sotalol HCl (Betapace Tab*) 40 mg PO BID [facility] Last Admin: 05/16/19 08:38 Dose: 40 mg - Review of Systems General Comments: Although right knee and left ankle remain swollen, his joints are generally improved; he has not tried weight bearing yet but he is working with PT Constitutional Symptoms: No: Weight Gain, Fever, Night Sweats, Unexplained Falls Dermatology: Normal: Yes HEENT: Yes Normal Eyes: Positive: Normal Thyroid: Positive: Normal Pulmonary: Positive: Normal Cardiology: Positive: Normal Gastroenterology: Positive: Normal Musculoskeletal: Positive: Joint Stiffness, Arthritis Endocrinology: Positive: Normal Neurology: Positive: Normal Psychiatry: Positive: Normal Allergic/Immunologic: Positive: Immunocompromise Home Medications: Home Medications Medication Instructions Recorded Confirmed Type Apixaban* [Eliquis*] 5 mg PO BID 05/15/19 05/15/19 History Ascorbic Acid TAB* [Vitamin C 500 mg PO BID 05/15/19 05/15/19 History TAB*] Cyclobenzaprine (NF) 5 mg PO QPM PRN 05/15/19 05/15/19 History [Cyclobenzaprine 5 MG (NF)] DOXYcycline CAP(*) [DOXYcycline 100 mg PO BID 05/15/19 05/15/19 History 100MG CAP(*)] Glucosam/Chond/MSM/[place]/Hyal [Tgt 1 tab PO BID 05/15/19 05/15/19 History Advanced Glucosamine/] Glycerin/Propylene Glycol [Soothe 1 oint LEFT EYE BEDTIME 05/15/19 05/15/19 History Lubricant Eye Drops] Magnesium Oxide TAB* [MagOx 400 400 mg PO DAILY 05/15/19 05/15/19 History TAB*] Metoprolol Succinate XL TAB* 12.5 mg PO DAILY 05/15/19 05/15/19 History [Toprol XL TAB*] Mineral Oil, Light/Mineral Oil 2 drop LEFT EYE BID 05/15/19 05/15/19 History [Soothe Xp/Xtra Protection] Multivitamins/Minerals TAB* 1 tab PO DAILY 05/15/19 05/15/19 History [Theragran/minerals TAB*] Sacubitril/Valsartan (NF) 0.5 tab PO DAILY 05/15/19 05/15/19 History [Entresto (NF)] Sotalol TAB* [Betapace 80 MG TAB*] 40 mg PO BID 05/15/19 05/15/19 History Tadalafil [Cialis] 20 mg PO DAILY PRN 05/15/19 05/15/19 History traMADol TAB* [Ultram*] 50 mg PO Q6HR PRN 05/15/19 05/15/19 History Allergies: Allergies Allergy/AdvReac Type Severity Reaction Status Date / Time No Known Allergies Allergy Verified 05/15/19 12:22 Objective - Vital Signs Vital Signs: Vital Signs 05/15/19 05/15/19 05/15/19 18:09 18:26 18:29 Temperature 99.8 F Pulse Rate 77 79 79 Respiratory 10 14 16 Rate Blood Pressure 114/64 105/61 105/61 (mmHg) O2 Sat by Pulse 95 93 94 Oximetry 05/15/19 05/15/19 05/15/19 18:40 18:41 22:20 Temperature 98.5 F Pulse Rate 75 Respiratory 18 18 20 Rate Blood Pressure 110/57 (mmHg) O2 Sat by Pulse 96 95 Oximetry 05/15/19 05/16/19 05/16/19 23:18 03:00 07:35 Temperature 97.4 F 99.2 F 100.1 F Pulse Rate 76 72 67 Respiratory 20 20 20 Rate Blood Pressure 93/48 102/50 98/49 (mmHg) O2 Sat by Pulse 95 95 96 Oximetry 05/16/19 05/16/19 05/16/19 08:00 11:33 15:00 Temperature 97.9 F 97.5 F Pulse Rate 63 73 Respiratory 18 20 16 Rate Blood Pressure 103/53 98/52 (mmHg) O2 Sat by Pulse 96 100 98 Oximetry - Intake and Output Intake and Output: Intake & Output 05/14/19 05/15/19 05/16/19 05/17/19 06:59 06:59 06:59 06:59 Intake Total 2380 1510 Output Total 400 700 Balance 1980 810 Weight 178 lb 8 oz Intake: IV Fluids 2380 Oral 0 1510 Output: Urine 400 700 ADLs: Meal Record Start: 05/15/19 19: 13 Freq: DAILY@0900,1400,1800 Status: Active Protocol: Created 05/15/19 19:13 System (Rec: 05/15/19 19:13 System [id number]) Document 05/15/19 22:32 [id number] (Rec: 05/15/19 22:32 [id number] TELE-C09) Document 05/16/19 09:00 [id number] (Rec: 05/16/19 13:13 [id number] TELE-C11) Document 05/16/19 14:00 [id number] (Rec: 05/16/19 15:07 [id number] TELE-C11) Intake and Output Start: 05/15/19 12: 22 Freq: Status: Active Protocol: Created 05/15/19 12:22 System (Rec: 05/15/19 12:22 System [id number]) Document 05/16/19 16:55 [id number] (Rec: 05/16/19 16:55 [id number] TELE-C11) Intake and Output Start: 05/15/19 19: 13 Freq: DAILY@0600,1400,2200 Status: Active Protocol: Created 05/15/19 19:13 System (Rec: 05/15/19 19:13 System [id number]) Document 05/15/19 22:00 [id number] (Rec: 05/16/19 04:59 [id number] TELE-C08) Document 05/16/19 04:59 [id number] (Rec: 05/16/19 05:00 [id number] TELE-C08) Document 05/16/19 14:00 [id number] (Rec: 05/16/19 15:07 [id number] TELE-C11) - Physical Exam General Physical Exam Comment: No acute distress; able to sit up but is not weight bearing yet Eye Exam: bilateral: PERRLA - Unchanged facial hemiparesis from Kincaid's palsy Thyroid Function: Clinically Euthyroid Lungs and Chest: Yes: Chest Expansion Full, Chest Expansion Symetrica Heart Rate and Rhythm: Regular JVP: Not Elevated [place] Beat: Non Displaced Additional Cardiovascular: Yes: [place] Beat not Displaced Abdominal Exam: Yes: Soft - Rheumotological System Joints: Joint Swelling - Right knee 1 plus synovitis, left ankle 1 plus synovitis but less swollen and tender than yesterday and left knee has no swelling; right ankle has 1 plus synovitis - Extremities Limbs: Normal Power - Neuro Psychiatric: Normal Speech: Normal Results - Results Lab Results: Laboratory Results - last 24 hr 05/15/19 05/15/19 05/16/19 12:56 18:00 04:39 WBC RBC Hgb Hct MCV MCH MCHC RDW Plt Count MPV Neut % (Auto) Lymph % (Auto) Maver[place] % (Auto) Eos % (Auto) Baso % (Auto) Absolute Neuts (auto) Absolute Lymphs (auto) Absolute Monos (auto) Absolute Eos (auto) Absolute Basos (auto) Absolute Nucleated RBC Nucleated RBC % Sodium Potassium Chloride Carbon Dioxide Anion Gap BUN Creatinine Est GFR ( Amer) Est GFR (Non-Af Amer) BUN/Creatinine Ratio Glucose Calcium Total Bilirubin AST ALT Alkaline Phosphatase Total Protein Albumin Globulin Albumin/Globulin Ratio Urine Color Yellow Urine Appearance Clear Urine pH 5.0 Ur Specific [place] 1.018 Urine Protein Negative Urine Ketones Negative Urine Blood Negative Urine Nitrate Negative Urine Bilirubin Negative Urine Urobilinogen Negative Ur Leukocyte Esterase Negative Urine Glucose Negative Urine Ascorbic Acid * A Fluid Source Synovial fluid Fluid Volume 4.0 Fluid Color Yellow Fluid Appearance Cloudy Fluid WBC 47863 Fluid RBC 923 Fluid Tot Cell Count 100 Fluid Neutrophils 91 Fluid Lymphocytes 1 Fluid Monocytes 8 Fluid Comment Rheumatoid Factor Lyme Total Antibody Negative 05/16/19 05/16/19 05:21 05:21 WBC 9.2 RBC 4.32 Hgb 12.3 L Hct 37 L MCV 85 MCH 29 MCHC 33 RDW 13 Plt Count 344 MPV 6.4 L Neut % (Auto) 71.4 Lymph % (Auto) 16.7 Ma[place] % (Auto) 11.5 Eos % (Auto) 0.2 Baso % (Auto) 0.2 Absolute Neuts (auto) 6.6 Absolute Lymphs (auto) 1.5 Absolute Monos (auto) 1.1 H Absolute Eos (auto) 0.0 Absolute Basos (auto) 0.0 Absolute Nucleated RBC 0.0 Nucleated RBC % 0.0 Sodium 136 Potassium 3.8 Chloride 104 Carbon Dioxide 25 Anion Gap 7 BUN 15 Creatinine 0.63 L Est GFR ( Amer) 151.1 Est GFR (Non-Af Amer) 124.8 BUN/Creatinine Ratio 23.8 H Glucose 106 H Calcium 8.6 Total Bilirubin 0.70 AST 11 L ALT 13 Alkaline Phosphatase 55 Total Protein 5.8 L Albumin 2.9 L Globulin 2.9 Albumin/Globulin Ratio 1.0 Urine Color Urine Appearance Urine pH Ur Specific [place] Urine Protein Urine Ketones Urine Blood Urine Nitrate Urine Bilirubin Urine Urobilinogen Ur Leukocyte Esterase Urine Glucose Urine Ascorbic Acid Fluid Source Fluid Volume Fluid Color Fluid Appearance Fluid WBC Fluid RBC Fluid Tot Cell Count Fluid Neutrophils Fluid Lymphocytes Fluid Monocytes Fluid Comment Rheumatoid Factor < 10 Lyme Total Antibody Assessment - Problem List Assessment: Patient Problems Afib (Acute) Cardiomyopathy (Acute) DVT prophylaxis (Acute) Full code status (Acute) Reactive arthritis (Acute) Inguinal hernia, bilateral (Acute) Mitral insufficiency (Acute) Plan: Mr. Bang likely has a reactive arthritis. He is already improving on Prednisone. He is to continue Doxycycline. Viral titers being checked by ID. Follow up synovial fluid Lyme PCR and tick born panel. He also has chondrocalcinosis; I am awaiting crystal analysis from his knee May need extended PT. Follow up autoimmune serologies Coordination of Care: Yes - Discussed with Dr. Campos and Dr Schaefer
[2019-05-16] MEDS: PROPYLENE GLYCOL LEFT EYE SCH (21:05)
[2019-05-16] MEDS: PTO: Sacubitril/Valsartan 24/26(NF) 1 TAB PO SCH (21:05)
[2019-05-16] MEDS: GLYCERIN LEFT EYE SCH (21:05)
[2019-05-16] MEDS: MSM PO SCH (21:37)
[2019-05-16] MEDS: CHOND PO SCH (21:37)
[2019-05-16] MEDS: GLUCOSAM PO SCH (21:37)
[2019-05-16] MEDS: [UNRECOGNIZED DRUG - OTHER] PO SCH (21:37)
[2019-05-17] MEDS: Apixaban* 5 MG TAB PO SCH ×2 (10:27→22:18)
[2019-05-17] MEDS: predniSONE TAB* 20 MG PO SCH ×2 (10:27→22:18)
[2019-05-17] MEDS: DOXYcycline CAP(*) 100 MG PO SCH ×2 (10:27→22:18)
[2019-05-17] MEDS: Magnesium Oxide TAB* 400 MG PO SCH (10:27)
[2019-05-17] MEDS: Sotalol TAB* 80 MG PO SCH ×2 (10:27→22:17)
[2019-05-17] MEDS: Multivitamins/Minerals TAB PO SCH (10:33)
[2019-05-17] MEDS: Ascorbic Acid TAB* 500 MG PO SCH ×2 (10:33→22:18)
[2019-05-17] MEDS: MSM PO SCH ×2 (10:37→22:15)
[2019-05-17] MEDS: GLUCOSAM PO SCH ×2 (10:37→22:15)
[2019-05-17] MEDS: CHOND PO SCH ×2 (10:37→22:15)
[2019-05-17] MEDS: [UNRECOGNIZED DRUG - OTHER] PO SCH ×2 (10:37→22:15)
[2019-05-17] MEDS: BORON PO SCH ×2 (10:37→22:15)
--- NOTE | 2019-05-17 11:02 | PN ---
Subjective Date of Service: 05/17/19 Interval History: HOSPITALIST PROGRESS NOTE Patient seen and examined at bedside. Care reviewed and d/w Sabi Tamayo RN. He is in very good spirits today. Still has significant knee/ankle pain with ambulation, but very happy he was able to bear weight and ambulate to the bathroom with a walker. Denies CP, palpitations, dyspnea, or other complaints. Family History: Unchanged from Admission Social History: Unchanged from Admission Past Medical History: Unchanged from Admission Objective Active Medications: Acetaminophen (Tylenol Tab*) 650 mg PO Q4H PRN PRN Reason: FEVER/PAIN Last Admin: 05/16/19 11:33 Dose: 650 mg Apixaban (Eliquis*) 5 mg PO BID [facility] Last Admin: 05/17/19 10:27 Dose: 5 mg Ascorbic Acid (Vitamin C Tab*) 500 mg PO BID [facility] Last Admin: 05/17/19 10:33 Dose: 500 mg Doxycycline Hyclate (Vibramycin Cap(*)) 100 mg PO BID [facility] Last Admin: 05/17/19 10:27 Dose: 100 mg Magnesium Oxide (Magox 400 Tab*) 400 mg PO DAILY@1200 [facility] Last Admin: 05/17/19 10:27 Dose: 400 mg Melatonin (Melatonin) 3 mg PO BEDTIME [facility] Last Admin: 05/16/19 21:08 Dose: 3 mg Metoprolol Succinate (Toprol Xl Tab*) 12.5 mg PO QPM [facility] Last Admin: 05/16/19 17:29 Dose: 12.5 mg Multivitamins/Minerals (Theragran/Minerals Tab*) 1 tab PO DAILY [facility] Last Admin: 05/17/19 10:33 Dose: Not Given Pto: Glycerin/Propylene Glycol [ Soothe Lubricant Eye Drops] 1 Oint) 1 oint LEFT EYE BEDTIME [facility] Last Admin: 05/16/19 21:05 Dose: 1 oint Pto: Glucosam/Chond/Msm/[place]/Hyal [ Glucosamine-Chondr Complex Tab] 1 Tab) 1 tab PO BID [facility] Last Admin: 05/17/19 10:37 Dose: 1 tab Prednisone (Deltasone Tab*) 20 mg PO BID [facility] Last Admin: 05/17/19 10:27 Dose: 20 mg Sacubitril/Valsartan (Entresto (Nf)) 0.5 tab PO BEDTIME [facility] Last Admin: 05/16/19 21:05 Dose: 0.5 tab Sotalol HCl (Betapace Tab*) 40 mg PO BID [facility] Last Admin: 05/17/19 10:27 Dose: 40 mg Vital Signs - 8 hr 05/17/19 05/17/19 07:00 07:30 Temperature 97.9 F Pulse Rate 60 Respiratory 20 20 Rate Blood Pressure 91/53 (mmHg) O2 Sat by Pulse 97 97 Oximetry Oxygen Devices in Use Now: None Appearance: Pleasant elderly gentleman sitting up in bed in NAD. Eyes: No Scleral Icterus Ears/Nose/Mouth/Throat: Mucous Membranes Moist Neck: Trachea Midline Respiratory: Symmetrical Chest Expansion and Respiratory Effort, Clear to Auscultation Cardiovascular: RRR - Normal S1 and S2 Extremities: - - Right knee and left ankle edema and warmth improved from yesterday; left knee arthritis almost resolved. Right Achilles tendon tenderness still present Neurological: Alert and Oriented x 3, NL Muscle Strength and Tone, - - Left facial paralysis, unchanged Result Diagrams: 05/16/19 05:21 05/16/19 05:21 Microbiology and Other Data: Microbiology 05/15/19 12:56 Aerobic Blood Culture - Preliminary Blood Venous No Growth Day 1 Anaerobic Blood Culture - Preliminary No Growth Day 1 05/15/19 12:56 Aerobic Blood Culture - Preliminary Blood Venous No Growth Day 1 Anaerobic Blood Culture - Preliminary No Growth Day 1 05/15/19 18:00 Gram Stain - Final Joint Fluid(Synovial) Body Fluid Culture - Preliminary No Growth Day 1 Skin and Soft Tissue MRSA/MSSA (PCR - Final Mrsa Negative S.aureus Negative Assess/Plan/Problems-Billing Assessment: Mr Bang is a 73yo M with PMH of Afib, CMP wtih EF 40-45%, s/p MV repair, left facial paralysis (at ), who presented to ED with 1 month of malaise, fatigue, progressive oligoarthritis (knees and left ankle), right Achilles tendon pain/edema, found to have probable Reactive arthritis vs Lyme related arthritis. - Patient Problems (1) Reactive arthritis Comment: - Significant improvement with Prednisone. - Repeat Lyme disease serology is negative, but will continue doxycycline until we get the full tick borne diseases results. - Synovial fluid cultures show no growth so far, and crystals were negative. - F/u other synovial fluid tests (Lyme PCR). - Continue PT as tolerated. (2) Afib Comment: - In NSR. - Continue Apixaban, Metoprolol, and Sotalol. - D/c Telemetry. (3) Cardiomyopathy Comment: - Stable. - Continue Entresto and Metoprolol. (4) DVT prophylaxis Comment: - Apixaban. (5) Full code status Status and Disposition: Anticipate d/c in AM if he continues to improve.
[2019-05-17 16:44] LABS: HLA B27 Negative
--- NOTE | 2019-05-17 17:28 | PN ---
Subjective - Subjective Date of Service: 05/17/19 - Chief complaint : oligoarticular arthritis Active Problems: Active Problems Afib (Acute) I48.91 - In NSR. - Continue Apixaban, Metoprolol, and Sotalol. - D/c Telemetry. Cardiomyopathy (Acute) I42.9 - Stable. - Continue Entresto and Metoprolol. DVT prophylaxis (Acute) Z29.9 - Apixaban. Full code status (Acute) Z78.9 Reactive arthritis (Acute) M02.30 - Significant improvement with Prednisone. - Repeat Lyme disease serology is negative, but will continue doxycycline until we get the full tick borne diseases results. - Synovial fluid cultures show no growth so far, and crystals were negative. - F/u other synovial fluid tests (Lyme PCR). - Continue PT as tolerated. Current Medications: Current Medications Acetaminophen (Tylenol Tab*) 650 mg PO Q4H PRN PRN Reason: FEVER/PAIN Last Admin: 05/16/19 11:33 Dose: 650 mg Apixaban (Eliquis*) 5 mg PO BID [facility] Last Admin: 05/17/19 10:27 Dose: 5 mg Ascorbic Acid (Vitamin C Tab*) 500 mg PO BID [facility] Last Admin: 05/17/19 10:33 Dose: 500 mg Doxycycline Hyclate (Vibramycin Cap(*)) 100 mg PO BID [facility] Last Admin: 05/17/19 10:27 Dose: 100 mg Magnesium Oxide (Magox 400 Tab*) 400 mg PO DAILY@1200 [facility] Last Admin: 05/17/19 10:27 Dose: 400 mg Melatonin (Melatonin) 3 mg PO BEDTIME [facility] Last Admin: 05/16/19 21:08 Dose: 3 mg Metoprolol Succinate (Toprol Xl Tab*) 12.5 mg PO QPM [facility] Last Admin: 05/16/19 17:29 Dose: 12.5 mg Multivitamins/Minerals (Theragran/Minerals Tab*) 1 tab PO DAILY [facility] Last Admin: 05/17/19 10:33 Dose: Not Given Pto: Glycerin/Propylene Glycol [ Soothe Lubricant Eye Drops] 1 Oint) 1 oint LEFT EYE BEDTIME [facility] Last Admin: 05/16/19 21:05 Dose: 1 oint Pto: Glucosam/Chond/Msm/[place]/Hyal [ Glucosamine-Chondr Complex Tab] 1 Tab) 1 tab PO BID [facility] Last Admin: 05/17/19 10:37 Dose: 1 tab Prednisone (Deltasone Tab*) 20 mg PO BID [facility] Last Admin: 05/17/19 10:27 Dose: 20 mg Sacubitril/Valsartan (Entresto (Nf)) 0.5 tab PO BEDTIME [facility] Last Admin: 05/16/19 21:05 Dose: 0.5 tab Sotalol HCl (Betapace Tab*) 40 mg PO BID [facility] Last Admin: 05/17/19 10:27 Dose: 40 mg - Review of Systems General Comments: Generally Mr. Bang is feeling much better and his joint pain is improved although he is still not full weight bearing; he is able to use his walker a little. His right knee and ankles remain slightly swollen although they continue to improve in terms of joint pain and inflammation Constitutional Symptoms: No: Weight Gain, Fatigue, Night Sweats Dermatology: Normal: Yes HEENT: Yes Normal Eyes: Positive: Normal Thyroid: Positive: Normal Pulmonary: Positive: Normal Cardiology: Positive: Normal Gastroenterology: Positive: Normal Musculoskeletal: Positive: Joint Stiffness, Joint Deformities Endocrinology: Positive: Normal Neurology: Positive: Normal Psychiatry: Positive: Normal Home Medications: Home Medications Medication Instructions Recorded Confirmed Type Apixaban* [Eliquis*] 5 mg PO BID 05/15/19 05/15/19 History Ascorbic Acid TAB* [Vitamin C 500 mg PO BID 05/15/19 05/15/19 History TAB*] Cyclobenzaprine (NF) 5 mg PO QPM PRN 05/15/19 05/15/19 History [Cyclobenzaprine 5 MG (NF)] DOXYcycline CAP(*) [DOXYcycline 100 mg PO BID 05/15/19 05/15/19 History 100MG CAP(*)] Glucosam/Chond/MSM/[place]/Hyal [Tgt 1 tab PO BID 05/15/19 05/15/19 History Advanced Glucosamine/] Glycerin/Propylene Glycol [Soothe 1 oint LEFT EYE BEDTIME 05/15/19 05/15/19 History Lubricant Eye Drops] Magnesium Oxide TAB* [MagOx 400 400 mg PO DAILY 05/15/19 05/15/19 History TAB*] Metoprolol Succinate XL TAB* 12.5 mg PO DAILY 05/15/19 05/15/19 History [Toprol XL TAB*] Mineral Oil, Light/Mineral Oil 2 drop LEFT EYE BID 05/15/19 05/15/19 History [Soothe Xp/Xtra Protection] Multivitamins/Minerals TAB* 1 tab PO DAILY 05/15/19 05/15/19 History [Theragran/minerals TAB*] Sacubitril/Valsartan (NF) 0.5 tab PO DAILY 05/15/19 05/15/19 History [Entresto (NF)] Sotalol TAB* [Betapace 80 MG TAB*] 40 mg PO BID 05/15/19 05/15/19 History Tadalafil [Cialis] 20 mg PO DAILY PRN 05/15/19 05/15/19 History traMADol TAB* [Ultram*] 50 mg PO Q6HR PRN 05/15/19 05/15/19 History Allergies: Allergies Allergy/AdvReac Type Severity Reaction Status Date / Time No Known Allergies Allergy Verified 05/15/19 12:22 Objective - Vital Signs Vital Signs: Vital Signs 05/16/19 05/16/19 05/16/19 19:00 20:00 23:00 Temperature 97.8 F 98 F Pulse Rate 72 66 Respiratory 18 18 14 Rate Blood Pressure 104/60 91/61 (mmHg) O2 Sat by Pulse 97 95 Oximetry 05/17/19 05/17/19 05/17/19 03:00 07:00 07:30 Temperature 97 F 97.9 F Pulse Rate 62 60 Respiratory 16 20 20 Rate Blood Pressure 94/58 91/53 (mmHg) O2 Sat by Pulse 96 97 97 Oximetry - Intake and Output Intake and Output: Intake & Output 05/15/19 05/16/19 05/17/19 05/18/19 06:59 06:59 06:59 06:59 Intake Total 2380 2230 970 Output Total 400 1050 0 Balance 1980 1180 970 Weight 178 lb 8 oz Intake: IV Fluids 2380 Oral 0 2230 970 Output: Urine 400 1050 0 Other: # Bowel Movements 1 Estimated Stool Amount Medium ADLs: Meal Record Start: 05/15/19 19: 13 Freq: DAILY@0900,1400,1800 Status: Active Protocol: Created 05/15/19 19:13 System (Rec: 05/15/19 19:13 System [email or web address]-C03) Document 05/15/19 22:32 [id number] (Rec: 05/15/19 22:32 [id number] TELE-C09) Document 05/16/19 09:00 [id number] (Rec: 05/16/19 13:13 [id number] TELE-C11) Document 05/16/19 14:00 [id number] (Rec: 05/16/19 15:07 [id number] TELE-C11) Document 05/16/19 18:00 [id number] (Rec: 05/16/19 18:51 [id number] TELE-C07) Document 05/17/19 09:00 [id number] (Rec: 05/17/19 10:49 [id number] TELE-C10) Document 05/17/19 14:00 [id number] (Rec: 05/17/19 14:45 [id number] TELE-C10) Intake and Output Start: 05/15/19 12: 22 Freq: Status: Active Protocol: Created 05/15/19 12:22 System (Rec: 05/15/19 12:22 System ED-C29) Document 05/16/19 16:55 [id number] (Rec: 05/16/19 16:55 [id number] TELE-C11) Intake and Output Start: 05/15/19 19: 13 Freq: DAILY@0600,1400,2200 Status: Active Protocol: Created 05/15/19 19:13 System (Rec: 05/15/19 19:13 System TELE-C03) Document 05/15/19 22:00 [id number] (Rec: 05/16/19 04:59 [id number] TELE-C08) Document 05/16/19 04:59 [id number] (Rec: 05/16/19 05:00 [id number] TELE-C08) Document 05/16/19 14:00 [id number] (Rec: 05/16/19 15:07 [id number] TELE-C11) Document 05/16/19 22:00 [id number] (Rec: 05/16/19 22:46 [id number] TELE-C01) Document 05/17/19 06:00 [id number] (Rec: 05/17/19 06:08 [id number] TELE-C01) Document 05/17/19 14:00 [id number] (Rec: 05/17/19 14:45 [id number] TELE-C10) - Physical Exam General Physical Exam Comment: No acute distress, able to sit up easily in bed Eye Exam: left: Eyelid Head: Yes Normocephalic Thyroid Function: Clinically Euthyroid Lungs and Chest: Yes: Chest Expansion Full, Chest Expansion Symetrica, Percussion Note Resonant Heart Rate and Rhythm: Regular JVP: Not Elevated [place] Beat: Non Displaced Additional Cardiovascular: Yes: [place] Beat not Displaced Abdominal Exam: Yes: Soft - Rheumotological System Joints: Joint Swelling - right knee 1 plus synovitis and bilateral ankles 1 plus synovitis although ROM is improved and there is no joint tenderness - Extremities Posterior Tibial Pulse: Bilateral Normal Limbs: Normal Power - Neuro Psychiatric: Normal Speech: Normal Results - Results Lab Results: Laboratory Results - last 24 hr 05/15/19 05/15/19 05/15/19 18:00 18:00 23:21 Angiotensin Convert Enz Fluid Cell Count Rvw By Proteinase 3 (PR3) Myeloperoxidase Ab HLA-B27 Negative HLA-B27 Interpretation See comment Miscellaneous Test See comment 05/15/19 05/15/19 23:21 23:21 Angiotensin Convert Enz 14 L Fluid Cell Count Rvw By Proteinase 3 (PR3) < 0.2 Myeloperoxidase Ab < 0.2 HLA-B27 HLA-B27 Interpretation Miscellaneous Test Assessment - Problem List Assessment: Patient Problems Afib (Acute) Cardiomyopathy (Acute) DVT prophylaxis (Acute) Full code status (Acute) Reactive arthritis (Acute) Inguinal hernia, bilateral (Acute) Mitral insufficiency (Acute) Plan: Possible reactive arthropathy vs. early atypical seronegative oligoarticular arthropathy. Recent travel history. Generalized weakness. Overall Mr. Bang continues to make improvement. If he is improved tomorrow, consider tapering Prednisone down by 10mg every 5 days. Follow up with me in 1 week to review all studies. He may need extended rehab to help improve joint mobility
[2019-05-17 18:10] LABS: Cyclic Citrullinated Pept IgG <15.6 U
[2019-05-17] MEDS: Metoprolol Succinate XL TAB* 25 MG PO SCH (18:16)
[2019-05-17 19:47] LABS: Anaplasma phagocytophilum Negative (Negative); B. miyamotoi PCR, B Negative (Negative); Babesia divergens/MO-1 Negative (Negative); Babesia ducani Negative (Negative); Ehrlichia chaffeensis Negative (Negative); Ehrlichia ewingii/canis Negative (Negative); Ehrlichia muris eauclairensis Negative (Negative)
[2019-05-17 21:46] LABS: B. garinii/B. afzellii PCR Negative (Negative)
[2019-05-17] MEDS: PROPYLENE GLYCOL LEFT EYE SCH (22:14)
[2019-05-17] MEDS: GLYCERIN LEFT EYE SCH (22:14)
[2019-05-17] MEDS: PTO: Sacubitril/Valsartan 24/26(NF) 1 TAB PO SCH (22:15)
[2019-05-17] MEDS: Melatonin 3 MG TAB PO SCH (22:18)
[2019-05-18] MEDS: CHOND PO SCH (09:16)
[2019-05-18] MEDS: BORON PO SCH (09:16)
[2019-05-18] MEDS: Sotalol TAB* 80 MG PO SCH (09:16)
[2019-05-18] MEDS: [UNRECOGNIZED DRUG - OTHER] PO SCH (09:16)
[2019-05-18] MEDS: DOXYcycline CAP(*) 100 MG PO SCH (09:16)
[2019-05-18] MEDS: GLUCOSAM PO SCH (09:16)
[2019-05-18] MEDS: MSM PO SCH (09:16)
[2019-05-18] MEDS: Ascorbic Acid TAB* 500 MG PO SCH (09:17)
[2019-05-18] MEDS: Apixaban* 5 MG TAB PO SCH (09:17)
[2019-05-18] MEDS: predniSONE TAB* 20 MG PO SCH (09:17)
[2019-05-18] MEDS: Multivitamins/Minerals TAB PO SCH (09:17)
[2019-05-18 09:41] VITALS: BP 98/68
--- NOTE | 2019-05-18 18:45 | DS ---
CC: Dr. Ferreira; Dr. Harrison; Dr. Pereira DISCHARGE SUMMARY: DATE OF ADMISSION: 05/15/19 DATE OF DISCHARGE: 05/18/19 PRIMARY CARE PROVIDER: Dr. Ferreira. GAS TURBINE POWERPLANT MECHANIC: Dr. Harrison. MANAGER OF CORPORATE COMMUNICATIONS: Dr. Pereira. DISCHARGE DIAGNOSIS: Reactive arthritis. SECONDARY DIAGNOSES: 1. Cardiomyopathy with ejection fraction of 40% to 45%. 2. Atrial fibrillation. 3. Status post mitral valve repair. 4. 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 MEDICATION LIST: 1. Apixaban 5 mg p.o. b.i.d. 2. Vitamin C 500 mg p.o. b.i.d. 3. Cyclobenzaprine 5 mg p.o. at bedtime as needed for pain. 4. Glucosamine/chondroitin 1 tablet p.o. b.i.d. 5. Lubricant eye ointment to the left eye at bedtime. 6. Magnesium oxide 400 mg p.o. daily. 7. Metoprolol succinate 12.5 mg p.o. daily. 8. Mineral oil eye drops 2 drops to the left eye twice a day. 9. Multivitamin 1 tablet p.o. daily. 10. Entresto half a tablet p.o. daily. 11. Sotalol 40 mg p.o. b.i.d. 12. Cialis 20 mg p.o. daily as needed for erectile dysfunction. New medications: 1. Prednisone taper as follows: 30 mg p.o. daily for 5 days, 20 mg daily for 5 days, then continue with 10 mg p.o. daily until you see Dr. Pereira. 2. Acetaminophen 650 mg p.o. q.4 hours p.r.n. pain. 3. Tramadol was discontinued. HOSPITAL COURSE: Mr. Bang is a 73-year-old male with a past medical history as stated above that pr esented to the emergency room with complaints of 1 month of progressive malaise, fatigue associated w ith progressive oligoarthritis involving knees and left ankle and right Achilles tendon pain/edema. For more details about his presentation, I refer you to his history and physical. The patient was started on doxycycline for the possibility of Lyme disease, but he states that the jennifer int swelling continued to progress and it got to the point that he was not able to ambulate, not even with a walker. His workup in the emergency room included ankle x-ray that showed osteoarthritis, peripheral arterial disease, but no acute osseous injury. 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 The patient was seen in consultation by Rheumatology (Dr. Pereira) who performed a knee aspiration. T he fluid showed 16,000 WBC's with 91% neutrophils. Gram stain did not show any organisms and culture is also negative. With the patient's history, the impression was he probably had reactive arthritis , but tick-borne disease associated arthritis was on the differential. The patient was started on pr ednisone 10 mg p.o. b.i.d. with marked improvement of his symptoms. Initially, he was not able to am bulate and required EasyStand for transfers but with the addition of steroids, he was able to stand u p and on the day of discharge, he states that his pain is minimal and he is ambulating well with a wa lker. He feels that he will be able to get inside his home as there is only 1 step for him to get in and he has been living on the first floor of the house for the past month due to his joint pain. As part of his workup, the patient had a CRP that was 96.3. Lyme PCR on the synovial fluid was negat birdie as well as repeat serology. Rheumatoid factor, anti- CCP, AALIYAH, ANCA, HLA-B27 were all negative a s well as tick-borne disease panel. The fluid did not show any crystals. The patient was seen in consultation by Infectious Disease (Dr. Marcos) and he agreed that this was most likely reactive arthritis. He felt that the timing of developing true arthritis early in a tic k-borne infection in multiple joints was unlikely with Lyme as opposed to multiple joint arthralgias early in Lyme. As the patient had traveled to the [facility] in the spring, Dr. Marcos felt th at maybe he had an exposure to chikungunya that could have also predisposed him to this episode of re active arthritis. The serology for chikungunya, IgG is pending at the time of dictation and is to be followed as outpatient. The patient had significant improvement of his symptoms and he is medically stable for discharge. PHYSICAL EXAMINATION: Vital Signs: Temperature 97.7, heart rate 62, respiratory rate is 20, oxygen saturation is 97% on room air, blood pressure is 98/68. General: The patient is a pleasant, elderly gentleman, sitting up in bed, in no acute distress. CVS: Normal S1, S2. Regular rate and rhythm. Chest: Breath sounds present bilaterally with no added sounds. Extremities: The patient's left kne e arthritis is almost resolved with minimal residual edema and warmth is gone. The right knee still h as mild warmth but the edema is also much improved. The most dramatic improvement was on his left an kle that had significant edema and warmth, and at this point the warmth is gone and the edema has greg e down considerably. The right Achilles tendon area is pigment furnace tender on palpation, but the edema has gone down too. Neuro: He is alert, awake, oriented x3 with facial asymmetry unchanged from admissio n and able to move all 4 extremities. DIET: Heart healthy diet. ACTIVITIES: As tolerated. The patient received education with PT on how to negotiate stairs. He al ready has a front wheeled walker at home. DISPOSITION: To home. STATUS WHILE IN THE HOSPITAL: Observation. CONDITION AT THE TIME OF DISCHARGE: Fair. Please keep in mind that this is a summarized version of this patient's hospital stay. If you need m ore information, please feel free to call me at [phone] or please obtain the full medical record s. TIME SPENT: Approximately 45 minutes were spent to complete this discharge. [id number]/[facility] #: [id number]
== END 2019-05-18 12:39 | disposition home or self-care (01) ==
LOC: ED 12:14 → INTOOBSV 16:30 → MEDTELE 16:30 → UNDOADMIN 19:10
PROVIDERS: ADMIT Internal Medicine; ATTEND Internal Medicine
DX: M02.362 Reiter's disease, left knee (principal); M02.361 Reiter's disease, right knee; M02.372 Reiter's disease, left ankle and foot; I42.9 Cardiomyopathy, unspecified; I48.91 Unspecified atrial fibrillation; Z79.899 Other long term (current) drug therapy; Z79.01 Long term (current) use of anticoagulants; M43.6 Torticollis; M79.605 Pain in left leg
CPT/HCPCS: 36415; 80053; 81003; 82164; 83516; 83605; 84484; 85025; 85610; 85730; 86038; 86140; 86200; 86431; 86618; 86790; 86812; 87040; 87070; 87205; 87476; 87640; 87641; 87798; 89051; 89060; 93005; 99284; A9270-GY; G0378; G8978-GP-CL; G8979-GP-CI; J1885; J7512